=== PATIENT | female | born 1960 | race Caucasian/White ===

== ENCOUNTER 2024-10-29 18:28 | Inpatient (IN) ==
--- OUTSIDE RECORDS SUMMARY | 2024-10-29 18:31 | External Medical Summary | Continuity of Care Document ---
Author Name Unknown Organization [id number] Address [address] [place] [phone] Care Team Providers Care Buying Intern Name Role Phone Florecita Tucker Primary Care Physician [phone] [facility]counter [id number] Date(s): 10/03/24 - 10/03/24 [facility] [address] [place], [place] [id number] [facility] Medicine [address] [place] [id number] Encounter Diagnosis Lumbar spondylosis(Discharge Diagnosis) - 10/03/24 Discharge Disposition: Home or Self Care Attending Physician: DO Tang Jina Allergies, Adverse Reactions, Alerts No Known Allergies Immunizations Given and Recorded Vaccine Date Status Refusal Reason influenza virus vaccine, inactivated 09/01/22 Give n influenza virus vaccine, inactivated 10/01/21 Give n Medications amitriptyline 25 mg oral tablet Start: 05/24/24 12:00:00 PM EDT, 1 tab, PO, qhs, Disp# 30 tab, Refills: 2, Pharmacy: [facility] Start Date: 05/24/24 Status: Ordered azelastine 137 mcg/inh (0.1%) nasal spray Start: 01/31/24 1:13:00 PM EDT, 1 spray, intranasal, bid, Disp# 30 mL, Refills: 2, PRN: NEEDED FOR ALLERGIES, Pharmacy: [facility] Start Date: 01/31/24 Status: Ordered ferrous sulfate 325 mg (65 mg elemental iron) oral delayed release tablet Start: 05/24/24 9:51:00 AM EDT, 1 tab, PO, Daily, Disp# 30 tab, Refills: 11, Pharmacy: [facility] Start Date: 05/24/24 Stop Date: 05/19/25 Status: Ordered folic acid 1 mg oral tablet Start: 05/24/24 9:51:00 AM EDT, 1 tab, PO, Daily, Disp# 30 tab, Refills: 11, Pharmacy: [facility] Start Date: 05/24/24 Stop Date: 05/19/25 Status: Ordered gabapentin 400 mg oral capsule Start: 09/18/24 8:37:00 AM EST, 1 cap, PO, tid, Disp# 90 cap, Refills: 1, Pharmacy: [facility] Start Date: 09/18/24 Stop Date: 11/17/24 Status: Ordered lamoTRIgine 25 mg oral tablet Start: 09/08/24 12:52:00 PM EDT, 1 tab, PO, Daily Start Date: 09/08/24 Status: Ordered MAG OXIDE 400MG TAB Start: 09/18/24 7:22:00 AM EST, MAG OXIDE 400MG TAB, 1 tab, PO, Daily, Disp# 30 tab, Refills: 1, Pharmacy [facility] Start Date: 09/18/24 Status: Ordered magnesium oxide 400 mg (241.3 mg elemental magnesium) oral tablet Start: 08/27/23 9:48:00 AM EDT, 1 tab, PO, Daily, Disp# 30 tab, Refills: 11, Pharmacy: [facility] Start Date: 08/27/23 Stop Date: 08/21/24 Status: Ordered meloxicam 15 mg oral tablet Start: 09/15/24 1:34:00 PM EST, 1 tab, PO, Daily, Disp# 30 tab, Pharmacy: [facility] Start Date: 09/15/24 Stop Date: 10/15/24 Status: Ordered pantoprazole 40 mg oral delayed release tablet Start: 12/16/23 1:32:00 PM EST, 1 tab, PO, Daily, Disp# 30 tab, Refills: 5, Pharmacy: [facility] Start Date: 12/16/23 Status: Ordered PARoxetine 40 mg oral tablet Start: 12/15/23 7:21:00 PM EST, 1 tab, PO, Daily, Disp# 90 tab, Refills: 3, Pharmacy: [facility] Start Date: 12/15/23 Status: Ordered propranolol 10 mg oral tablet Start: 06/19/24 2:16:00 PM EDT, 1 tab, PO, bid, Disp# 60 tab, Refills: 5, Pharmacy: [id number] Start Date: 06/19/24 Status: Ordered QUEtiapine 50 mg oral tablet Start: 03/28/24 12:49:00 PM EDT, 2 tab, PO, Daily, Disp# 180 tab, Refills: 1, Pharmacy: [facility] Start Date: 03/28/24 Status: Ordered riboflavin 100 mg oral tablet Start: 05/25/23 1:49:00 PM EDT, 4 tab, PO, Daily, Disp# 120 tab, Pharmacy: [facility] Start Date: 05/25/23 Stop Date: 06/24/23 Status: Ordered SUMAtriptan 50 mg oral tablet Start: 08/10/24 4:33:00 PM EDT, See Instructions, Disp# 9 tab, Refills: 0, TAKE 1 TABLET BY MOUTH ONCE NEEDED FOR MIGRAINE HEADACHE, Pharmacy: [facility] Start Date: 08/10/24 Status: Ordered Mental Status 10/03/24 Barriers to Learning one year None evide nt Mandatory Health Literacy Documentation Yes Health Literacy Communication Barriers N ever Primary Language Portuguese Problem List Condition Confirmation Course Effective Dates Status Health St atus Informant Acute bronchitis Confirmed Active Anxiety Confirmed Active Benign essential HTN Confirmed Active Chronic cough Confirmed Active Chronic diarrhea Confirmed Active Chronic lower back pain Confirmed Active Dizziness Confirmed Active History of urinary incontinence Confirmed Active Benign headache Confirmed Active Bilateral hip pain Confirmed Active Insomnia Confirmed Active Lumbar spondylosis Confirmed Active Migraine Confirmed Active Anxious depression Confirmed Active Myalgia Confirmed Active Night sweats Confirmed Active Body mass index [BMI] 26.0-26.9, adult Confirmed Active Arm pain, left Confirmed Active Fibromatosis, plantar Confirmed Active Rib pain on left side Confirmed Active Daily urinary incontinence Confirmed Active Diagnosis Diagnosis Type Effective Dates Health Status Clinical Service Informant Lumbar spondylosis Discharge Diagnosis 10/03/24 Non-Specified Procedures Procedure Date Related Diagnosis Body Site Status Colonoscopy 1, 2, 3 06/15/24 Compl eted Foot X-ray 4 06/07/23 Completed Hip X-ray 5 02/03/23 Completed Hip arthroplasty Complete d Spine orthopedic surgery Completed 1Transverse colon polyp, polypectomy: Tubular adenoma 2- One 6 mm polyp in the transverse colon, removed with a cold snare. Resected and retrieved. - Redundant colon. - The examination was otherwise normal. 3Repeat colonoscopy in 5 years 4No acute osseous abnormality. 51. Osteopenia and mild degenerative change as above with no acute bony abnormality identified. 2. A left hip arthroplasty is in near anatomic alignment. Social History Social History Type Response Smoking Status Never smoked cigaret martha Sex Sex Representation Female (finding) Ortho Outpt Note * DO Tang Jina: PERFORM, MODIFY Event Display: Ortho Outpt Note Authored Date: Name:NILES IBARRA Patient Number:[id number] :1960 Date of Service:10/03/2024 Primary Care Provider: DO Carl Paige M Referred by: Initial Evaluation Chief Complaint:Kerri san4 yearoldGypsy presents with left low back pain that radiates to the posterior aspect of the left thigh. Symptom:Pain History of Present Illness: Onset:4 weeks_ago after falling off a bench landed on her back Prior trauma / injury/ surgeryof the affected area(s):yes, endorses multiple surgeries in the low back.( surgical records unavailable but CT shows: pete and screw fixation through theL4-5 levels, disc spacer device at L5-S1, L4 and L5 laminectomy.history ofAVNleft hip andleft DAVIDSON Duration / Timing of Symptoms:Intermittent oPain has beenstablesince onset Characteristic of Symptoms:sharp, stabbing, pins and needles/tingling, electrical/shooting oAssociated Neuropathic Symptoms:radiculopathy, no weakness oAssociated Mechanical Joint Symptoms:_no Alleviating Factors:nothing Aggravating Factors:prolonged sitting, prolonged standingand moving her hip Spine or Limb Pain Worse:Limb pain is greater than spine pain Treatments Tried: oMedications: Current:Gabapentin ( recently increased) 400 TID Previous:_Mobic, tylenol oTherapeutic Exercise:_3years ago oInjections:_4 years ago in [place] oOther:ice Functional Status: oWork Status:not working oADLs:difficultywith getting dressed and chores around the house 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 Red Flags:deniesred flag symptoms offever, bowel dysfunction, bladder dysfunction,saddle anesthesia, history of cancer [id number] pound weight loss in the last 4 weeks Problems: Lumbar spondylosis Anxious depression Acute bronchitis History of urinary incontinence Arm pain, left Benign essential HTN Dizziness Bilateral hip pain Chronic lower back pain Myalgia Daily urinary incontinence Chronic cough Fibromatosis, plantar Migraine Night sweats Body mass index [BMI] 26.0-26.9, adult Rib pain on left side Insomnia Benign headache Chronic diarrhea Anxiety Procedure History Procedure Procedure Date Comments Hip arthroplasty Spine orthopedic surgery Colonoscopy 06/15/2024 -Repeat colonoscopy in 5 years -Transverse colon polyp, polypectomy:Tubular adenoma -- One 6 mm polyp in the transverse colon, removed with a cold snare. Resected and retrieved.- Redundant colon. - The examination was otherwise normal. Foot X-ray 06/07/2023 -No acute osseous abnormality. Hip X-ray 02/03/2023 -1. Osteopenia and mild degenerative change as above with no acute bony abnormality identified.2. A left hip arthroplasty is in near anatomic alignment. Social History: Alcohol Details:Beer, Wine, 1-2 times per month Employment/School Details:Employed, Work/School description: [employer]. Exercise Comment(s):does 35,000 steps per day Tobacco Risk Assessment:Denies Tobacco Use Medication List Active Medications Ordered amitriptyline: 1 tab, PO, qhs, 30 tab, 2 Refill(s). azelastine nasal: 1 spray, intranasal, bid, PRN: NEEDED FOR ALLERGIES, 30 mL, 2 Refill(s). ferrous sulfate: 1 tab, PO, Daily, for 30 day, 30 tab, 11 Refill(s). folic acid: 1 tab, PO, Daily, for 30 day, 30 tab, 11 Refill(s). gabapentin: 1 cap, PO, tid, for 30 day, 90 cap, 1 Refill(s). lamoTRIgine: 1 tab, PO, Daily. magnesium oxide: 1 tab, PO, Daily, for 30 day, 30 tab, 11 Refill(s). meloxicam: 1 tab, PO, Daily, for 30 day, 30 tab. pantoprazole: 1 tab, PO, Daily, 30 tab, 5 Refill(s). PARoxetine: 1 tab, PO, Daily, 90 tab, 3 Refill(s). propranolol: 1 tab, PO, bid, 60 tab, 5 Refill(s). QUEtiapine: 2 tab, PO, Daily, 180 tab, 1 Refill(s). riboflavin: 4 tab, PO, Daily, for 30 day, 120 tab. SUMAtriptan: See Instructions, TAKE 1 TABLET BY MOUTH ONCE NEEDED FOR MIGRAINE HEADACHE, 9 tab, 0 Refill(s). unlisted medication: 1 tab, PO, Daily, 30 tab, 1 Refill(s). Medications Inactivated in the Last 72 Hours No medications found. Allergies (2) ActiveReaction NKANone Documented No Known Medication AllergiesNone Documented Family History: Mother: Glaucoma; Macular disease Father: Renal cell carcinoma MGF: Malignant tumor of lung MGM: Type II diabetes mellitus Review of Systems: A comprehensive review of systems was negative except for pertinent items noted in HPI. Physical Examination: Vital Signs: No Vitals Over the Past 24 Hours Found General: Alert and oriented.Patient in no apparent distress. Psych: Affect normal and appropriate. HEENT: Head normocephalic and atraumatic. Neck is supple. Chest: Breathing is non-labored. Skin: There are no gross skin lesions. Gait:Antalgic Lumbar Exam Lumbar Spine: Inspection: Skin intact.surgical site intact AROM:Pain-limited ROMPain, at end range of extension, with ipsilateral oblique extension (facetjoint loading)to the left Left side-bending produces, produces ipsilateral pain. Palpation:Tenderness over, Bilateral, paraspinal muscles/facet joints Tenderness over, Left:Sacroiliac/PSISand left greater trochanter FAIR Test (Piriformis):Negative SI Joint Multitest Regimen of Pain Provocation Tests:Thigh thrust test (Femoral Shear test), Bruno's sign (extreme DAYSI), Gaenslen test (pelvic torsion test)negativeDistraction test (gapping test), Compression test (approximation test)negative Isabel's Sign, Negative Neuro: Sensation:Intact Strength:5/5 throughout bilateral lower limbs, except for the following:pain induced weakness with hip flexion and knee extension DTRs:2+ throughout bilateral lower limbs except for the following:, 0, Achilles (S1)bilaterally Tests for lumbar radiculopathy: Slump (for radicular symptoms):, Negative Phalen's sign for radicular lumbar spinal stenosis (passive extension for up to 1 minute):negative Long tract signs (UMN signs):Ankle clonus, babinski sign, negative RECENT PERTINENT STUDIES: CT lumbar spine, pelvis without contrast 10/01 History: Back pain. Hip pain Comparison: CT abdomen/pelvis 07/02/2023 Findings: There are 5 lumbar type vertebrae. Regarding alignment, the lumbar spine alignment appears preserved. Bilateral transpedicular pete and screw fixation through the L4-5 levels. The level above fixation demonstrate severe discogenic degenerative change, L3-4. There is a disc spacer device at L5-S1. There are L4 and L5 laminectomy changes. There is moderate to severe bilateral neuroforaminal stenosis at L3-4. No substantial neuroforaminal stenosis of the remainder of the lumbar spine. The visualized adjacent paraspinous tissues are grossly within normal limits. A total left hip arthroplasty appears intact. No visualized right or left hip fracture. No perihardware fracture. Small area of avascular necrosis is seen about the subchondral right femoral head without evidence for collapse, measuring approximately 14 mm. Mild to moderate degenerative change of the pubic symphysis. Mild SI joint degenerative change. Impression: No acute bony abnormality of the lumbar spine or pelvis. 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 Fixation changes and laminectomy changes at L4-5. Severe L3-4 discogenic degenerative change. Electronically signed by Chucky Alexander 09-08-2024 5:57 PM EMG/NCS: none ASSESSMENT: 1.Bilateral( L> R) Low BackPainradiating intoposterior left thigh w/ hx of priorsurgeries in the low back.( surgical records unavailable but CT shows: pete and screw fixation through the L4-5 levels, disc spacer device at L5-S1, L4 and L5 laminectomy.history ofAVNleft hipandleft DAVIDSON. LikelyconcomitantL > R Lumbar Facet-mediated Pain givenpain with extension, pain with ipsilateral oblique extension, tenderness over facet joints, facet arthropathy seen on diagnostic imaging Likelyconcomitant Lumbar Radiculopathy given radicular complaints,positive dural tensions signs, sensory deficits, motor deficits PossiblySpinal Stenosis Possible Sacroiliac Joint Pain giventenderness over PSIS/SIJ(L) LikelyconcomitantMyofascial Pain givenpain reproduced with muscular stretch, tenderness to palpation Likely concomitant hypersensitization given hypersensitivety to touch 2.LeftHip Pain s/pleft DAVIDSON Likely Upper Lumbar Radiculopathy Likely Greater Trochanteric Pain Syndrome giventenderness over lateral hip, positive Lucrecia's test PLAN: Diagnostics: Lumbar MRI with and without contrastgiven acute pain, weakness, and concern for lumbar radiculopathy and hx of prior lumbar surgeries and recent trauma to the area Injections: None at this time Patient has had multiple back surgeries and may not be a good candidate for spine injections, pending MRI results, could consider caudal injection __ _ Medications: None at this time She is already taking gabapentin 400 mg TID _ Modalities: Prescription given for home TENS unit Orthotics:/DME None at this time Therapeutic exercise: Pending MRI results, would benefit from PT Consult: Low threshold to refer to ortho (patient requested ) to evaluate left DAVIDSON Education: A lengthy discussion was held with the patient regarding their diagnosis andprognosis. We discussed workup and treatment strategies including physical therapy, pharmacologic management, injections, and surgery The patients questions were sought and answered satisfactorily. Other: Reviewed prior notes fromthe ED and Matilde Brock DO Follow-up visit: Scheduled for:follow up to coincide with completion of, diagnostic testing. Will discuss MRI results and possible PT vs gabapentin increase vs possible caudal. Patient's symptomsare unstable and it is not safe for PT at this time. Advised patient to seek urgent medical attention if they develop new onset progressive weakness and/or bowel/bladder dysfunction Joy Tang DO Sports Medicine and Interventional Spine Physical Medicine & Rehabilitation Total time on the date of the encounter which includes both the lcyu-za-upwd and tjn-vapf-dc-face time personally spent by the physician and/or other qualified health resident caregiver(s) on the day of the encounter consisting of a total of60 minutes(consult level 4) including Medical Decision Making, preparing to see the patient (eg, review of tests), obtaining and/or reviewing separately obtained history, performing a medically appropriate examination and/or evaluation, counseling and educating the patient/family/caregiver,ordering medications, tests, or procedures,referring and communicating with other health workforce investment act career manager, documenting clinical information in the electronic or other health record, independently interpreting results (not separately reported) and communicating results to the patient/ family/caregiver, care Electronic Signature on File CC: Florecita Tucker [id number] [id number] Electronically Reviewed/Signed by: Joy Tang DO Author Signature Dt/Tm:10/03/2024 06:02 PM Division of Sports Medicine [facility] * DO Tang Jina: PERFORM Event Display: Ortho Outpt Note Authored Date: [id number] . Electronic Signature on File Electronically Reviewed/Signed by: Joy Tang DO Author Signature Dt/Tm:10/03/2024 06:36 PM Division of Sports Medicine [facility] Patient Care team information Care Team Personnel Name: MD Maximilian, Viktor Mason Position: Physician - Family Med Member Role: Lifetime Relationship Address: [address] [place] [address] [place] Name: DO Sen Amanda Position: Resident Member Role: Lifetime Relationship Address: [address] [place] [address] [place] Name: KACEY Delgado Katy Marie Position: Nurse Pract - Family Med Member Role: Lifetime Relationship Address: [address] [place] [address] [place] Name: DO Tucker Paige M Position: Resident Member Role: Primary Care Provider Address: [facility] [address]
[2024-10-29] MEDS: MIDAZOLAM HCL 5 MG/ML 2ML VIAL IV STA (18:35)
[2024-10-29] MEDS: SODIUM BICARB 8.4% INJ 50 MEQ/50 ML SYR IV STA ×2 (18:43→21:20)
[2024-10-29] MEDS: EPINEPHrine/NSS 4 MG/254 ML BAG IV SCH (18:49)
--- NOTE | 2024-10-29 18:56 | XRay Report ---
EXAM: Radiograph of the Chest 1 View INDICATION: Intubation. TECHNIQUE: Frontal view of the chest. Image obtained at 6:47 PM. COMPARISON: 08/27/2021 FINDINGS: Lungs and pleural spaces: Shallow inspiration. Patchy right perihilar airspace disease and central airway thickening noted. No pleural effusion or pneumothorax. Heart: Shape and configuration within normal limits allowing for technique. Mediastinum: Normal contour. Bones/joints: No fracture, erosion or dislocation. Soft tissues: No abnormality noted. No radiopaque foreign body noted. Tubes, lines and devices: The endotracheal tube terminates 1.8 cm above the tim. Upper abdomen: No abnormality noted. IMPRESSION: 1. Patchy right perihilar and basilar atelectasis or pneumonia and minimal underlying bronchitis probable. 2. Lines and tubes as above. ACT 112: Negative or not required by law. Electronically signed by Estella Braun 10-29-2024 6:56 PM
[2024-10-29 19:03] LABS: Base Excess VBG 1.6 mEq/L; HCO3 VBG 29 mmol/L; Oxygen Saturation VBG 79.3 %; PCO2 VBG 56 mmHg (38-50); PO2 VBG 50 mmHg; pH VBG 7.32 (7.36-7.41)
[2024-10-29] MEDS: SODIUM CHLORIDE 0.9% 1,000 ML IV ONE (19:03)
[2024-10-29] MEDS: STAT IV Infusion **Titration per Protocol STA (19:03)
[2024-10-29] MEDS: RAPID SEQUENCE INDUCTION BAG ONE (19:03)
[2024-10-29] MEDS: NA BICARBONATE 8.4% 150 MEQ in D5W 1,000 ML IV SCH (19:10)
[2024-10-29 19:12] LABS: Basophils # (auto) 0.05 K/uL (0.00-0.20); Basophils % (auto) 0.9 %; Eosinophils # (auto) 0.12 K/uL (0.00-0.50); Eosinophils % (auto) 2.2 %; Hematocrit (blood only) 32.4 % (37.0-47.0); Immature Granulocytes # (auto) 0.01 K/uL (0.01-0.20); Immature Granulocytes % (auto) 0.2 %; Lymphocytes # (auto) 2.35 K/uL (1.20-3.40); Lymphocytes % (auto) 43.4 %; Mean Corpuscular Hemoglobin 30.3 pg (25.0-34.0); Mean Corpuscular Volume 89.3 fL (80.0-100.0); Mean Platelet Volume 9.1 fL (9.4-12.4); Monocytes # (auto) 0.47 K/uL (0.11-0.59); Monocytes % (auto) 8.7 %; Neutrophils # (auto) 2.41 K/uL (1.40-6.50); Neutrophils % (auto) 44.6 %; Platelet Count 239 K/uL (130-400); RDW Coefficient of Variation 12.8 % (11.5-14.5); RDW Standard Deviation 41.8 fL (36.4-46.3); Red Blood Count 3.63 M/uL (4.20-5.40); White Blood Count 5.41 K/ul (4.8-10.8)
[2024-10-29 19:14] LABS: Appearance Urine Clear (Clear); Bacteria Urine Automated None Seen (None Seen); Bilirubin Urine Negative (Negative); Blood Urine Negative (Negative); Cast Urine Automated 0-2 /lpf (0-2); Color Urine Yellow; Epithelial Cell Urine Auto 0-2 /hpf (0-2); Glucose Urine UA Negative (Negative); Ketones Urine Negative (Negative); Leukocyte Esterase Urine Negative (Negative); Nitrite Urine Negative (Negative); Protein Urine Trace (Negative); RBC Urine Automated 0-2 /hpf (0-2); Specific Gravity Urine 1.004 (1.000-1.030); Urobilinogen Urine Negative (Negative); WBC Urine Automated 0-5 /hpf (0-5)
[2024-10-29 19:22] LABS: Acetaminophen < 3 ug/ml (10-30); Salicylate < 3.0 mg/dl (3.0-30)
[2024-10-29] MEDS ORDERED: MIDAZOLAM BOLUS FROM BAG IV PRN (19:22)
[2024-10-29 19:27] LABS: Alanine Aminotransferase 14 U/L (7-52); Albumin Globulin Ratio 1.5 (0.9-2); Albumin Level 3.5 gm/dl (3.4-5.0); Alkaline Phosphatase 71 U/L (34-104); Anion Gap 9 (3-11); Aspartate Aminotransferase 22 U/L (13-39); BUN Creatinine Ratio 13.6 (10-20); Bilirubin,Total 0.4 mg/dl (0.2-1.0); Blood Urea Nitrogen 15 mg/dl (6-23); Calcium 11.2 mg/dl (8.6-10.3); Carbon Dioxide 28 mmol/L (21-32); Chloride 104 mmol/L (98-107); Creatine Kinase 63 U/L (26-192); Creatinine Clr Calc Pharmacy 60.2 ml/min; Globulin 2.4 gm/dl (2.5-4.0); Glucose 120 mg/dl (70-99(Fasting)); Lipase 24 U/L (11-82); Magnesium 1.7 mg/dl (1.7-2.4); Potassium 3.8 mmol/L (3.5-5.1); Sodium 141 mmol/L (136-145); Total Protein 5.9 gm/dl (6.0-8.3)
[2024-10-29 19:32] LABS: Troponin I High Sensitivity < 2.3 pg/ml (0-14)
[2024-10-29 19:34] LABS: Amphetamines+Metham, Urine Neg (Neg); Barbiturates, Urine Neg (Neg); Benzodiazepine, Urine Neg (Neg); Cocaine, Urine Neg (Neg); Fentanyl, Urine Neg (Neg); MDMA (Ecstacy), Urine Neg (Neg); Marijuana, Urine Pos (Neg); Methadone, Urine Neg (Neg); Opiate, Urine Neg (Neg); Phencyclidine, Urine Neg (Neg)
[2024-10-29] MEDS: GLUCAGON 5 MG in SYRINGE 0 ML IV ONE (19:38)
[2024-10-29] MEDS: MIDAZOLAM HCL 125 MG/250 ML BAG IV PRN (20:04)
[2024-10-29 20:15] LABS: Prothrombin Time 10.7 Seconds (9.0-12.0)
--- NOTE | 2024-10-29 20:32 | Procedure Note ---
Procedure Note Date of Service October 29, 2024 INTERNAL JUGULAR CENTRAL LINE PROCEDURE NOTE: Procedure: Internal Jugular Central Line Placement Proceduralist: Anthony ERAZO ([facility] Attending: Dr. CHO Indication: Central Drug Administration, Poor Venous Access, Multiple Lab Draws Necessary, etc. Anesthesia: Versed Emergent Consent was implied as patient is full code, intubated and requiring rapidly escalating vasactive medicaitions and adequate central access is needed. There was no family immediately available. A time-out was completed verifying correct patient, procedure, site, positioning. Patients RIGHT Neck was scouted and appropriate vessel and target was identified. The site was then cleansed and draped in the typical sterile fashion using Chloraprep. The Internal Jugular Vein and Carotid Artery were identified using ultrasound, the Internal Jugular vein was cannulated under direct ultrasound guidance using an introducer needle on a syringe. Good venous blood return was maintained prior to removal of syringe from introducer needle. Using Seldinger Technique, a guide wire was advanced through the introducer needle without resistance. The introducer needle was removed and ultrasound images were obtained of the guide wire within the Internal Jugular Vein. A sma ll incision was made in penetrating fashion at the guide wire insertion site utilizing an 11 blade scalpel. The dilator was advanced to the vessel without resistance. The dilator was exchanged for the triple lumen catheter which was advanced into the vessel without resistance. The guide wire was removed intact from the catheter without issue. Claves were placed on each catheter tip with confirmation of good blood flow from each lumen. Each port was easily flushed with sterile saline. The catheter was placed at 17 cm and sutured in place. BioPatch was applied to the catheter and a sterile Tegaderm dressing was applied over the catheter with careful attention to sterility. Patient tolerated procedure well. No immediate complications were met. Post procedure x-ray was completed, placement was deep and will be withdrawn approx 2 cm. no pneumothorax was noted. Images obtained are not saved for permanent record as this was emergent/urgent Artery AND Vein visualized: YES Compressible Vein: YES Guidewire or Short Catheter seen in vein prior to dilation: YES [facility] [place] [place] Procedure Codes (Charges) Tubes, Drains, and Vasc Access Procedure 1: Tubes, Drains, and Vasc Access: [id number] Insertion Of Non-tunneled Catheter Age 7 Yrs> Coding CPT Codes Tubes, Drains, and Vasc Access - Tubes, Drains, and Vasc Access: [id number] Insertion Of Non-tunneled Catheter Age 7 Yrs> ([id number]) Additional Codes Date of Service (PG.SURGERY)
--- NOTE | 2024-10-29 20:32 | Procedure Note ---
Procedure Note Date of Service October 29, 2024 ARTERIAL LINE PROCEDURE NOTE: Procedure: Arterial Line Placement Proceduralist: Anthony ERAZO ([facility]) Attending: Dr. CHO Indication: Monitoring on Pressors Anesthesia: xLidocaine 1% Emergent Consent was implied as patient was full code, on escalating doses of vasoactive medications requiring accurate monitoring. A time-out was completed verifying correct patient, procedure, site, positioning, Allens test was performed to ensure adequate perfusion. Patients RIGHT wrist was scouted and appropriate target identified using ultrasound. The wrist prepped and draped in the usual sterile fashion. Ultrasound guidance was used to aid needle placement. A 20g Arrow arterial line was introduced into the RIGHT RADIAL artery, brisk return of blood and wire was advanced without resistence, the catheter was advanced and the needle was removed. There was lack of appropriate blood flow, the catheter was then backed out until spurting blood was noted, the wire was again advanced without resistence and catheter was again threaded, remained withoug appropriate blood flow or waveform. This was attempted x2 times without success, decision was made to do another stick. Again ultrasound was used to directly observe needle and placement, brisk flash of blood was noted and wire was threaded without difficulty, th Catheter was threaded, and the needle was removed again without blood flow, the catheter was then backed out until good spurting blood was noted, the wire was advanced without resistance and the catheter was then advanced over the wire. This resulted in adequate waveform as well as blood return. The line was then sutured in place, however quicly became positional and dampened. Will likely need to re-wire or do another stick. Blood Loss: Minimal Complications: None immediate noted Artery Identified: YES Complications: NONE immediate however very positional and dampened Patient tolerated procedure: WELL 10/30/24- 2299 Re- do arterial line procedure on LEFT Procedure: Arterial Line Placement Proceduralist: Anthony ERAZO ([facility]) Attending: Dr. CHO Indication: Monitoring on Pressors Anesthesia: [x]None Emergent Consent was implied as patient is full code and requiring frequent blood draws and vasoactive support. A time-out was completed verifying correct patient, procedure, site, positioning. Allens test was performed to ensure adequate perfusion. Patients LEFT wrist was prepped and draped in the usual sterile fashion. Ultrasound guidance was used to aid needle placement. A 20g Arrow arterial line was introduced into the LEFT RADIAL artery x1 attempt. Brisk blood flow was noted, wire was advanced without resistance and the catheter was threaded without resistance. The needle was removed with appropriate blood return, it was attached to pressure tubing noting a good arterial waveform. The line was secured with suture. The patient tolerated the procedure well. Blood Loss: Minimal Complications: None immediate Artery Identified: YES Complications: NONE immediate Patient tolerated procedure: [place] [facility] [place] Codes (Charges) Tubes, Drains, and Vasc Access Procedure 1: Tubes, Drains, and Vasc Access: [id number] Arterial Cath/Cannulation Sampling/Monitoring/Transfusion Coding CPT Codes Tubes, Drains, and Vasc Access - Tubes, Drains, and Vasc Access: [id number] Arterial Cath/Cannulation Sampling/Monitoring/Transfusion ([id number]) Additional Codes Date of Service ([email or web address])
--- NOTE | 2024-10-29 20:32 | Critical Care Consultation ---
Date of Consultation October 29, 2024 Assessment & Plan (1) Suicide attempt by beta chavez overdose: (2) Seizure: (3) Respiratory failure: (4) Required emergency intubation: (5) Shock: (6) Intentional overdose: Plan Reason Critically Ill: 64 YOF presented unresponsive requiring intubation in the field, seizure x2, bradycardic and hypotensive. Found with suicide note and multiple empty bottles around the patient, most concerning at this time would be the empty bottle of propranolol found in conjunction with her bradycardia and hypotension. Neuro - Intubated and sedated, encephalopathy, Seizure, concern for anoxic brain injury CAM ICU: JOANNE - Found unresponsive at home requiring intubation in setting of suicide attempt with multiple agents- unknown down time at home - I am concerned for anoxic injury as patient remains with GCS 3T- without gag, without response to painful stimuli, overbreathing vent by 1bpm - too early at this time to prognosticate- she has multiple sedating/altering medications likely on board - Seroquel and lamotrigine as well as seizure x2 earlier - CT head with NO acute intracranial process reported- consider advanced imaging with MRI within 24-48 hours pending neurological exams and EEG - At this time 72 hours would be omar to provide a better prognostication- supportive care at this time with maintaining- normothermia, normoxia, normoglucose, normocarbia - Patient seized x2 - self terminated- versed infusion at this time- EEG in morning- if seizure re-occurs contact tertiary center- likely related to ingestion and/or anoxia - follow neurological exams and pupillometer assessments- currently with NPI > 3.0 bilaterally - Tox screen + marijuana negative- Tylenol and asa level negative - ETOH level 78 - without AGAP Cardiac - shock in setting of likely bb overdose, - Currently responding favorable to - glucagon administration, epinephrine infusion, and BiCARB infusion - appreciate poison control assistance- if worsening of shock - initiate high dose insulin infusion and discuss for possible ECMO - shoot for PH ~7.5 continue BI-carb infusion provide another 100meq bolus now - Qtc monitoring with ECG and telemetry Respiratory - emergent intubation in the field secondary to overdose attempt - ETT placement verified with CXR appropriate - oxygenating well on minimal vent settings - trend EtCO2 GI - NO acute needs - OGT LIWS - NPO RENAL/LYTES - alkalinize as above - goal PH - 7.5-7.55 continue isotonic HCO3 - VBG q4h - replete electrolytes - Parra catheter to gravity ENDO - ICU hyperglycemic protocol HEME - NO acute needs ID - No concern at this time for infective process LINES/IV ACCESS - CVL, Holden, Parra, OGT, ETT Continue use of these lines DVT PROPHYLAXIS - SCDS, DISPO - ICU while intubated and sedated and requiring vasopressor agents Family: Son did call in around 2300 and will be unable to make it in tonight. He was updated on current status to include hemodynamics and concern for neurological injury as well as supportive care and time frame to be able to prognosticate a recovery status. Did ask appropriate questions regarding her current state. He will be in to see her likely in the morning. Did discuss code status and continues with FULL CODE at this time. I have personally spent 63 minutes of critical care time in the direct management of this patient. This is a life/limb threatening event. This includes time spent evaluating patient, direct bedside care, chart review, placing orders, interpretation of diagnostic studies, discussion with consultants, patient, and family members, as well as other required patient management activities. This time is exclusive of all separately billable procedures, and separate from and in addition to any other critical care service time. Thank you for allowing us to participate in the care of this patient. Please refer to my attending physician's documentation for any further recommendations. History of Present Illness Reason for Consultation: Shock secondary to BB overdose as well as other multiple agents- requiring rapidly escalating doses of epinepherine Requesting Physician: Domingo Street MD Attending Physician: Dale Wall MD History of Present Illness 64 YOF presented to the ER via EMS following activation requiring intubation in the field. She was bradycardic, hypotensive as well as seizure x2 that reportedly self terminated but did receive 2mg Ativan enroute. Reportedly patient was found at home unresponsive with suicide note, stating that she has been hoarding her medications with a plan to overdose. She was found with empty bottles of Seroquel, Propranolol, Lamotrigine and these are suspected as her ingestion. In the ER she was given Narcan, 100meq Bicarb, and started on Epinephrine infusion. Due to her poor access in hands and thumb ICU was emergently consulted to assist with obtaining access and monitoring while patient was continued to be resuscitated and case discussion with experts by the ER physician. Access was obtained and patient was favorably responding currently to glucagon administration, Epinephrine infusion, and Bicarbonate infusion. Appreciate recommendations from poison control as well. Will continue with versed infusion for seizure prophylaxis, continue to alkalinize the patient, and continue epinephrine infusion. If further decompensation occurs will initiate high dose insulin infusion and consider possibility for ECMO support. ER physician was able to get in touch with son and he is en route to the hospital if he can obtain a ride, and is currently ~1 hour away. It was passed to me that he said do everything possible at this time. CODE: FULL Allergies Allergy/AdvReac Type Severity Reaction Status Date / Time oxycodone [From OxyContin] Allergy Hives Verified 09/27/24 10:44 Home Medications Medication Instructions Recorded Confirmed Type folic acid 1 mg tablet 1 mg PO DAILY 09/27/24 09/27/24 History gabapentin 400 mg capsule 400 mg PO TID 09/27/24 09/27/24 History lamotrigine 25 mg tablet 25 mg PO DAILY 09/27/24 09/27/24 History magnesium oxide 400 mg (241.3 mg 400 mg PO DAILY 09/27/24 09/27/24 History magnesium) tablet meloxicam 15 mg tablet 15 mg PO DAILY 09/27/24 09/27/24 History pantoprazole 40 mg tablet,delayed 40 mg PO DAILY 09/27/24 09/27/24 History release paroxetine HCl 40 mg tablet 40 mg PO DAILY 09/27/24 09/27/24 History riboflavin (vitamin B2) 100 mg 100 mg PO DAILY 09/27/24 09/27/24 History tablet sumatriptan succinate 25 mg tablet See Rx Instructions PO .COMPLEX 09/27/24 09/27/24 History Patient History Medical History No significant past medical history Surgical History H/O breast augmentation History of hip replacement History of tubal ligation S/P spinal surgery Social History (System 11/05/23 @ 11:29 by Katherin Stover) Smoking Status: Never smoker Preferred Language: 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 Feels Safe at Home: Yes Review of Systems Review of Systems: unable to obtain secondary to intubation and sedation Physical Exam Physical Exam: PHYSICAL EXAM: General: sedated, no spontaneous movements noted Head: Normocephalic, atraumatic Neuro: intubated and sedated, Pupils sluggish bilaterally, overbreathing vent by 1 bpm, unable to illicit gag with suctioning, no response to deep pain at this time- GCS 3T Chest: equal rise and fall of the chest, no accessory muscle use, or thrills, Clear to auscultation, minimal vent settings Cardiac: Regular rate and rhythm, telemetry reviewed- sinus bradycardia, skin cool and dry, central access obtained- on epinephrine infusion. GI: NABS x 4 quadrants, soft, nontender to palpation, OGT placed with good positioning : Parra in place draining dilute yellow urine Skin: no rash or erythema Results & Data Results & Data Vital Signs (Past 12 Hours) Vital Signs Pulse Pulse Resp BP BP Pulse Ox O2 Del Method 10/29/24 20:06 63 18 133/96 100 10/29/24 19:45 59 L 18 144/96 H 100 10/29/24 19:35 53 L 18 125/86 100 10/29/24 19:35 125/86 10/29/24 19:35 125/86 10/29/24 19:30 119/85 10/29/24 19:15 52 L 18 120/69 98 10/29/24 19:00 52 L 18 116/81 96 10/29/24 19:00 52 L 18 96 10/29/24 19:00 116/81 10/29/24 18:57 52 L 18 95 10/29/24 18:55 81/51 L 10/29/24 18:55 81/51 L 10/29/24 18:55 56 L 18 96 10/29/24 18:54 53 L 41/25 L 85 L Mechanical Vent 10/29/24 18:50 119/71 10/29/24 18:50 119/71 10/29/24 18:48 53 L 18 98 10/29/24 18:48 134/88 10/29/24 18:45 53 L 18 99 10/29/24 18:45 95/69 L 10/29/24 18:45 95/69 L 10/29/24 18:40 80/40 L 80 L Mechanical Vent 10/29/24 18:36 52 L 18 10/29/24 18:33 58 L 10/29/24 18:30 53 L 41/25 L Mechanical Vent FiO2 10/29/24 20:06 10/29/24 19:45 10/29/24 19:35 10/29/24 19:35 10/29/24 19:35 10/29/24 19:30 10/29/24 19:15 10/29/24 19:00 10/29/24 19:00 10/29/24 19:00 10/29/24 18:57 10/29/24 18:55 10/29/24 18:55 10/29/24 18:55 60 10/29/24 18:54 60 10/29/24 18:50 10/29/24 18:50 10/29/24 18:48 10/29/24 18:48 10/29/24 18:45 10/29/24 18:45 10/29/24 18:45 10/29/24 18:40 10/29/24 18:36 10/29/24 18:33 10/29/24 18:30 Laboratory Results Abnormal lab results 10/29/24 10/29/24 10/29/24 Range/Units 18:49 18:50 18:54 RBC 3.63 L (4.20-5.40) M/uL Hgb 11.0 L (12.0-16.0) g/dl Hct 32.4 L (37.0-47.0) % MPV 9.1 L (9.4-12.4) fL VBG pH 7.32 L (7.36-7.41) VBG pCO2 56 H (38-50) mmHg Glucose 120 H (70-99(Fasting)) mg/dl Lactate 3.1 H* (0.4-2.0) mmol/L Calcium 11.2 H (8.6-10.3) mg/dl Total Protein 5.9 L (6.0-8.3) gm/dl Globulin 2.4 L (2.5-4.0) gm/dl Urine Protein Trace H (Negative) Salicylates < 3.0 L (3.0-30) mg/dl Acetaminophen < 3 L (10-30) ug/ml U Marijuana (THC) Screen Pos H (Neg) Ethyl Alcohol mg/dL 74.8 H (<10.0) mg/dl 10/29/24 Range/Units 20:20 RBC (4.20-5.40) M/uL Hgb (12.0-16.0) g/dl Hct (37.0-47.0) % MPV (9.4-12.4) fL VBG pH (7.36-7.41) VBG pCO2 (38-50) mmHg Glucose (70-99(Fasting)) mg/dl Lactate 2.7 H* (0.4-2.0) mmol/L Calcium (8.6-10.3) mg/dl Total Protein (6.0-8.3) gm/dl Globulin (2.5-4.0) gm/dl Urine Protein (Negative) Salicylates (3.0-30) mg/dl Acetaminophen (10-30) ug/ml U Marijuana (THC) Screen (Neg) Ethyl Alcohol mg/dL (<10.0) mg/dl Diagnostic Findings Chest X-Ray 10/29/24 18:21 EXAM: Radiograph of the Chest 1 View INDICATION: Intubation. TECHNIQUE: Frontal view of the chest. Image obtained at 6:47 PM. COMPARISON: 08/27/2021 FINDINGS: Lungs and pleural spaces: Shallow inspiration. Patchy right perihilar airspace disease and central airway thickening noted. No pleural effusion or pneumothorax. Heart: Shape and configuration within normal limits allowing for technique. Mediastinum: Normal contour. Bones/joints: No fracture, erosion or dislocation. Soft tissues: No abnormality noted. No radiopaque foreign body noted. Tubes, lines and devices: The endotracheal tube terminates 1.8 cm above the tim. Upper abdomen: No abnormality noted. IMPRESSION: 1. Patchy right perihilar and basilar atelectasis or pneumonia and minimal underlying bronchitis probable. 2. Lines and tubes as above. ACT 112: Negative or not required by law. Electronically signed by Estella Braun 10-29-2024 6:[address] 10/29/24 18:21 Exam(s): CT HEAD Without Contrast EXAM: CT Head Without Intravenous Contrast CLINICAL HISTORY: Altered mental status. TECHNIQUE: Axial computed tomography images of the head/brain without intravenous contrast. CTDI is 56.32 mGy and DLP is 950.49 mGy-cm. Automated exposure control was utilized for the study. A dose lowering technique was utilized adhering to the principles of ALARA. COMPARISON: No relevant prior studies available. FINDINGS: Brain: Unremarkable. No significant white matter disease. No intracranial hemorrhage, mass-effect or midline shift. No abnormal extra axial fluid. No evidence of acute infarct. Ventricles: Unremarkable. No ventriculomegaly. Bones/joints: Unremarkable. No acute fracture. Soft tissues: Unremarkable. Sinuses: Mild mucosal thickening of the ethmoid sinuses and sphenoid sinuses. There is a small amount of fluid in the sphenoid sinuses which likely relate to patient. Mastoid air cells: Unremarkable as visualized. No mastoid effusion. IMPRESSION: No acute intracranial finding. Electronically signed by: Ellen Li MD 10/29/24 22:41 PM Chest X-Ray 10/29/24 19:20 Exam(s): XR CXR 1 VIEW EXAM: XR Chest, 1 View CLINICAL HISTORY: Central line. TECHNIQUE: Frontal view of the chest. COMPARISON: Chest radiograph 10/29/2024 FINDINGS: Lungs: Stable bilateral airspace opacities. Pleural space: Stable bilateral pleural effusions. No pneumothorax. Heart: The cardiac silhouette is stable. Mediastinum: Unremarkable. Normal mediastinal contour. Bones/joints: There are degenerative changes of the spine. No acute fracture. Tubes, lines and devices: NG tube is present with the tip overlying the stomach and the side-port overlying the distal esophagus. The remaining lines and tubes are stable. IMPRESSION: 1. An NG tube is present with the tip overlying the stomach and the side- port overlying the distal esophagus. Advancement is recommended. 2. The remaining findings are stable. Electronically signed by: Ellen Li MD 10/29/24 21:06 PM Medications Administered Home Medications folic acid 1 mg tablet 1 mg PO DAILY 09/27/24 [History Confirmed 09/27/24] gabapentin 400 mg capsule 400 mg PO TID 09/27/24 [History Confirmed 09/27/24] lamotrigine 25 mg tablet 25 mg PO DAILY 09/27/24 [History Confirmed 09/27/24] magnesium oxide 400 mg (241.3 mg magnesium) tablet 400 mg PO DAILY 09/27/24 [History Confirmed 09/27/24] meloxicam 15 mg tablet 15 mg PO DAILY 09/27/24 [History Confirmed 09/27/24] pantoprazole 40 mg tablet,delayed release 40 mg PO DAILY 09/27/24 [History Confirmed 09/27/24] paroxetine HCl 40 mg tablet 40 mg PO DAILY 09/27/24 [History Confirmed 09/27/24] riboflavin (vitamin B2) 100 mg tablet 100 mg PO DAILY 09/27/24 [History Confirmed 09/27/24] sumatriptan succinate 25 mg tablet See Rx Instructions PO .COMPLEX 09/27/24 [History Confirmed 09/27/24] Active Medications Acetaminophen (Acetaminophen 1000 Mg/100 Ml Iv) 1,000 mg IV Q8H PRN PRN Reason: Pain or Fever Stop: 11/01/24 23:16 Albuterol (Albut/Ipratrop 3mg/0.5mg Neb 3 Ml Vial) 3 ml NEB Q2H PRN; Protocol PRN Reason: dyspnea Stop: 11/28/24 23:16 Enoxaparin Sodium (Enoxaparin Inj 40 Mg/0.4 Ml Syr) 40 mg SQ Q24H LALO Stop: 11/28/24 23:16 Epinephrine HCl () 4 mg in 254 mls @ 7.186 mls/hr IV .Q24H LALO; Protocol Stop: 11/28/24 18:44 Last Titration: 10/29/24 21:00 Dose: 0.25 mcg/kg/min, 89.8 mls/hr Sodium Bicarbonate 150 meq/ (Dextrose) 1,150 mls @ 175 mls/hr IV .Q6H35M LALO Stop: 11/28/24 18:59 Last Infusion: 10/29/24 21:15 Dose: 250 mls/hr Midazolam HCl (Versed) 125 mg in 250 mls @ 2 mls/hr IV .Q96H PRN; Protocol PRN Reason: Sedation Stop: 11/28/24 19:21 Last Admin: 10/29/24 20:04 Dose: 2 mg/hr, 4 mls/hr Pantoprazole Sodium (Protonix) 40 mg in 10 mls @ 5 mls/min IV BID LALO Stop: 11/28/24 23:16 Midazolam HCl (Midazolam Bolus From Bag) 2 mg IV Q60M PRN PRN Reason: Sedation Stop: 11/28/24 19:21 Miscellaneous (Icu Protocol For Hyperglycemia) 1 each N/A Q6 LALO Stop: 11/01/24 00:00 Ondansetron HCl (Ondansetron Inj 2 Mg/Ml 2 Ml Vial) 4 mg IV Q6H PRN PRN Reason: NAUSEA/VOMITING Stop: 11/28/24 23:16 Coding Level of Care Code 51917 CRITICAL CARE 1ST 30-74M Diagnoses Suicide attempt by beta chavez overdose T44.7X2A Encounter type: initial encounter Seizure R56.9 Respiratory failure J96.01; J96.02 Chronicity: acute Respiratory failure complication: hypoxia and hypercapnia Required emergency intubation Z98.890 Shock R57.9 Intentional overdose T50.902A (1) Suicide attempt by beta chavez overdose Encounter type: initial encounter Qualified Code(s): T44.7X2A - Poisoning by beta-adrenoreceptor antagonists, intentional self-harm, initial encounter (3) Respiratory failure Chronicity: acute Respiratory failure complication: hypoxia and hypercapnia Qualified Code(s): J96.01 - Acute respiratory failure with hypoxia; J96.02 - Acute respiratory failure with hypercapnia
[2024-10-29 20:34] LABS: Base Excess VBG 0.1 mEq/L; HCO3 VBG 26 mmol/L; Oxygen Saturation VBG 72.8 %; PCO2 VBG 46 mmHg (38-50); PO2 VBG 41 mmHg; pH VBG 7.36 (7.36-7.41)
--- NOTE | 2024-10-29 20:49 | Emergency Department Note ---
Impression & Plan Suicide attempt by multiple drug overdose, Respiratory failure, Seizure, Suicide attempt by beta chavez overdose ED Provider Note Provider: Domingo Street MD CHIEF COMPLAINT: Overdose, unresponsive HISTORY OF PRESENT ILLNESS: Patient is a 64-year-old female presenting here via ambulance unresponsive and intubated. Contacted by EMS prior to arrival that they were on the scene of a patient who apparently had overdosed and was found unresponsive. Patient was not breathing well and they were bagging the patient. I discussed the case with the EMS providers and they plan to secure her airway prior to arrival with intubation. Upon arrival the patient was intubated by EMS reportedly without incident. Patient was reported to have a brief seizure and generalized shaking episode lasting less than a minute. She received 2 mg of IV Ativan prior to arrival. Patient received 100 meq equivalents by report of bicarbonate IV prior to arrival. Blood sugar reportedly in the 160s. Given Narcan prior to arrival without improvement according to EMS. Upon arrival the patient is unresponsive and intubated. No response to painful stimuli. She is unable to provide meaningful history. EMS to bring multiple pill bottles that they said they found with the patient. Also with the patient was a note written on it the patient appeared to express hopeless thoughts and indicating that she was going to attempt to take her own life and had been hoarding her medications. PAST MEDICAL HISTORY: As noted above MEDICATIONS: Reviewed medication bottles presenting here and prior fill history in the computer. SOCIAL HISTORY: Unavailable due to the patient's intubated and critical status PHYSICAL EXAM: GENERAL: Intubated and unresponsive Head: normocephalic and atraumatic EYES: No injection, discharge or icterus. Pupils 4 mm bilaterally and pinpoint. NECK: Trachea midline. Supple. ENT: Mucous membranes pink and moist. LUNGS: Airway patent. No retractions. Breath sounds coarse throughout but bilateral HEART: Regular bradycardic rate and rhythm. No chest wall tenderness ABDOMEN: Soft and non-tender, without guarding or rebound. SKIN: Acyanotic, but pale. Dry extremities. EXTREMITIES: Without swelling, tenderness or deformity NEUROLOGICAL: No response to painful stimuli. No clonus. No cough or gag. EK bpm sinus bradycardia with PAC. No clear acute ST segment elevation with a bit of baseline artifact. QTc 474. QRS duration 112. CONTINUOUS CARDIAC MONITORING: was ordered and showed a heart rate of 50s to 60s bpm in sinus bradycardia to normal sinus rhythm Patient's laboratory studies and imaging reviewed. Differential includes Overdose, toxicologic, infection, hypoglycemia, electrolyte abnormalities, cardiac sources, intracerebral event, neurologic, trauma, as well as other pathologies. IMPRESSION/MEDICAL DECISION MAKING: Patient again intubated unresponsive upon arrival. Patient transition to our monitoring and vent. Patient within a minute or so arrival had another generalized seizure tonic-clonic in nature lasting less than 30 seconds. Self terminated. Order for 5 mg IV dose of Versed. First blood pressure low systolic in the 40s. Patient bradycardic. Given another amp of IV bicarb as well as a gram of calcium chloride. Patient received multiple boluses of IV epinephrine for hypotension and bradycardia total of approximately 500 mcg. Started on epinephrine drip this was titrated for MAP greater than 65. Did reach out quickly via telephone to poison control and discussed the case with them several times. EKG obtained borderline QRS duration. QTc not severely lengthened. Will start on a bicarb drip. Discussed with the Poison Control Center was given 5 mg of IV glucagon. In discussion with them they recommended aggressive use of vasopressor support. They reported that she could be on higher than normal levels of vasopressors with the beta-chavez overdose. Recommended if refractory hypotension/bradycardia to first and even a second line vasopressors considering glucagon drip versus high dose insulin therapy. If worsened hemodynamic status after this ECMO would be possible. No role for HD/CRRT. Patient will be started in discussion with them on a Versed drip to help try to prevent any further seizure-like events. ICU DRILL PRESS OPERATOR HELPER overnight here was contacted and graciously assisted with central line and arterial line placement. Discussed with patient's son via phone and updated and he is and route to the hospital now and wishes for everything to be done. At this time in discussion with the hospitalist, ICU DRILL PRESS OPERATOR HELPER, and after discussion with the toxicology center we will plan at this point to keep the patient here. If she requires escalating supportive measures may necessitate transfer at that time. Additional pressors, insulin therapy, and glucagon therapy can be considered. Tylenol and aspirin levels not elevated. Will follow VBG's and lactates as well as EKG. Will attempt alkalinization with the bicarb and discussed with toxicology. Alcohol level minimally elevated but I do not believe significantly contributing to the toxidrome at this time. Quick bedside echo does show decreased gross cardiac contractility in my estimation. Will obtain a head CT but lower suspicion for intracranial bleed. There is no trauma history. Repeat lactate slightly improved. Repeat VBG does show pH of 7.36. Will increase bicarb drip. X-ray obtained does show appropriate ET tube and may be a slightly deep central line placement. No pneumothorax visualized. Patient's son was updated via phone. Patient's son would like any updates with decline and update in the morning at minimum. DIAGNOSIS: Intentional polysubstance overdose including beta-chavez overdose, respiratory failure, shock, seizures DISPOSITION: Hospitalist will evaluate as well as the ICU Critical Care I have personally spent 125 minutes of critical care time in the direct management of this patient. This includes bedside care, interpretation of diagnostic studies, and testing, discussion with consultants, patient, and family members, and other required patient management activities. These 125 minutes is in excess of all separately billable procedures. Past Med/Surg History Problem List (Updated 10/29/24 @ 21:04 by KACEY Garza) Intentional overdose Shock Required emergency intubation Suicide attempt by beta chavez overdose (Acute) Seizure (Acute) Respiratory failure (Acute) Suicide attempt by multiple drug overdose (Acute) Mixed incontinence Urinary symptom or sign Medical History No significant past medical history Surgical History H/O breast augmentation History of hip replacement History of tubal ligation S/P spinal surgery Social History (System 11/05/23 @ 11:29 by Katherin Stover) Smoking Status: Never smoker Preferred Language: Vietnamese Feels Safe at Home: Yes Allergies Allergies Allergy/AdvReac Type Severity Reaction Status Date / Time oxycodone [From OxyContin] Allergy Hives Verified 09/27/24 10:44 Home Meds Home Medications Medication Instructions Recorded Confirmed folic acid 1 mg tablet 1 mg PO DAILY 09/27/24 09/27/24 gabapentin 400 mg capsule 400 mg PO TID 09/27/24 09/27/24 lamotrigine 25 mg tablet 25 mg PO DAILY 09/27/24 09/27/24 magnesium oxide 400 mg (241.3 mg 400 mg PO DAILY 09/27/24 09/27/24 magnesium) tablet meloxicam 15 mg tablet 15 mg PO DAILY 09/27/24 09/27/24 pantoprazole 40 mg tablet,delayed 40 mg PO DAILY 09/27/24 09/27/24 release paroxetine HCl 40 mg tablet 40 mg PO DAILY 09/27/24 09/27/24 riboflavin (vitamin B2) 100 mg 100 mg PO DAILY 09/27/24 09/27/24 tablet sumatriptan succinate 25 mg tablet See Rx Instructions PO .COMPLEX 09/27/24 09/27/24 Results & Data (ED) Vital Signs Vital Signs - 24 hr 10/29/24 18:30 10/29/24 18:33 10/29/24 18:36 Temperature Temperature Source Pulse Rate 58 L 52 L Pulse Rate [Apical] 53 L Pulse Rate from SpO2 Sensor Respiratory Rate 18 Blood Pressure Blood Pressure [Left Arm] 41/25 L Blood Pressure Mean Blood Pressure Mean [Left Arm] 30 Blood Pressure Position Blood Pressure Position [Left Arm] Lying Pulse Oximetry Oxygen Delivery Method Mechanical Vent Fraction of Inspired Oxygen SaO2/FiO2 Ratio Sepsis New/Unexplained Change in Mental Status Sepsis Action Taken by Nursing End-Tidal CO2 44 10/29/24 18:40 10/29/24 18:45 10/29/24 18:45 Temperature Temperature Source Pulse Rate Pulse Rate [Apical] Pulse Rate from SpO2 Sensor Respiratory Rate Blood Pressure 95/69 L 95/69 L Blood Pressure [Left Arm] 80/40 L Blood Pressure Mean 75 75 Blood Pressure Mean [Left Arm] 53 Blood Pressure Position Blood Pressure Position [Left Arm] Lying Pulse Oximetry 80 L Oxygen Delivery Method Mechanical Vent Fraction of Inspired Oxygen SaO2/FiO2 Ratio Sepsis New/Unexplained Change in Mental Status Sepsis Action Taken by Nursing End-Tidal CO2 10/29/24 18:45 10/29/24 18:48 10/29/24 18:48 Temperature Temperature Source Pulse Rate 53 L 53 L Pulse Rate [Apical] Pulse Rate from SpO2 Sensor 53 L 53 L Respiratory Rate 18 18 Blood Pressure 134/88 Blood Pressure [Left Arm] Blood Pressure Mean 106 Blood Pressure Mean [Left Arm] Blood Pressure Position Blood Pressure Position [Left Arm] Pulse Oximetry 99 98 Oxygen Delivery Method Fraction of Inspired Oxygen SaO2/FiO2 Ratio Sepsis New/Unexplained Change in Mental Status Sepsis Action Taken by Nursing End-Tidal CO2 38 37 10/29/24 18:50 10/29/24 18:50 10/29/24 18:54 Temperature Temperature Source Pulse Rate 53 L Pulse Rate [Apical] Pulse Rate from SpO2 Sensor Respiratory Rate Blood Pressure 119/71 119/71 41/25 L Blood Pressure [Left Arm] Blood Pressure Mean 96 96 30 Blood Pressure Mean [Left Arm] Blood Pressure Position Lying Blood Pressure Position [Left Arm] Pulse Oximetry 85 L Oxygen Delivery Method Mechanical Vent Fraction of Inspired Oxygen 60 SaO2/FiO2 Ratio 141 Sepsis New/Unexplained Change in Mental Status N/A Sepsis Action Taken by Nursing No Action Required End-Tidal CO2 10/29/24 18:55 10/29/24 18:55 10/29/24 18:55 Temperature Temperature Source Pulse Rate 56 L Pulse Rate [Apical] Pulse Rate from SpO2 Sensor Respiratory Rate 18 Blood Pressure 81/51 L 81/51 L Blood Pressure [Left Arm] Blood Pressure Mean 59 59 Blood Pressure Mean [Left Arm] Blood Pressure Position Blood Pressure Position [Left Arm] Pulse Oximetry 96 Oxygen Delivery Method Fraction of Inspired Oxygen 60 SaO2/FiO2 Ratio Sepsis New/Unexplained Change in Mental Status Sepsis Action Taken by Nursing End-Tidal CO2 43 10/29/24 18:57 10/29/24 19:00 10/29/24 19:00 Temperature Temperature Source Pulse Rate 52 L 52 L Pulse Rate [Apical] Pulse Rate from SpO2 Sensor 52 L 52 L Respiratory Rate 18 18 Blood Pressure 116/81 Blood Pressure [Left Arm] Blood Pressure Mean 89 Blood Pressure Mean [Left Arm] Blood Pressure Position Blood Pressure Position [Left Arm] Pulse Oximetry 95 96 Oxygen Delivery Method Fraction of Inspired Oxygen SaO2/FiO2 Ratio Sepsis New/Unexplained Change in Mental Status Sepsis Action Taken by Nursing End-Tidal CO2 33 36 10/29/24 19:00 10/29/24 19:15 10/29/24 19:30 Temperature Temperature Source Pulse Rate 52 L 52 L Pulse Rate [Apical] Pulse Rate from SpO2 Sensor 52 L 52 L Respiratory Rate 18 18 Blood Pressure 116/81 120/69 119/85 Blood Pressure [Left Arm] Blood Pressure Mean 89 97 94 Blood Pressure Mean [Left Arm] Blood Pressure Position Blood Pressure Position [Left Arm] Pulse Oximetry 96 98 Oxygen Delivery Method Fraction of Inspired Oxygen SaO2/FiO2 Ratio Sepsis New/Unexplained Change in Mental Status Sepsis Action Taken by Nursing End-Tidal CO2 36 36 10/29/24 19:35 10/29/24 19:35 10/29/24 19:35 Temperature Temperature Source Pulse Rate 53 L Pulse Rate [Apical] Pulse Rate from SpO2 Sensor 53 L Respiratory Rate 18 Blood Pressure 125/86 125/86 125/86 Blood Pressure [Left Arm] Blood Pressure Mean 97 97 97 Blood Pressure Mean [Left Arm] Blood Pressure Position Blood Pressure Position [Left Arm] Pulse Oximetry 100 Oxygen Delivery Method Fraction of Inspired Oxygen SaO2/FiO2 Ratio Sepsis New/Unexplained Change in Mental Status Sepsis Action Taken by Nursing End-Tidal CO2 34 10/29/24 19:45 10/29/24 20:06 10/29/24 20:33 Temperature Temperature Source Pulse Rate 59 L 63 59 L Pulse Rate [Apical] Pulse Rate from SpO2 Sensor 59 L 63 60 Respiratory Rate 18 18 18 Blood Pressure 144/96 H 133/96 109/72 Blood Pressure [Left Arm] Blood Pressure Mean 112 108 84 Blood Pressure Mean [Left Arm] Blood Pressure Position Blood Pressure Position [Left Arm] Pulse Oximetry 100 100 100 Oxygen Delivery Method Fraction of Inspired Oxygen SaO2/FiO2 Ratio Sepsis New/Unexplained Change in Mental Status Sepsis Action Taken by Nursing End-Tidal CO2 35 34 34 10/29/24 20:37 10/29/24 20:39 10/29/24 20:45 Temperature Temperature Source Pulse Rate 62 58 L Pulse Rate [Apical] Pulse Rate from SpO2 Sensor 59 L Respiratory Rate 18 18 Blood Pressure 104/72 95/71 L Blood Pressure [Left Arm] Blood Pressure Mean 82 77 Blood Pressure Mean [Left Arm] Blood Pressure Position Blood Pressure Position [Left Arm] Pulse Oximetry 99 100 Oxygen Delivery Method Fraction of Inspired Oxygen 40 SaO2/FiO2 Ratio Sepsis New/Unexplained Change in Mental Status Sepsis Action Taken by Nursing End-Tidal CO2 34 34 10/29/24 20:51 10/29/24 20:55 10/29/24 21:00 Temperature Temperature Source Pulse Rate 56 L Pulse Rate [Apical] Pulse Rate from SpO2 Sensor 56 L Respiratory Rate 18 Blood Pressure 111/75 108/78 111/78 Blood Pressure [Left Arm] Blood Pressure Mean 87 87 85 Blood Pressure Mean [Left Arm] Blood Pressure Position Blood Pressure Position [Left Arm] Pulse Oximetry 100 Oxygen Delivery Method Fraction of Inspired Oxygen SaO2/FiO2 Ratio Sepsis New/Unexplained Change in Mental Status Sepsis Action Taken by Nursing End-Tidal CO2 34 10/29/24 21:10 10/29/24 21:10 10/29/24 21:15 Temperature Temperature Source Pulse Rate Pulse Rate [Apical] Pulse Rate from SpO2 Sensor Respiratory Rate Blood Pressure 107/75 107/75 116/79 Blood Pressure [Left Arm] Blood Pressure Mean 83 83 95 Blood Pressure Mean [Left Arm] Blood Pressure Position Blood Pressure Position [Left Arm] Pulse Oximetry Oxygen Delivery Method Fraction of Inspired Oxygen SaO2/FiO2 Ratio Sepsis New/Unexplained Change in Mental Status Sepsis Action Taken by Nursing End-Tidal CO2 10/29/24 21:20 10/29/24 21:21 10/29/24 21:24 Temperature Temperature Source Pulse Rate 56 L 57 L Pulse Rate [Apical] Pulse Rate from SpO2 Sensor 56 L 57 L Respiratory Rate 18 18 Blood Pressure 108/78 147/97 H Blood Pressure [Left Arm] Blood Pressure Mean 86 113 Blood Pressure Mean [Left Arm] Blood Pressure Position Blood Pressure Position [Left Arm] Pulse Oximetry 100 100 Oxygen Delivery Method Fraction of Inspired Oxygen SaO2/FiO2 Ratio Sepsis New/Unexplained Change in Mental Status Sepsis Action Taken by Nursing End-Tidal CO2 37 36 10/29/24 21:30 10/29/24 21:48 Temperature 36.1 C L Temperature Source Parra Cath ( Temp Sensing) Pulse Rate 57 L Pulse Rate [Apical] 56 L Pulse Rate from SpO2 Sensor Respiratory Rate 18 18 Blood Pressure 137/90 Blood Pressure [Left Arm] 126/78 Blood Pressure Mean 108 Blood Pressure Mean [Left Arm] 94 Blood Pressure Position Blood Pressure Position [Left Arm] Pulse Oximetry 100 Oxygen Delivery Method Mechanical Vent Fraction of Inspired Oxygen SaO2/FiO2 Ratio Sepsis New/Unexplained Change in Mental Status Sepsis Action Taken by Nursing End-Tidal CO2 Laboratory Data 10/29/24 18:49 10/29/24 18:49 Lab Results 10/29/24 10/29/24 10/29/24 Range/Units 18:49 18:50 18:54 WBC 5.41 (4.8-10.8) K/ul RBC 3.63 L (4.20-5.40) M/uL Hgb 11.0 L (12.0-16.0) g/dl Hct 32.4 L (37.0-47.0) % MCV 89.3 (80.0-100.0) fL MCH 30.3 (25.0-34.0) pg MCHC 34.0 (32.0-36.0) g/dL RDW Std Deviation 41.8 (36.4-46.3) fL RDW Coeff of Paulino 12.8 (11.5-14.5) % Plt Count 239 (130-400) K/uL MPV 9.1 L (9.4-12.4) fL Immature Gran % (Auto) 0.2 % Neut % (Auto) 44.6 % Lymph % (Auto) 43.4 % Perkins % (Auto) 8.7 % Eos % (Auto) 2.2 % Baso % (Auto) 0.9 % Neut # (Auto) 2.41 (1.40-6.50) K/uL Lymph # (Auto) 2.35 (1.20-3.40) K/uL Perkins # (Auto) 0.47 (0.11-0.59) K/uL Eos # (Auto) 0.12 (0.00-0.50) K/uL Baso # (Auto) 0.05 (0.00-0.20) K/uL Immature Gran # (Auto) 0.01 (0.01-0.20) K/uL PT 10.7 (9.0-12.0) Seconds INR 1.0 (0.9-1.1) VBG pH 7.32 L (7.36-7.41) VBG pCO2 56 H (38-50) mmHg VBG pO2 50 mmHg VBG HCO3 29 mmol/L VBG O2 Saturation 79.3 % VBG Base Excess 1.6 mEq/L Carboxyhemoglobin 1.4 % THgb Sodium 141 (136-145) mmol/L Potassium 3.8 (3.5-5.1) mmol/L Chloride 104 (98-107) mmol/L Carbon Dioxide 28 (21-32) mmol/L Anion Gap 9 (3-11) BUN 15 (6-23) mg/dl Creatinine 1.10 (0.6-1.2) mg/dl Est Cr Clr Drug Dosing 60.2 ml/min eGFR 56.81 BUN/Creatinine Ratio 13.6 (10-20) Glucose 120 H (70-99(Fasting)) mg/dl Lactate 3.1 H* (0.4-2.0) mmol/L Calcium 11.2 H (8.6-10.3) mg/dl Phosphorus 4.1 (2.5-4.9) mg/dl Magnesium 1.7 (1.7-2.4) mg/dl Total Bilirubin 0.4 (0.2-1.0) mg/dl AST 22 (13-39) U/L ALT 14 (7-52) U/L Alkaline Phosphatase 71 (34-104) U/L Total Creatine Kinase 63 (26-192) U/L Troponin I High Sens < 2.3 (0-14) pg/ml Total Protein 5.9 L (6.0-8.3) gm/dl Albumin 3.5 (3.4-5.0) gm/dl Globulin 2.4 L (2.5-4.0) gm/dl Albumin/Globulin Ratio 1.5 (0.9-2) Lipase 24 (11-82) U/L Urine Color Yellow Urine Appearance Clear (Clear) Urine pH 7.0 (4.5-7.5) Ur Specific [place] 1.004 (1.000-1.030) Urine Protein Trace H (Negative) Urine Glucose (UA) Negative (Negative) Urine Ketones Negative (Negative) Urine Blood Negative (Negative) Urine Nitrite Negative (Negative) Urine Bilirubin Negative (Negative) Urine Urobilinogen Negative (Negative) Ur Leukocyte Esterase Negative (Negative) Urine WBC (Auto) 0-5 (0-5) /hpf Urine RBC (Auto) 0-2 (0-2) /hpf U Hyaline Cast (Auto) 0-2 (0-2) /lpf U Epithel Cells (Auto) 0-2 (0-2) /hpf Urine Bacteria (Auto) None Seen (None Seen) Salicylates < 3.0 L (3.0-30) mg/dl Urine Opiates Screen Neg (Neg) Ur Methadone, Qual Neg (Neg) Urine Fentanyl Screen Neg (Neg) Acetaminophen < 3 L (10-30) ug/ml Urine Barbiturates Neg (Neg) Ur Phencyclidine (PCP) Neg (Neg) U Amphetamin/Meth Scrn Neg (Neg) MDMA (Ecstasy) Screen Neg (Neg) U Benzodiazepines Scrn Neg (Neg) Ur Cocaine Metabolite Neg (Neg) U Marijuana (THC) Screen Pos H (Neg) Ethyl Alcohol mg/dL 74.8 H (<10.0) mg/dl SARS-CoV-2, RNA, NAAT (NEGATIVE) 10/29/24 10/29/24 Range/Units 19:05 20:20 WBC (4.8-10.8) K/ul RBC (4.20-5.40) M/uL Hgb (12.0-16.0) g/dl Hct (37.0-47.0) % MCV (80.0-100.0) fL MCH (25.0-34.0) pg MCHC (32.0-36.0) g/dL RDW Std Deviation (36.4-46.3) fL RDW Coeff of Paulino (11.5-14.5) % Plt Count (130-400) K/uL MPV (9.4-12.4) fL Immature Gran % (Auto) % Neut % (Auto) % Lymph % (Auto) % Perkins % (Auto) % Eos % (Auto) % Baso % (Auto) % Neut # (Auto) (1.40-6.50) K/uL Lymph # (Auto) (1.20-3.40) K/uL [place] # (Auto) (0.11-0.59) K/uL Eos # (Auto) (0.00-0.50) K/uL Baso # (Auto) (0.00-0.20) K/uL Immature Gran # (Auto) (0.01-0.20) K/uL PT (9.0-12.0) Seconds INR (0.9-1.1) VBG pH 7.36 (7.36-7.41) VBG pCO2 46 (38-50) mmHg VBG pO2 41 mmHg VBG HCO3 26 mmol/L VBG O2 Saturation 72.8 % VBG Base Excess 0.1 mEq/L Carboxyhemoglobin % THgb Sodium (136-145) mmol/L Potassium (3.5-5.1) mmol/L Chloride (98-107) mmol/L Carbon Dioxide (21-32) mmol/L Anion Gap (3-11) BUN (6-23) mg/dl Creatinine (0.6-1.2) mg/dl Est Cr Clr Drug Dosing ml/min eGFR BUN/Creatinine Ratio (10-20) Glucose (70-99(Fasting)) mg/dl Lactate 2.7 H* (0.4-2.0) mmol/L Calcium (8.6-10.3) mg/dl Phosphorus (2.5-4.9) mg/dl Magnesium (1.7-2.4) mg/dl Total Bilirubin (0.2-1.0) mg/dl AST (13-39) U/L ALT (7-52) U/L Alkaline Phosphatase (34-104) U/L Total Creatine Kinase (26-192) U/L Troponin I High Sens (0-14) pg/ml Total Protein (6.0-8.3) gm/dl Albumin (3.4-5.0) gm/dl Globulin (2.5-4.0) gm/dl Albumin/Globulin Ratio (0.9-2) Lipase (11-82) U/L Urine Color Urine Appearance (Clear) Urine pH (4.5-7.5) Ur Specific [place] (1.000-1.030) Urine Protein (Negative) Urine Glucose (UA) (Negative) Urine Ketones (Negative) Urine Blood (Negative) Urine Nitrite (Negative) Urine Bilirubin (Negative) Urine Urobilinogen (Negative) Ur Leukocyte Esterase (Negative) Urine WBC (Auto) (0-5) /hpf Urine RBC (Auto) (0-2) /hpf U Hyaline Cast (Auto) (0-2) /lpf U Epithel Cells (Auto) (0-2) /hpf Urine Bacteria (Auto) (None Seen) Salicylates (3.0-30) mg/dl Urine Opiates Screen (Neg) Ur Methadone, Qual (Neg) Urine Fentanyl Screen (Neg) Acetaminophen (10-30) ug/ml Urine Barbiturates (Neg) Ur Phencyclidine (PCP) (Neg) U Amphetamin/Meth Scrn (Neg) MDMA (Ecstasy) Screen (Neg) U Benzodiazepines Scrn (Neg) Ur Cocaine Metabolite (Neg) U Marijuana (THC) Screen (Neg) Ethyl Alcohol mg/dL (<10.0) mg/dl SARS-CoV-2, RNA, NAAT NEGATIVE (NEGATIVE) Administered Medications Epinephrine HCl () 4 mg in 254 mls @ 7.186 mls/hr IV .Q24H [facility]; Protocol Stop: 11/28/24 18:44 Last Titration: 10/29/24 21:00 Dose: 0.25 mcg/kg/min, 89.8 mls/hr Documented By: PAOLA Co-signed By: ANIKA Titration: 10/29/24 20:20 Dose: 0.2 mcg/kg/min, 71.9 mls/hr Documented By: PAOLA Co-signed By: LLUVIA Titration: 10/29/24 19:10 Dose: 0.3 mcg/kg/min, 107.8 mls/hr Documented By: PAOLA Co-signed By: LLUVIA Titration: 10/29/24 18:56 Dose: 0.03 mcg/kg/min, 10.8 mls/hr Documented By: PAOLA Co-signed By: CHIQUIS Admin: 10/29/24 18:49 Dose: 0.02 mcg/kg/min, 7.2 mls/hr Documented By: PAOLA Co-signed By: CHIQUIS Sodium Bicarbonate 150 meq/ (Dextrose) 1,150 mls @ 0 mls/hr IV .Q0M LALO Stop: 11/28/24 18:59 Last Infusion: 10/29/24 21:15 Dose: 250 mls/hr Documented By: Admin: 10/29/24 19:10 Dose: 150 mls/hr Documented By: ANDREW Midazolam HCl (Versed) 125 mg in 250 mls @ 2 mls/hr IV .Q96H PRN; Protocol PRN Reason: Sedation Stop: 11/28/24 19:21 Last Admin: 10/29/24 20:04 Dose: 2 mg/hr, 4 mls/hr Documented By: PAOLA Co-signed By: CHIQUIS Discontinued Medications Sodium Chloride (Nss) 1,000 mls @ 999 mls/hr IV .Q1H1M ONE Stop: 10/29/24 19:37 Last Infusion: 10/29/24 20:30 Dose: Infused Documented By: Admin: 10/29/24 19:03 Dose: 999 mls/hr Documented By: ANDREW Glucagon 5 mg/ Syringe 5 mls @ 1 mls/min IV NOW ONE Stop: 10/29/24 18:55 Last Admin: 10/29/24 19:38 Dose: 1 mls/min Documented By: PAOLA Midazolam HCl (Midazolam Hcl 5 Mg/Ml 2ml Vial) 5 mg IV NOW STA Stop: 10/29/24 18:33 Last Admin: 10/29/24 18:35 Dose: 5 mg Documented By: ANDREW Miscellaneous (Rapid Sequence Induction Bag) Confirm Administered Dose 1 each N/A .STK-MED ONE Stop: 10/29/24 18:33 Last Admin: 10/29/24 19:03 Dose: 1 each Documented By: ANDREW Miscellaneous (Stat Iv Infusion Titration Per Protocol) 1 each N/A NOW STA Stop: 10/29/24 18:38 Last Admin: 10/29/24 19:03 Dose: 1 each Documented By: ANDREW Sodium Bicarbonate (Sodium Bicarb 8.4% Inj 50 Meq/50 Ml Syr) 50 meq IV NOW STA Stop: 10/29/24 18:38 Last Admin: 10/29/24 18:43 Dose: 50 meq Documented By: ASHLEYK Sodium Bicarbonate (Sodium Bicarb 8.4% Inj 50 Meq/50 Ml Syr) 100 meq IV NOW STA Stop: 10/29/24 21:17 Last Admin: 10/29/24 21:20 Dose: 100 meq Documented By: CARLTONK Imaging Data Radiologist's Impression: Chest X-Ray 10/29/24 18:21 EXAM: Radiograph of the Chest 1 View INDICATION: Intubation. TECHNIQUE: Frontal view of the chest. Image obtained at 6:47 PM. COMPARISON: 08/27/2021 FINDINGS: Lungs and pleural spaces: Shallow inspiration. Patchy right perihilar airspace disease and central airway thickening noted. No pleural effusion or pneumothorax. Heart: Shape and configuration within normal limits allowing for technique. Mediastinum: Normal contour. Bones/joints: No fracture, erosion or dislocation. Soft tissues: No abnormality noted. No radiopaque foreign body noted. Tubes, lines and devices: The endotracheal tube terminates 1.8 cm above the tim. Upper abdomen: No abnormality noted. IMPRESSION: 1. Patchy right perihilar and basilar atelectasis or pneumonia and minimal underlying bronchitis probable. 2. Lines and tubes as above. ACT 112: Negative or not required by law. Electronically signed by Estella Braun 10-29-2024 6:56 PM Chest X-Ray 10/29/24 19:20 Exam(s): XR CXR 1 VIEW EXAM: XR Chest, 1 View CLINICAL HISTORY: Central line. TECHNIQUE: Frontal view of the chest. COMPARISON: Chest radiograph 10/29/2024 FINDINGS: Lungs: Stable bilateral airspace opacities. Pleural space: Stable bilateral pleural effusions. No pneumothorax. Heart: The cardiac silhouette is stable. Mediastinum: Unremarkable. Normal mediastinal contour. Bones/joints: There are degenerative changes of the spine. No acute fracture. Tubes, lines and devices: NG tube is present with the tip overlying the stomach and the side-port overlying the distal esophagus. The remaining lines and tubes are stable. IMPRESSION: 1. An NG tube is present with the tip overlying the stomach and the side- port overlying the distal esophagus. Advancement is recommended. 2. The remaining findings are stable. Electronically signed by: Ellen Li MD 10/29/24 21:06 PM Discharge Plan Visit Data Chief Complaint: Overdose (Intentional) Stated Complaint: OVERDOSE ED Provider: [address] Discharge Problem: Suicide attempt by multiple drug overdose, Respiratory failure, Seizure, Suicide attempt by beta chavez overdose Patient Disposition: Being Evaluated by Hospitalist Forms Stand Alone Forms: My [facility], Suicide Prevention Resources Prescriptions Prescriptions: No Action gabapentin 400 mg capsule 400 mg PO TID magnesium oxide 400 mg (241.3 mg magnesium) tablet 400 mg PO DAILY meloxicam 15 mg tablet 15 mg PO DAILY riboflavin (vitamin B2) 100 mg tablet 100 mg PO DAILY paroxetine HCl 40 mg tablet 40 mg PO DAILY folic acid 1 mg tablet 1 mg PO DAILY lamotrigine 25 mg tablet 25 mg PO DAILY pantoprazole 40 mg tablet,delayed release (DR/EC) 40 mg PO DAILY sumatriptan succinate 25 mg tablet See Rx Instructions PO .COMPLEX Rx Instructions: take 1 tab at onset of headache; if no relief may repeat 1 tab after at least 2 hrs; max = 4 tabs/24 hr PO Referrals Referrals: Florecita Tucker DO [Primary Care Provider] - Discharge Problem: Suicide attempt by multiple drug overdose Qualifiers: Encounter type: initial encounter Qualified Code(s): T50.912A - Poisoning by multiple unspecified drugs, medicaments and biological substances, intentional self-harm, initial encounter Respiratory failure Qualifiers: Chronicity: acute Respiratory failure complication: hypoxia and hypercapnia Q ualified Code(s): J96.01 - Acute respiratory failure with hypoxia Suicide attempt by beta chavez overdose Qualifiers: Encounter type: initial encounter Qualified Code(s): T44.7X2A - Poisoning by beta-adrenoreceptor antagonists, intentional self-harm, initial encounter
--- NOTE | 2024-10-29 21:07 | XRay Report ---
Exam(s): XR CXR 1 VIEW EXAM: XR Chest, 1 View CLINICAL HISTORY: Central line. TECHNIQUE: Frontal view of the chest. COMPARISON: Chest radiograph 10/29/2024 FINDINGS: Lungs: Stable bilateral airspace opacities. Pleural space: Stable bilateral pleural effusions. No pneumothorax. Heart: The cardiac silhouette is stable. Mediastinum: Unremarkable. Normal mediastinal contour. Bones/joints: There are degenerative changes of the spine. No acute fracture. Tubes, lines and devices: NG tube is present with the tip overlying the stomach and the side-port overlying the distal esophagus. The remaining lines and tubes are stable. IMPRESSION: 1. An NG tube is present with the tip overlying the stomach and the side- port overlying the distal esophagus. Advancement is recommended. 2. The remaining findings are stable. Electronically signed by: Ellen Li MD 10/29/24 21:06 PM
--- NOTE | 2024-10-29 21:21 | History & Physical Report ---
Date of Service October 29, 2024 Assessment & Plan (1) Admitted to intensive care unit: (2) Intentional overdose: (3) Shock: (4) Required emergency intubation: (5) Suicide attempt by beta chavez overdose: (6) Seizure: (7) Respiratory failure: (8) Suicide attempt by multiple drug overdose: Plan Admitted to intensive care unit/emergency intubation in the field, intentional Rx multidrug drug overdose/shock with hypotension- NPO The patient will be admitted to the ICU for serial cardiac enzymes, serial EKG's, cardiac rhythm monitoring and a 2-D echocardiogram with Dopplers. CT scan of head is negative Chest x-ray with NG tube present needing advanced Continue Versed drip, bicarbonate drip, and epinephrine drip Consult service specialist team for further management Serial CBC with differential, chemistry profile, magnesium, phosphorus PT INR/PTT and troponin No signs of aspiration requiring antibiotics Urine drug screen positive for marijuana, with other testing negative Alcohol level 74.8 Salicylates negative and acetaminophen negative Initial lactate 3.1, with follow-up 2.7, and will follow serially COVID testing negative Pantoprazole 40 mg IV twice daily Zofran 4 mg IV every 6 hours as needed Order MRI brain without contrast, and EEG History of Present Illness Chief Complaint: The patient presented to the emergency department via ambulance, after being found unresponsive, intubated in the field, with a presumed intentional drug overdose with intention to commit suicide with propranolol, and Seroquel, and possibly other drugs. The patient did reportedly have 2 seizure episodes, the first in the field was treated with IV Ativan, and second in the ED was treated with IV Versed Primary Care Provider: Florecita Tucker DO The patient is a 64-year-old female with past medical history including seizure seizure disorder, GERD, anxiety/depression, mixed urinary incontinence, headache, and hypertension. She reportedly had a argument with family, went home, left a suicide note, and took excessive unknown doses of medications propranolol and Seroquel. She was intubated in the field, brought to the e mergency department for assessment. Emergency department in contact with toxicology department in [place], began emergency treatment. In the emergency department patient was placed on bicarbonate drip, epinephrine drip, ventilator management, and laboratories for CBC with differential, chemistry, urine drug screen and urinalysis. Patient remained unresponsive while in emergency department, was referred to [place] hospitalist service for admission to the ICU for ongoing care Allergies Allergy/AdvReac Type Severity Reaction Status Date / Time oxycodone [From OxyContin] Allergy Hives Verified 09/27/24 10:44 Home Medications Medication Instructions Recorded Confirmed Type folic acid 1 mg tablet 1 mg PO DAILY 09/27/24 09/27/24 History gabapentin 400 mg capsule 400 mg PO TID 09/27/24 09/27/24 History lamotrigine 25 mg tablet 25 mg PO DAILY 09/27/24 09/27/24 History magnesium oxide 400 mg (241.3 mg 400 mg PO DAILY 09/27/24 09/27/24 History magnesium) tablet meloxicam 15 mg tablet 15 mg PO DAILY 09/27/24 09/27/24 History pantoprazole 40 mg tablet,delayed 40 mg PO DAILY 09/27/24 09/27/24 History release paroxetine HCl 40 mg tablet 40 mg PO DAILY 09/27/24 09/27/24 History riboflavin (vitamin B2) 100 mg 100 mg PO DAILY 09/27/24 09/27/24 History tablet sumatriptan succinate 25 mg tablet See Rx Instructions PO .COMPLEX 09/27/24 09/27/24 History Past Med/Surg History Problem List (Updated 10/30/24 @ 03:56 by Dale Wall MD) Admitted to intensive care unit Intentional overdose Shock Required emergency intubation Suicide attempt by beta chavez overdose (Acute) Seizure (Acute) Respiratory failure (Acute) Suicide attempt by multiple drug overdose (Acute) Mixed incontinence Urinary symptom or sign Medical History No significant past medical history Surgical History H/O breast augmentation History of hip replacement History of tubal ligation S/P spinal surgery Social History (System 11/05/23 @ 11:29 by Katherin Stover) Smoking Status: Never smoker Preferred Language: Japanese Digital Content Manager Required: No Feels Safe at Home: Yes Review of Systems Review of Systems: Review of systems and HPI were obtained from EMS, as patient was unresponsive and unable to contribute to either Physical Exam Physical Exam: The patient is intubated, sedated on the ventilator, HEENT--PERRL, EOMI, mucous membranes and oropharynx dry. Neck--supple. No JVD. No bruits. Thyroid normal, trachea midline, no adenopathy. Heart--normal S1 and S2. No murmurs, rubs or gallops. Lungs--clear bilaterally, no respiratory distress, no accessory muscle use. Abdomen--normal bowel sounds and soft. Mildly tympanitic and distended Extremities--no cyanosis or clubbing. No edema. Dermatologic--normal skin turgor, normal color, no abnormal lymph nodes, no rash. Neurologic--cranial nerves II through XII grossly intact. Rheumatologic--normal range of motion. Psychiatric--sedated and intubated unresponsive Results & Data Results & Data Vital Signs (Past 12 Hours) Vital Signs Pulse Pulse Resp BP BP Pulse Ox O2 Del Method 10/29/24 20:37 62 18 99 10/29/24 20:06 63 18 133/96 100 10/29/24 19:45 59 L 18 144/96 H 100 10/29/24 19:35 53 L 18 125/86 100 10/29/24 19:35 125/86 10/29/24 19:35 125/86 10/29/24 19:30 119/85 10/29/24 19:15 52 L 18 120/69 98 10/29/24 19:00 52 L 18 116/81 96 10/29/24 19:00 52 L 18 96 10/29/24 19:00 116/81 10/29/24 18:57 52 L 18 95 10/29/24 18:55 81/51 L 10/29/24 18:55 81/51 L 10/29/24 18:55 56 L 18 96 10/29/24 18:54 53 L 41/25 L 85 L Mechanical Vent 10/29/24 18:50 119/71 10/29/24 18:50 119/71 10/29/24 18:48 53 L 18 98 10/29/24 18:48 134/88 10/29/24 18:45 53 L 18 99 10/29/24 18:45 95/69 L 10/29/24 18:45 95/69 L 10/29/24 18:40 80/40 L 80 L Mechanical Vent 10/29/24 18:36 52 L 18 10/29/24 18:33 58 L 10/29/24 18:30 53 L 41/25 L Mechanical Vent FiO2 10/29/24 20:37 40 10/29/24 20:06 10/29/24 19:45 10/29/24 19:35 10/29/24 19:35 10/29/24 19:35 10/29/24 19:30 10/29/24 19:15 10/29/24 19:00 10/29/24 19:00 10/29/24 19:00 10/29/24 18:57 10/29/24 18:55 10/29/24 18:55 10/29/24 18:55 60 10/29/24 18:54 60 10/29/24 18:50 10/29/24 18:50 10/29/24 18:48 10/29/24 18:48 10/29/24 18:45 10/29/24 18:45 10/29/24 18:45 10/29/24 18:40 10/29/24 18:36 10/29/24 18:33 10/29/24 18:30 Laboratory Results Laboratory Results WBC 5.41 K/ul (4.8-10.8) 10/29/24 18:49 RBC 3.63 M/uL (4.20-5.40) L 10/29/24 18:49 Hgb 11.0 g/dl (12.0-16.0) L 10/29/24 18:49 POC Hgb 11.2 g/dl (12.0-16.0) L 10/29/24 23:12 Hct 32.4 % (37.0-47.0) L 10/29/24 18:49 POC Hct 33 % (37-47) L 10/29/24 23:12 MCV 89.3 fL (80.0-100.0) 10/29/24 18:49 MCH 30.3 pg (25.0-34.0) 10/29/24 18:49 MCHC 34.0 g/dL (32.0-36.0) 10/29/24 18:49 RDW Std Deviation 41.8 fL (36.4-46.3) 10/29/24 18:49 RDW Coeff of Paulino 12.8 % (11.5-14.5) 10/29/24 18:49 Plt Count 239 K/uL (130-400) 10/29/24 18:49 MPV 9.1 fL (9.4-12.4) L 10/29/24 18:49 Immature Gran % (Auto) 0.2 % 10/29/24 18:49 Neut % (Auto) 44.6 % 10/29/24 18:49 Lymph % (Auto) 43.4 % 10/29/24 18:49 [place] % (Auto) 8.7 % 10/29/24 18:49 Eos % (Auto) 2.2 % 10/29/24 18:49 Baso % (Auto) 0.9 % 10/29/24 18:49 Neut # (Auto) 2.41 K/uL (1.40-6.50) 10/29/24 18:49 Lymph # (Auto) 2.35 K/uL (1.20-3.40) 10/29/24 18:49 [place] # (Auto) 0.47 K/uL (0.11-0.59) 10/29/24 18:49 Eos # (Auto) 0.12 K/uL (0.00-0.50) 10/29/24 18:49 Baso # (Auto) 0.05 K/uL (0.00-0.20) 10/29/24 18:49 Immature Gran # (Auto) 0.01 K/uL (0.01-0.20) 10/29/24 18:49 PT 10.7 Seconds (9.0-12.0) 10/29/24 18:49 INR 1.0 (0.9-1.1) 10/29/24 18:49 Specimen Type Arterial 10/29/24 23:12 Sample Site Art Line 10/29/24 23:12 POC pH 7.60 (7.35-7.45) H* 10/29/24 23:12 POC pCO2 33 mmHg (35-46) L 10/29/24 23:12 POC pO2 55 mmHg (80-95) L 10/29/24 23:12 POC HCO3 33 umer/L (19-24) H 10/29/24 23:12 POC Total CO2 33 mmol/L (24-31) H 10/29/24 23:12 POC Base Excess 11.0 umer/L (-9-1.8) H 10/29/24 23:12 O2 Sat Pulse Oximetry 95 10/29/24 23:12 ABG pH (Temp Correct) 7.614 (7.35-7.45) H* 10/29/24 23:12 ABG pCO2 (Temp Corrct 32 mmHg (35-46) L 10/29/24 23:12 POC ABG pO2 at Pt Temp 51 10/29/24 23:12 POC ABG O2 Sat 93.0 % (90-95) 10/29/24 23:12 [place]very Test NA 10/29/24 23:12 VBG pH 7.50 (7.36-7.41) H 10/30/24 00:33 VBG pCO2 46 mmHg (38-50) 10/29/24 20:20 VBG pO2 41 mmHg 10/29/24 20:20 VBG HCO3 26 mmol/L 10/29/24 20:20 VBG O2 Saturation 72.8 % 10/29/24 20:20 VBG Base Excess 0.1 mEq/L 10/29/24 20:20 Carboxyhemoglobin 1.4 % THgb 10/29/24 18:49 O2 Delivery Device Ventilator 10/29/24 23:12 Vent Mode AC 10/29/24 23:12 POC FiO2 30 % 10/29/24 23:12 POC Sodium 139 mmol/L (135-144) 10/29/24 23:12 Sodium 141 mmol/L (136-145) 10/29/24 18:49 POC Potassium 3.4 mmol/L (3.3-5.0) 10/29/24 23:12 Potassium 3.8 mmol/L (3.5-5.1) 10/29/24 18:49 Chloride 104 mmol/L (98-107) 10/29/24 18:49 Carbon Dioxide 28 mmol/L (21-32) 10/29/24 18:49 Anion Gap 9 (3-11) 10/29/24 18:49 BUN 15 mg/dl (6-23) 10/29/24 18:49 Creatinine 1.10 mg/dl (0.6-1.2) 10/29/24 18:49 Est Cr Clr Drug Dosing 60.2 ml/min 10/29/24 18:49 eGFR 56.81 10/29/24 18:49 BUN/Creatinine Ratio 13.6 (10-20) 10/29/24 18:49 Glucose 120 mg/dl (70-99(Fasting)) H 10/29/24 18:49 POC Glucose (other) 285 mg/dl (70-99) H 10/30/24 00:44 Lactate 2.7 mmol/L (0.4-2.0) H* 10/29/24 20:20 Calcium 11.2 mg/dl (8.6-10.3) H 10/29/24 18:49 Phosphorus 4.1 mg/dl (2.5-4.9) 10/29/24 18:49 Magnesium 1.7 mg/dl (1.7-2.4) 10/29/24 18:49 Total Bilirubin 0.4 mg/dl (0.2-1.0) 10/29/24 18:49 AST 22 U/L (13-39) 10/29/24 18:49 ALT 14 U/L (7-52) 10/29/24 18:49 Alkaline Phosphatase 71 U/L (34-104) 10/29/24 18:49 Total Creatine Kinase 63 U/L (26-192) 10/29/24 18:49 Troponin I High Sens < 2.3 pg/ml (0-14) 10/29/24 18:49 Total Protein 5.9 gm/dl (6.0-8.3) L 10/29/24 18:49 Albumin 3.5 gm/dl (3.4-5.0) 10/29/24 18:49 Globulin 2.4 gm/dl (2.5-4.0) L 10/29/24 18:49 Albumin/Globulin Ratio 1.5 (0.9-2) 10/29/24 18:49 Lipase 24 U/L (11-82) 10/29/24 18:49 Urine Color Yellow 10/29/24 18:50 Urine Appearance Clear (Clear) 10/29/24 18:50 Urine pH 7.0 (4.5-7.5) 10/29/24 18:50 Ur Specific [place] 1.004 (1.000-1.030) 10/29/24 18:50 Urine Protein Trace (Negative) H 10/29/24 18:50 Urine Glucose (UA) Negative (Negative) 10/29/24 18:50 Urine Ketones Negative (Negative) 10/29/24 18:50 Urine Blood Negative (Negative) 10/29/24 18:50 Urine Nitrite Negative (Negative) 10/29/24 18:50 Urine Bilirubin Negative (Negative) 10/29/24 18:50 Urine Urobilinogen Negative (Negative) 10/29/24 18:50 Ur Leukocyte Esterase Negative (Negative) 10/29/24 18:50 Urine WBC (Auto) 0-5 /hpf (0-5) 10/29/24 18:50 Urine RBC (Auto) 0-2 /hpf (0-2) 10/29/24 18:50 U Hyaline Cast (Auto) 0-2 /lpf (0-2) 10/29/24 18:50 U Epithel Cells (Auto) 0-2 /hpf (0-2) 10/29/24 18:50 Urine Bacteria (Auto) None Seen (None Seen) 10/29/24 18:50 Nasal Screen MRSA (PCR) Negative (Negative) 10/29/24 23:37 Salicylates < 3.0 mg/dl (3.0-30) L 10/29/24 18:49 Urine Opiates Screen Neg (Neg) 10/29/24 18:50 Ur Methadone, Qual Neg (Neg) 10/29/24 18:50 Urine Fentanyl Screen Neg (Neg) 10/29/24 18:50 Acetaminophen < 3 ug/ml (10-30) L 10/29/24 18:49 Urine Barbiturates Neg (Neg) 10/29/24 18:50 Ur Phencyclidine (PCP) Neg (Neg) 10/29/24 18:50 U Amphetamin/Meth Scrn Neg (Neg) 10/29/24 18:50 MDMA (Ecstasy) Screen Neg (Neg) 10/29/24 18:50 U Benzodiazepines Scrn Neg (Neg) 10/29/24 18:50 Ur Cocaine Metabolite Neg (Neg) 10/29/24 18:50 U Marijuana (THC) Screen Pos (Neg) H 10/29/24 18:50 Ethyl Alcohol mg/dL 74.8 mg/dl (<10.0) H 10/29/24 18:49 SARS-CoV-2, RNA, NAAT NEGATIVE (NEGATIVE) 10/29/24 19:[address] 10/29/24 18:21 Exam(s): CT HEAD Without Contrast EXAM: CT Head Without Intravenous Contrast CLINICAL HISTORY: Altered mental status. TECHNIQUE: Axial computed tomography images of the head/brain without intravenous contrast. CTDI is 56.32 mGy and DLP is 950.49 mGy-cm. Automated exposure control was utilized for the study. A dose lowering technique was utilized adhering to the principles of ALARA. COMPARISON: No relevant prior studies available. FINDINGS: Brain: Unremarkable. No significant white matter disease. No intracranial hemorrhage, mass-effect or midline shift. No abnormal extra axial fluid. No evidence of acute infarct. Ventricles: Unremarkable. No ventriculomegaly. Bones/joints: Unremarkable. No acute fracture. Soft tissues: Unremarkable. Sinuses: Mild mucosal thickening of the ethmoid sinuses and sphenoid sinuses. There is a small amount of fluid in the sphenoid sinuses which likely relate to patient. Mastoid air cells: Unremarkable as visualized. No mastoid effusion. IMPRESSION: No acute intracranial finding. Electronically signed by: Ellen Li MD 10/29/24 22:41 PM Chest X-Ray 10/29/24 19:20 Exam(s): XR CXR 1 VIEW EXAM: XR Chest, 1 View CLINICAL HISTORY: Central line. TECHNIQUE: Frontal view of the chest. COMPARISON: Chest radiograph 10/29/2024 FINDINGS: Lungs: Stable bilateral airspace opacities. Pleural space: Stable bilateral pleural effusions. No pneumothorax. Heart: The cardiac silhouette is stable. Mediastinum: Unremarkable. Normal mediastinal contour. Bones/joints: There are degenerative changes of the spine. No acute fracture. Tubes, lines and devices: NG tube is present with the tip overlying the stomach and the side-port overlying the distal esophagus. The remaining lines and tubes are stable. IMPRESSION: 1. An NG tube is present with the tip overlying the stomach and the side- port overlying the distal esophagus. Advancement is recommended. 2. The remaining findings are stable. Electronically signed by: Ellen Li MD 10/29/24 21:06 PM Code Status & VTE Plan Code Status Full code VTE Prophylaxis Plan VTE Prophylaxis will be ordered: Yes Critical Care Time 50 minutes PG Care Time/CCT Total # of Minutes Spent Total Time Spent with Patient: Total time spent is greater than 50% in coordination of care (as documented) at patient's floor/unit and/or counseling patient: Coding Level of Care Code 20045 INT INP/OBS CARE MIN Diagnoses Admitted to intensive care unit Z78.9 Intentional overdose T50.902A Shock R57.9 Required emergency intubation Z98.890 Suicide attempt by beta chavez overdose T44.7X2A Encounter type: initial encounter Seizure R56.9 Respiratory failure J96.01; J96.02 Chronicity: acute Respiratory failure complication: hypoxia and hypercapnia Suicide attempt by multiple drug overdose T50.2A Encounter type: initial encounter (5) Suicide attempt by beta chavez overdose Encounter type: initial encounter Qualified Code(s): T44.7X2A - Poisoning by beta-adrenoreceptor antagonists, intentional self-harm, initial encounter (7) Respiratory failure Chronicity: acute Respiratory failure complication: hypoxia and hypercapnia Qualified Code(s): J96.01 - Acute respiratory failure with hypoxia; J96.02 - Acute respiratory failure with hypercapnia (8) Suicide attempt by multiple drug overdose Encounter type: initial encounter Qualified Code(s): T50.912A - Poisoning by multiple unspecified drugs, medicaments and biological substances, intentional self-harm, initial encounter
[2024-10-29 21:27] LABS: Phosphorus 4.1 mg/dl (2.5-4.9)
--- NOTE | 2024-10-29 22:42 | CT Scan Report ---
Exam(s): CT HEAD Without Contrast EXAM: CT Head Without Intravenous Contrast CLINICAL HISTORY: Altered mental status. TECHNIQUE: Axial computed tomography images of the head/brain without intravenous contrast. CTDI is 56.32 mGy and DLP is 950.49 mGy-cm. Automated exposure control was utilized for the study. A dose lowering technique was utilized adhering to the principles of ALARA. COMPARISON: No relevant prior studies available. FINDINGS: Brain: Unremarkable. No significant white matter disease. No intracranial hemorrhage, mass-effect or midline shift. No abnormal extra axial fluid. No evidence of acute infarct. Ventricles: Unremarkable. No ventriculomegaly. Bones/joints: Unremarkable. No acute fracture. Soft tissues: Unremarkable. Sinuses: Mild mucosal thickening of the ethmoid sinuses and sphenoid sinuses. There is a small amount of fluid in the sphenoid sinuses which likely relate to patient. Mastoid air cells: Unremarkable as visualized. No mastoid effusion. IMPRESSION: No acute intracranial finding. Electronically signed by: Ellen Li MD 10/29/24 22:41 PM
[2024-10-29] MEDS ORDERED: ALBUT/IPRATROP 3MG/0.5MG NEB 3 ML VIAL NEB PRN (23:17)
[2024-10-29] MEDS ORDERED: ONDANSETRON INJ 2 MG/ML 2 ML VIAL IV PRN (23:17)
[2024-10-29 23:54] LABS: iSTAT Art Bld Gas pCO2 Correct 32 mmHg (35-46); iSTAT Art Bld Gas pH Corrected 7.614 (7.35-7.45); iSTAT Arterial Blood Gas HCO3 33 meg/L (19-24); iSTAT Arterial Blood Gas pCO2 33 mmHg (35-46); iSTAT Arterial Blood Gas pO2 55 mmHg (80-95); iSTAT Arterial Blood Gas pO2 C 51; iSTAT Carbon Dioxide 33 mmol/L (24-31); iSTAT FiO2 30 %; iSTAT Hematocrit 33 % (37-47); iSTAT Hemoglobin 11.2 g/dl (12.0-16.0); iSTAT Potassium 3.4 mmol/L (3.3-5.0); iSTAT Sample Type Arterial; iSTAT Site Art Line; iSTAT Sodium 139 mmol/L (135-144); iSTAT SpO2 95
[2024-10-30] MEDS ORDERED: ICU Protocol for HYPERglycemia SCH
[2024-10-30] MEDS: MAGNESIUM SULFATE / D5W 1 GM/100 ML BAG IV SCH (01:12)
[2024-10-30] MEDS: ENOXAPARIN INJ 40 MG/0.4 ML SYR SQ SCH (01:16)
[2024-10-30] MEDS: PANTOprazole 40 MG/10 ML SYR IV SCH (01:17)
[2024-10-30] MEDS ORDERED: CARBOHYDRATES FOR HYPOGLYCEMIA PO PRN (01:27)
[2024-10-30] MEDS ORDERED: GLUCOSE 40% GEL 15 GM TUBE PO PRN (01:27)
[2024-10-30] MEDS ORDERED: GLUCAGON FOR INJ 1 MG VIAL SQ PRN (01:27)
[2024-10-30] MEDS ORDERED: GLUCOSE 10 TAB/TUBE PO PRN (01:27)
[2024-10-30] MEDS ORDERED: DEXTROSE 50% 50 ML SYRINGE IV PRN (01:27)
[2024-10-30] MEDS: STAT IV Infusion **Titration per Protocol STA (01:28)
--- NOTE | 2024-10-30 04:02 | Billing Data ---
Date of Service October 30, 2024 Coding Level of Care Code 33125 CRITICAL CARE
[2024-10-30 04:49] LABS: Basophils # (auto) 0.04 K/uL (0.00-0.20); Basophils % (auto) 0.4 %; Hematocrit (blood only) 33.7 % (37.0-47.0); Hemoglobin 11.6 g/dl (12.0-16.0); Immature Granulocytes # (auto) 0.04 K/uL (0.01-0.20); Immature Granulocytes % (auto) 0.4 %; Lymphocytes # (auto) 1.38 K/uL (1.20-3.40); Lymphocytes % (auto) 12.2 %; Mean Corpuscular Hemoglobin 29.9 pg (25.0-34.0); Mean Corpuscular Hgb Conc 34.4 g/dL (32.0-36.0); Mean Corpuscular Volume 86.9 fL (80.0-100.0); Mean Platelet Volume 8.9 fL (9.4-12.4); Monocytes # (auto) 1.11 K/uL (0.11-0.59); Monocytes % (auto) 9.8 %; Neutrophils # (auto) 8.75 K/uL (1.40-6.50); Neutrophils % (auto) 77.2 %; Platelet Count 259 K/uL (130-400); RDW Standard Deviation 40.8 fL (36.4-46.3); Red Blood Count 3.88 M/uL (4.20-5.40); White Blood Count 11.32 K/ul (4.8-10.8)
[2024-10-30 05:04] LABS: Albumin Globulin Ratio 1.4 (0.9-2); Albumin Level 3.6 gm/dl (3.4-5.0); BUN Creatinine Ratio 19.7 (10-20); Creatinine Clr Calc Pharmacy 86.6 ml/min; Globulin 2.6 gm/dl (2.5-4.0); Magnesium 2.2 mg/dl (1.7-2.4); Potassium 3.1 mmol/L (3.5-5.1); Total Protein 6.2 gm/dl (6.0-8.3)
[2024-10-30 05:10] LABS: Troponin I High Sensitivity 2.7 pg/ml (0-14)
[2024-10-30 05:42] LABS: Partial Thromboplastin Ratio 1.1; Partial Thromboplastin Time 29 Seconds (21-31); Prothrombin Time 10.9 Seconds (9.0-12.0)
[2024-10-30] MEDS: INSULIN ASPART PER UNIT CHARGE SC SCH (06:00)
[2024-10-30] MEDS: POTASSIUM CHLORIDE / WTR 20 MEQ/100 ML PLCT IV SCH (06:01)
--- NOTE | 2024-10-30 07:30 | Hospitalist Progress Note ---
Date of Service October 30, 2024 Assessment & Plan (1) Intentional overdose: Plan: suiscide by Beta Joleen overdose (2) Shock: (3) Seizure: (4) Respiratory failure: Plan Admitted to intensive care unit/emergency intubation in the field, intentional Rx multidrug drug overdose/shock secondary to medicine with hypotension Echo, normal LV function, CT scan of head is negative continue pressor support as per icu team Urine drug screen positive for marijuana, with other testing negative Alcohol level 74.8 Salicylates negative and acetaminophen negative Initial lactate 3.1, with follow-up 2.7, and will follow serially COVID testing negative Pantoprazole 40 mg IV twice daily Zofran 4 mg IV every 6 hours as needed multiple out pt providers have ordered similar meds, med recc at [facility] will be vital Admission and Anticipated Discharge Date Admission Date: October 29, 2024 Subjective Patient arouses with loud verbal stimulation. agitated, does not follow commands Physical Exam Physical Exam: pt is ventilated has coarse breath sounds bilaterally cardiac is regular Results & Data Results & Data Vital Signs (Past 12 Hours) Vital Signs Temp Pulse Pulse Resp BP BP BP 10/30/24 06:53 59 L 16 10/30/24 06:15 99.5 F 58 L 16 10/30/24 06:00 111/76 10/30/24 05:54 99.3 F 58 L 16 10/30/24 05:06 99.3 F 57 L 16 10/30/24 04:15 99.1 F 57 L 16 10/30/24 04:00 99.1 F 57 L 16 10/30/24 04:00 10/30/24 03:39 57 L 16 10/30/24 03:18 98.6 F 57 L 16 10/30/24 03:15 150/89 H 10/30/24 03:12 98.4 F 57 L 16 10/30/24 03:00 98.4 F 57 L 16 160/94 H 10/30/24 02:45 155/92 H 10/30/24 02:45 98.2 F 56 L 16 10/30/24 02:30 98.2 F 56 L 16 10/30/24 02:18 98.1 F 56 L 16 10/30/24 02:15 147/89 H 10/30/24 02:12 98.1 F 56 L 16 10/30/24 02:00 98.1 F 56 L 16 155/91 H 10/30/24 01:57 98.1 F 56 L 16 10/30/24 01:45 147/89 H 10/30/24 01:33 10/30/24 01:30 150/93 H 10/30/24 01:30 150/93 H 10/30/24 01:27 97.7 F 56 L 16 10/30/24 01:24 97.7 F 56 L 16 10/30/24 01:15 147/89 H 10/30/24 01:09 97.5 F L 55 L 16 10/30/24 01:00 97.5 F L 55 L 16 10/30/24 00:45 97.3 F L 55 L 16 162/98 H 10/30/24 00:42 97.3 F L 55 L 16 10/30/24 00:30 164/98 H 10/30/24 00:27 97.2 F L 55 L 16 10/30/24 00:24 97.2 F L 55 L 16 10/30/24 00:17 54 L 10/30/24 00:15 168/100 H 10/30/24 00:06 97.0 F L 54 L 16 10/30/24 00:00 168/100 H 10/30/24 00:00 10/29/24 23:57 97.0 F L 54 L 16 10/29/24 23:51 96.8 F L 54 L 16 10/29/24 23:45 168/99 H 10/29/24 23:39 96.8 F L 54 L 16 10/29/24 23:32 54 L 16 10/29/24 23:30 157/100 H 10/29/24 23:27 96.8 F L 54 L 16 154/96 H 10/29/24 23:23 10/29/24 23:19 10/29/24 23:12 96.6 F L 55 L 18 10/29/24 23:00 162/97 H 10/29/24 22:56 55 L 19 10/29/24 22:50 162/98 H 10/29/24 22:50 162/98 H 10/29/24 22:46 162/104 H 10/29/24 22:33 56 L 18 10/29/24 21:48 97.0 F L 56 L 18 126/78 10/29/24 21:30 57 L 18 137/90 10/29/24 21:24 57 L 18 147/97 H 10/29/24 21:21 56 L 18 10/29/24 21:20 108/78 10/29/24 21:15 116/79 10/29/24 21:10 107/75 10/29/24 21:10 107/75 10/29/24 21:00 111/78 10/29/24 20:55 108/78 10/29/24 20:51 56 L 18 111/75 10/29/24 20:45 95/71 L 10/29/24 20:39 58 L 18 104/72 10/29/24 20:37 62 18 10/29/24 20:33 59 L 18 109/72 10/29/24 20:06 63 18 133/96 10/29/24 19:45 59 L 18 144/96 H 10/29/24 19:35 53 L 18 125/86 10/29/24 19:35 125/86 10/29/24 19:35 125/86 10/29/24 19:30 119/85 Pulse Ox O2 Del Method O2 Del Method FiO2 10/30/24 06:53 100 40 10/30/24 06:15 99 10/30/24 06:00 10/30/24 05:54 100 10/30/24 05:06 100 10/30/24 04:15 100 10/30/24 04:00 100 10/30/24 04:00 40 10/30/24 03:39 100 40 10/30/24 03:18 100 10/30/24 03:15 10/30/24 03:12 100 10/30/24 03:00 100 10/30/24 02:45 10/30/24 02:45 100 10/30/24 02:30 100 10/30/24 02:18 100 10/30/24 02:15 10/30/24 02:12 100 10/30/24 02:00 100 10/30/24 01:57 100 10/30/24 01:45 10/30/24 01:33 Mechanical Vent 10/30/24 01:30 10/30/24 01:30 10/30/24 01:27 100 10/30/24 01:24 100 10/30/24 01:15 10/30/24 01:09 100 10/30/24 01:00 100 10/30/24 00:45 100 10/30/24 00:42 100 10/30/24 00:30 10/30/24 00:27 100 10/30/24 00:24 100 10/30/24 00:17 10/30/24 00:15 10/30/24 00:06 100 10/30/24 00:00 10/30/24 00:00 50 10/29/24 23:57 100 10/29/24 23:51 100 10/29/24 23:45 10/29/24 23:39 100 10/29/24 23:32 100 50 10/29/24 23:30 10/29/24 23:27 100 Mechanical Vent 10/29/24 23:23 50 10/29/24 23:19 50 10/29/24 23:12 95 10/29/24 23:00 10/29/24 22:56 99 30 10/29/24 22:50 10/29/24 22:50 10/29/24 22:46 10/29/24 22:33 10/29/24 21:48 100 Mechanical Vent 10/29/24 21:30 10/29/24 21:24 100 10/29/24 21:21 100 10/29/24 21:20 10/29/24 21:15 10/29/24 21:10 10/29/24 21:10 10/29/24 21:00 10/29/24 20:55 10/29/24 20:51 100 10/29/24 20:45 10/29/24 20:39 100 10/29/24 20:37 99 40 10/29/24 20:33 100 10/29/24 20:06 100 10/29/24 19:45 100 10/29/24 19:35 100 10/29/24 19:35 10/29/24 19:35 10/29/24 19:30 Laboratory Results review cbc review chemistry PG Care Time/CCT Total # of Minutes Spent Total Time Spent with Patient: Total time spent is greater than 50% in coordination of care (as documented) at patient's floor/unit and/or counseling patient: Coding Level of Care Code 86337 SUB INP/OBS CARE 3/50MIN Diagnoses Intentional overdose T50.902A Shock R57.9 Seizure R56.9 Respiratory failure J96.01; J96.02 Chronicity: acute Respiratory failure complication: hypoxia and hypercapnia (4) Respiratory failure Chronicity: acute Respiratory failure complication: hypoxia and hypercapnia Qualified Code(s): J96.01 - Acute respiratory failure with hypoxia; J96.02 - Acute respiratory failure with hypercapnia
--- NOTE | 2024-10-30 07:50 | XRay Report ---
EXAM: XR chest 1V portable CLINICAL HISTORY: EVAL LINES/TUBES/LUNG HAM JTF/KAB TECHNIQUE: An X-ray image of the chest is obtained in AP projection. COMPARISON: 10/29/2024. FINDINGS: Tubes and lines: Endotracheal tube is approximately 1.3 cm above tim that needs to be repositioned at approximately 4 cm from tim. NG tube passing through the diaphragm and in situ. Pulmonary Parenchyma: Small pleural reaction in the left costophrenic recess possibility of small effusion with a small atelectatic band. Small atelectatic bands seen in the right lower zone as well. Prominent bronchovascular markings are seen with illl defined air space shadowing in right parahilar region Heart and Mediastinum: Cardiac silhouette is minimally enlarged. No mediastinal widening seen. No hilar or mediastinal lymphadenopathy seen. Bony Thorax: Bony thorax appears intact without fractures or deformities. Soft Tissues: Soft tissues overlying the chest wall are unremarkable. IMPRESSION: 1. Low-lying endotracheal tube which needs to be repositioned. 2. Small pleural reaction/small left pleural effusion with bilateral atelectatic bands. 3. Prominent bronchovascular markings are seen with illl defined air space shadowing in right parahilar region. 4. Comparing the previous x-ray dated 10/29/20 24 endotracheal tube was low-lying in the previous x-ray and and still low-lying which needs to be repositioned. Rest of findings are unchanged. Electronically signed by Stacy Tian 10-30-2024 07:50 AM
[2024-10-30] MEDS: POTASSIUM CHLORIDE 20 MEQ/15 ML UDC PO STA (07:58)
[2024-10-30] MEDS ORDERED: SODIUM BICARB 8.4% INJ 50 MEQ/50 ML SYR IV ONE (08:10)
[2024-10-30] MEDS ORDERED: EPINEPHrine HCL INJ 10 MG/10 ML VIAL IV ONE (08:10)
[2024-10-30] MEDS ORDERED: SODIUM CHLORIDE 0.9% 10ML FLUSH IV ONE (08:10)
[2024-10-30] MEDS ORDERED: CALCIUM CHLORIDE 10% 10 ML SYR IV ONE (08:10)
[2024-10-30] MEDS: fentaNYL citrate PF 100 MCG/2 ML VIAL IV STA (09:05)
--- NOTE | 2024-10-30 09:27 | Critical Care Progress Note ---
Date of Service October 30, 2024 Assessment & Plan (1) Suicide attempt by beta chavez overdose: (2) Seizure: (3) Respiratory failure: (4) Required emergency intubation: (5) Shock: (6) Intentional overdose: Plan Reason Critically Ill: 64 YOF presented unresponsive requiring intubation in the field, seizure x2, bradycardic and hypotensive. Found with suicide note and multiple empty bottles around the patient, most concerning at this time would be the empty bottle of propranolol found in conjunction with her bradycardia and hypotension. Neuro - Intubated and sedated, encephalopathy, Seizure, concern for anoxic brain injury [facility] ICU: JOANNE - Found unresponsive at home requiring intubation in setting of suicide attempt with multiple agents- unknown down time at home -Patient's neuroexam has been improving Possible seizure-like activity -EEG pending however I suspect this is likely a toxic/metabolic encephalopathy Acute alcohol intoxication Polysubstance abuse: Marijuana positive Intentional drug overdose: Lamotrigine level pending -Poison control recommendations included alkalinization -Being 12 hours without clinical effect and no QT prolongation will allow patient to normalize pH - Will require mental health evaluation. Cardiac - shock in setting of likely bb overdose, -Decreasing vasoactive requirements Respiratory - emergent intubation in the field secondary to overdose attempt - ETT placement verified with CXR appropriate - oxygenating well on minimal vent settings -Not spontaneously breathing however patient is alkalinized will allow patient to normalize GI - NO acute needs - OGT LIWS - NPO RENAL/LYTES - - replete electrolytes - Parra catheter to gravity ENDO - ICU hyperglycemic protocol HEME - NO acute needs ID - No concern at this time for infective process LINES/IV ACCESS - CVL, [place], Parra, OGT, ETT Continue use of these lines DVT PROPHYLAXIS - SCDS, Lovenox DISPO - ICU while intubated and sedated and requiring vasopressor agents Family: Son did call in around 2300 and was updated Admission and Anticipated Discharge Date Admission Date: October 29, 2024 Supervising Physician Co-Signing Physician Notes I have personally spent 60 minutes of critical care time in the direct management of this patient. This is a life/limb threatening event. This includes time spent evaluating patient, direct bedside care, chart review, placing orders, interpretation of diagnostic studies, discussion with consultants, patient, and/or family members regarding treatment decisions, as well as other required patient management activities. This time is exclusive of all separately billable procedures, and teaching time and separate from and in addition to any other critical care service time. Subjective Patient arouses with loud verbal stimulation however not following basic com mands Physical Exam Physical Exam: General: Sedated. nontoxic. Arouses with loud auditory stimulation Skin: Warm, dry, Head: Atraumatic Ears, nose, mouth and throat: airway obscured by endotracheal tube Cardiovascular: Normal peripheral perfusion Respiratory: Ventilator settings reviewed Gastrointestinal: Non distended Musculoskeletal: No deformity Results & Data Results & Data Vital Signs (Past 12 Hours) Vital Signs Temp Pulse Pulse Resp BP BP BP 10/30/24 06:53 59 L 16 10/30/24 06:15 37.5 C 58 L 16 10/30/24 06:00 111/76 10/30/24 05:54 37.4 C 58 L 16 10/30/24 05:06 37.4 C 57 L 16 10/30/24 04:15 37.3 C 57 L 16 10/30/24 04:00 37.3 C 57 L 16 10/30/24 04:00 10/30/24 03:39 57 L 16 10/30/24 03:18 37.0 C 57 L 16 10/30/24 03:15 150/89 H 10/30/24 03:12 36.9 C 57 L 16 10/30/24 03:00 36.9 C 57 L 16 160/94 H 10/30/24 02:45 155/92 H 10/30/24 02:45 36.8 C 56 L 16 10/30/24 02:30 36.8 C 56 L 16 10/30/24 02:18 36.7 C 56 L 16 10/30/24 02:15 147/89 H 10/30/24 02:12 36.7 C 56 L 16 10/30/24 02:00 36.7 C 56 L 16 155/91 H 10/30/24 01:57 36.7 C 56 L 16 10/30/24 01:45 147/89 H 10/30/24 01:33 10/30/24 01:30 150/93 H 10/30/24 01:30 150/93 H 10/30/24 01:27 36.5 C 56 L 16 10/30/24 01:24 36.5 C 56 L 16 10/30/24 01:15 147/89 H 10/30/24 01:09 36.4 C L 55 L 16 10/30/24 01:00 36.4 C L 55 L 16 10/30/24 00:45 36.3 C L 55 L 16 162/98 H 10/30/24 00:42 36.3 C L 55 L 16 10/30/24 00:30 164/98 H 10/30/24 00:27 36.2 C L 55 L 16 10/30/24 00:24 36.2 C L 55 L 16 10/30/24 00:17 54 L 10/30/24 00:15 168/100 H 10/30/24 00:06 36.1 C L 54 L 16 10/30/24 00:00 168/100 H 10/30/24 00:00 10/29/24 23:57 36.1 C L 54 L 16 10/29/24 23:51 36.0 C L 54 L 16 10/29/24 23:45 168/99 H 10/29/24 23:39 36.0 C L 54 L 16 10/29/24 23:32 54 L 16 10/29/24 23:30 157/100 H 10/29/24 23:27 36.0 C L 54 L 16 154/96 H 10/29/24 23:23 10/29/24 23:19 10/29/24 23:12 35.9 C L 55 L 18 10/29/24 23:00 162/97 H 10/29/24 22:56 55 L 19 10/29/24 22:50 162/98 H 10/29/24 22:50 162/98 H 10/29/24 22:46 162/104 H 10/29/24 22:33 56 L 18 10/29/24 21:48 36.1 C L 56 L 18 126/78 10/29/24 21:30 57 L 18 137/90 10/29/24 21:24 57 L 18 147/97 H Pulse Ox O2 Del Method O2 Del Method FiO2 10/30/24 06:53 100 40 10/30/24 06:15 99 10/30/24 06:00 10/30/24 05:54 100 10/30/24 05:06 100 10/30/24 04:15 100 10/30/24 04:00 100 10/30/24 04:00 40 10/30/24 03:39 100 40 10/30/24 03:18 100 10/30/24 03:15 10/30/24 03:12 100 10/30/24 03:00 100 10/30/24 02:45 10/30/24 02:45 100 10/30/24 02:30 100 10/30/24 02:18 100 10/30/24 02:15 10/30/24 02:12 100 10/30/24 02:00 100 10/30/24 01:57 100 10/30/24 01:45 10/30/24 01:33 Mechanical Vent 10/30/24 01:30 10/30/24 01:30 10/30/24 01:27 100 10/30/24 01:24 100 10/30/24 01:15 10/30/24 01:09 100 10/30/24 01:00 100 10/30/24 00:45 100 10/30/24 00:42 100 10/30/24 00:30 10/30/24 00:27 100 10/30/24 00:24 100 10/30/24 00:17 10/30/24 00:15 10/30/24 00:06 100 10/30/24 00:00 10/30/24 00:00 50 10/29/24 23:57 100 10/29/24 23:51 100 10/29/24 23:45 10/29/24 23:39 100 10/29/24 23:32 100 50 10/29/24 23:30 10/29/24 23:27 100 Mechanical Vent 10/29/24 23:23 50 10/29/24 23:19 50 10/29/24 23:12 95 10/29/24 23:00 10/29/24 22:56 99 30 10/29/24 22:50 10/29/24 22:50 10/29/24 22:46 10/29/24 22:33 10/29/24 21:48 100 Mechanical Vent 10/29/24 21:30 10/29/24 21:24 100 Critical Care Results & Data Vital Signs (Past 12 Hours) Vital Signs Temp Pulse Pulse Resp BP BP BP 10/30/24 06:53 59 L 16 10/30/24 06:15 37.5 C 58 L 16 10/30/24 06:00 111/76 10/30/24 05:54 37.4 C 58 L 16 10/30/24 05:06 37.4 C 57 L 16 10/30/24 04:15 37.3 C 57 L 16 10/30/24 04:00 37.3 C 57 L 16 10/30/24 04:00 10/30/24 03:39 57 L 16 10/30/24 03:18 37.0 C 57 L 16 10/30/24 03:15 150/89 H 10/30/24 03:12 36.9 C 57 L 16 10/30/24 03:00 36.9 C 57 L 16 160/94 H 10/30/24 02:45 155/92 H 10/30/24 02:45 36.8 C 56 L 16 10/30/24 02:30 36.8 C 56 L 16 10/30/24 02:18 36.7 C 56 L 16 10/30/24 02:15 147/89 H 10/30/24 02:12 36.7 C 56 L 16 10/30/24 02:00 36.7 C 56 L 16 155/91 H 10/30/24 01:57 36.7 C 56 L 16 10/30/24 01:45 147/89 H 10/30/24 01:33 10/30/24 01:30 150/93 H 10/30/24 01:30 150/93 H 10/30/24 01:27 36.5 C 56 L 16 10/30/24 01:24 36.5 C 56 L 16 10/30/24 01:15 147/89 H 10/30/24 01:09 36.4 C L 55 L 16 10/30/24 01:00 36.4 C L 55 L 16 10/30/24 00:45 36.3 C L 55 L 16 162/98 H 10/30/24 00:42 36.3 C L 55 L 16 10/30/24 00:30 164/98 H 10/30/24 00:27 36.2 C L 55 L 16 10/30/24 00:24 36.2 C L 55 L 16 10/30/24 00:17 54 L 10/30/24 00:15 168/100 H 10/30/24 00:06 36.1 C L 54 L 16 10/30/24 00:00 168/100 H 10/30/24 00:00 10/29/24 23:57 36.1 C L 54 L 16 10/29/24 23:51 36.0 C L 54 L 16 10/29/24 23:45 168/99 H 10/29/24 23:39 36.0 C L 54 L 16 10/29/24 23:32 54 L 16 10/29/24 23:30 157/100 H 10/29/24 23:27 36.0 C L 54 L 16 154/96 H 10/29/24 23:23 10/29/24 23:19 10/29/24 23:12 35.9 C L 55 L 18 10/29/24 23:00 162/97 H 10/29/24 22:56 55 L 19 10/29/24 22:50 162/98 H 10/29/24 22:50 162/98 H 10/29/24 22:46 162/104 H 10/29/24 22:33 56 L 18 10/29/24 21:48 36.1 C L 56 L 18 126/78 10/29/24 21:30 57 L 18 137/90 10/29/24 21:24 57 L 18 147/97 H Pulse Ox O2 Del Method O2 Del Method FiO2 10/30/24 06:53 100 40 10/30/24 06:15 99 10/30/24 06:00 10/30/24 05:54 100 10/30/24 05:06 100 10/30/24 04:15 100 10/30/24 04:00 100 10/30/24 04:00 40 10/30/24 03:39 100 40 10/30/24 03:18 100 10/30/24 03:15 10/30/24 03:12 100 10/30/24 03:00 100 10/30/24 02:45 10/30/24 02:45 100 10/30/24 02:30 100 10/30/24 02:18 100 10/30/24 02:15 10/30/24 02:12 100 10/30/24 02:00 100 10/30/24 01:57 100 10/30/24 01:45 10/30/24 01:33 Mechanical Vent 10/30/24 01:30 10/30/24 01:30 10/30/24 01:27 100 10/30/24 01:24 100 10/30/24 01:15 10/30/24 01:09 100 10/30/24 01:00 100 10/30/24 00:45 100 10/30/24 00:42 100 10/30/24 00:30 10/30/24 00:27 100 10/30/24 00:24 100 10/30/24 00:17 10/30/24 00:15 10/30/24 00:06 100 10/30/24 00:00 10/30/24 00:00 50 10/29/24 23:57 100 10/29/24 23:51 100 10/29/24 23:45 10/29/24 23:39 100 10/29/24 23:32 100 50 10/29/24 23:30 10/29/24 23:27 100 Mechanical Vent 10/29/24 23:23 50 10/29/24 23:19 50 10/29/24 23:12 95 10/29/24 23:00 10/29/24 22:56 99 30 10/29/24 22:50 10/29/24 22:50 10/29/24 22:46 10/29/24 22:33 10/29/24 21:48 100 Mechanical Vent 10/29/24 21:30 10/29/24 21:24 100 Lab & Micro Results (Past 24 Hours) RBC 3.88 M/uL (4.20-5.40) L 10/30/24 WBC 11.32 K/ul (4.8-10.8) H 10/30/24 Hgb 11.6 g/dl (12.0-16.0) L 10/30/24 Hct 33.7 % (37.0-47.0) L 10/30/24 MCV 86.9 fL (80.0-100.0) 10/30/24 MCH 29.9 pg (25.0-34.0) 10/30/24 MCHC 34.4 g/dL (32.0-36.0) 10/30/24 RDW Standard Deviation 40.8 fL (36.4-46.3) 10/30/24 RDW Coefficient of Variation 13.0 % (11.5-14.5) 10/30/24 Plt Count 259 K/uL (130-400) 10/30/24 MPV 8.9 fL (9.4-12.4) L 10/30/24 Neutrophils (%) (Auto) 77.2 % 10/30/24 Lymphocytes (%) (Auto) 12.2 % 10/30/24 Monocytes # (Auto) 1.11 K/uL (0.11-0.59) H 10/30/24 Eosinophils # (Auto) 0.00 K/uL (0.00-0.50) 10/30/24 Immature Granulocyte % (Auto) 0.4 % 10/30/24 Neutrophils # (Auto) 8.75 K/uL (1.40-6.50) H 10/30/24 Lymphocytes # (Auto) 1.38 K/uL (1.20-3.40) 10/30/24 Monocytes # (Auto) 1.11 K/uL (0.11-0.59) H 10/30/24 Eosinophils # (Auto) 0.00 K/uL (0.00-0.50) 10/30/24 Basophils # (Auto) 0.04 K/uL (0.00-0.20) 10/30/24 Immature Granulocyte # (Auto) 0.04 K/uL (0.01-0.20) 4 Na 139 mmol/L (136-145) 10/30/24 K 3.1 mmol/L (3.5-5.1) L 10/30/24 Cl 97 mmol/L (98-107) L 10/30/24 CO2 33 mmol/L (21-32) H 10/30/24 Anion Gap 9 (3-11) 10/30/24 BUN 15 mg/dl (6-23) 10/30/24 Creatinine 0.76 mg/dl (0.6-1.2) 10/30/24 BUN/Creatinine Ratio 19.7 (10-20) 10/30/24 Glu 194 mg/dl (70-99(Fasting)) H 10/30/24 Ca 9.0 mg/dl (8.6-10.3) 10/30/24 Phosphorus Level 4.1 mg/dl (2.5-4.9) 10/29/24 Total Bilirubin 1.0 mg/dl (0.2-1.0) 10/30/24 AST 27 U/L (13-39) 10/30/24 ALT 20 U/L (7-52) 10/30/24 Alkaline Phosphatase 74 U/L (34-104) 10/30/24 TP 6.2 gm/dl (6.0-8.3) 10/30/24 Albumin 3.6 gm/dl (3.4-5.0) 10/30/24 Globulin 2.6 gm/dl (2.5-4.0) 10/30/24 Albumin/Globulin Ratio 1.4 (0.9-2) 10/30/24 Mg 2.2 mg/dl (1.7-2.4) 10/30/24 04:17 Calcium Level 9.0 mg/dl (8.6-10.3) 10/30/24 04:17 Prothromb Time International Ratio 1.0 (0.9-1.1) 10/30/24 04:1 7 Venous Blood pH 7.46 (7.36-7.41) H 10/30/24 08:51 Venous Blood Partial Pressure CO2 46 mmHg (38-50) 10/29/24 20:2 0 Venous Blood Partial Pressure O2 41 mmHg 10/29/24 20:20 Venous Blood HCO3 26 mmol/L 10/29/24 20:20 Venous Blood Base Excess 0.1 mEq/L 10/29/24 20:20 Venous Blood Oxygen Saturation 72.8 % 10/29/24 20:20 Avery Test NA 10/29/24 23:12 Diagnostic Findings (Past 24 Hours) Chest X-Ray 10/29/24 18:21 EXAM: Radiograph of the Chest 1 View INDICATION: Intubation. TECHNIQUE: Frontal view of the chest. Image obtained at 6:47 PM. COMPARISON: 08/27/2021 FINDINGS: Lungs and pleural spaces: Shallow inspiration. Patchy right perihilar airspace disease and central airway thickening noted. No pleural effusion or pneumothorax. Heart: Shape and configuration within normal limits allowing for technique. Mediastinum: Normal contour. Bones/joints: No fracture, erosion or dislocation. Soft tissues: No abnormality noted. No radiopaque foreign body noted. Tubes, lines and devices: The endotracheal tube terminates 1.8 cm above the tim. Upper abdomen: No abnormality noted. IMPRESSION: 1. Patchy right perihilar and basilar atelectasis or pneumonia and minimal underlying bronchitis probable. 2. Lines and tubes as above. ACT 112: Negative or not required by law. Electronically signed by Estella Braun 10-29-2024 6:[address] 10/29/24 18:21 Exam(s): CT HEAD Without Contrast EXAM: CT Head Without Intravenous Contrast CLINICAL HISTORY: Altered mental status. TECHNIQUE: Axial computed tomography images of the head/brain without intravenous contrast. CTDI is 56.32 mGy and DLP is 950.49 mGy-cm. Automated exposure control was utilized for the study. A dose lowering technique was utilized adhering to the principles of ALARA. COMPARISON: No relevant prior studies available. FINDINGS: Brain: Unremarkable. No significant white matter disease. No intracranial hemorrhage, mass-effect or midline shift. No abnormal extra axial fluid. No evidence of acute infarct. Ventricles: Unremarkable. No ventriculomegaly. Bones/joints: Unremarkable. No acute fracture. Soft tissues: Unremarkable. Sinuses: Mild mucosal thickening of the ethmoid sinuses and sphenoid sinuses. There is a small amount of fluid in the sphenoid sinuses which likely relate to patient. Mastoid air cells: Unremarkable as visualized. No mastoid effusion. IMPRESSION: No acute intracranial finding. Electronically signed by: Ellen Li MD 10/29/24 22:41 PM Chest X-Ray 10/29/24 19:20 Exam(s): XR CXR 1 VIEW EXAM: XR Chest, 1 View CLINICAL HISTORY: Central line. TECHNIQUE: Frontal view of the chest. COMPARISON: Chest radiograph 10/29/2024 FINDINGS: Lungs: Stable bilateral airspace opacities. Pleural space: Stable bilateral pleural effusions. No pneumothorax. Heart: The cardiac silhouette is stable. Mediastinum: Unremarkable. Normal mediastinal contour. Bones/joints: There are degenerative changes of the spine. No acute fracture. Tubes, lines and devices: NG tube is present with the tip overlying the stomach and the side-port overlying the distal esophagus. The remaining lines and tubes are stable. IMPRESSION: 1. An NG tube is present with the tip overlying the stomach and the side- port overlying the distal esophagus. Advancement is recommended. 2. The remaining findings are stable. Electronically signed by: Ellen Li MD 10/29/24 21:06 PM Chest X-Ray 10/30/24 06:00 EXAM: XR chest 1V portable CLINICAL HISTORY: EVAL LINES/TUBES/LUNG HAM JTF/KAB TECHNIQUE: An X-ray image of the chest is obtained in AP projection. COMPARISON: 10/29/2024. FINDINGS: Tubes and lines: Endotracheal tube is approximately 1.3 cm above tim that needs to be repositioned at approximately 4 cm from tim. NG tube passing through the diaphragm and in situ. Pulmonary Parenchyma: Small pleural reaction in the left costophrenic recess possibility of small effusion with a small atelectatic band. Small atelectatic bands seen in the right lower zone as well. Prominent bronchovascular markings are seen with illl defined air space shadowing in right parahilar region Heart and Mediastinum: Cardiac silhouette is minimally enlarged. No mediastinal widening seen. No hilar or mediastinal lymphadenopathy seen. Bony Thorax: Bony thorax appears intact without fractures or deformities. Soft Tissues: Soft tissues overlying the chest wall are unremarkable. IMPRESSION: 1. Low-lying endotracheal tube which needs to be repositioned. 2. Small pleural reaction/small left pleural effusion with bilateral atelectatic bands. 3. Prominent bronchovascular markings are seen with illl defined air space shadowing in right parahilar region. 4. Comparing the previous x-ray dated 10/29/20 endotracheal tube was low-lying in the previous x-ray and and still low-lying which needs to be repositioned. Rest of findings are unchanged. Electronically signed by Stacy Tian 10-30-2024 07:50 AM I & O Totals 24 Hours 10/29/24 10/30/24 10/31/24 06:59 06:59 06:59 Intake Total 2739.211 / 2739.211 1342.334 / 1342.334 Output Total 750 / 750 Balance 1989.211 / 5335.890 3199.334 / 1342.334 Cumulative 10/29/24 18:05 thru 10/30/24 07:58 Intake Total 4081.545 Output Total 750 Balance 3331.545 RT Ventilator Mngmt (Last Documented) Ventilator Ordered Settings Ventilator Support Mode Assist Control 10/30/24 06:53 Respiratory Rate 16 10/30/24 06:53 Ventilator Tidal Volume 420 10/30/24 06:53 Setting Minute Ventilation 6.7 10/30/24 06:53 Positive End Expiratory 5 10/30/24 06:53 Pressure Fraction of Inspired Oxygen 40 10/30/24 06:53 Machine Comment titrated to 40% 10/30/24 03:39 Ventilator - PT Measurements Respiratory Rate 16 Exhaled Tidal Volume 420 Minute Ventilation 6.7 Peak Inspiratory Airway 20 Pressure Plateau Pressure 16 Respiratory Cycle Inspiratory: 1:3.7 Expiratory Ratio Inspiratory Phase Time 0.8 End-Tidal CO2 33 Static Lung Compliance 38.18 Dynamic Lung Compliance 28.00 Normal Static Lung Compliance 47.00 Patient Measurements Comment vent changes per abg Coding Level of Care Code 78604 CRITICAL CARE 1ST 30-74M Diagnoses Suicide attempt by beta chavez overdose T44.7X2A Encounter type: initial encounter Seizure R56.9 Respiratory failure J96.01; J96.02 Chronicity: acute Respiratory failure complication: hypoxia and hypercapnia Required emergency intubation Z98.890 Shock R57.9 Intentional overdose T50.902A (1) Suicide attempt by beta chavez overdose Encounter type: initial encounter Qualified Code(s): T44.7X2A - Poisoning by beta-adrenoreceptor antagonists, intentional self-harm, initial encounter (3) Respiratory failure Chronicity: acute Respiratory failure complication: hypoxia and hypercapnia Qualified Code(s): J96.01 - Acute respiratory failure with hypoxia; J96.02 - Acute respiratory failure with hypercapnia
[2024-10-30] MEDS: fentaNYL citrate PF 100 MCG/2 ML VIAL ONE (10:26)
--- NOTE | 2024-10-30 11:02 | XCELERA ---
[id number] \\[id number]
--- NOTE | 2024-10-30 11:30 | Electrocardiogram Report ---
Test Reason : Blood Pressure : */* mmHG Vent. Rate : 55 BPM Atrial Rate : 55 BPM P-R Int : 166 ms QRS Dur : 112 ms QT Int : 496 ms P-R-T Axes : 50 80 67 degrees QTcB Int : 474 ms Sinus bradycardia with Premature atrial complexes Otherwise normal ECG When compared with ECG of 02-Jul-2023 19:04, Premature atrial complexes are now Present Confirmed by Chucky Oro ([id number]) on 10/30/2024 11:29:59 AM Referred By: REFERRED SELF Confirmed By: Chucky Oro
--- NOTE | 2024-10-30 11:32 | Electrocardiogram Report ---
Test Reason : Blood Pressure : */* mmHG Vent. Rate : 57 BPM Atrial Rate : 57 BPM P-R Int : 156 ms QRS Dur : 104 ms QT Int : 444 ms P-R-T Axes : 48 62 64 degrees QTcB Int : 432 ms Sinus bradycardia Otherwise normal ECG When compared with ECG of 30-Oct-2024 00:35, (unconfirmed) No significant change was found Confirmed by Chucky Oro ([id number]) on 10/30/2024 11:32:31 AM Referred By: REFERRED SELF Confirmed By: Chucky Oro
--- NOTE | 2024-10-30 11:36 | Electrocardiogram Report ---
Test Reason : Blood Pressure : */* mmHG Vent. Rate : 55 BPM Atrial Rate : 55 BPM P-R Int : 160 ms QRS Dur : 108 ms QT Int : 480 ms P-R-T Axes : 47 64 59 degrees QTcB Int : 459 ms Sinus bradycardia Otherwise normal ECG When compared with ECG of 29-Oct-2024 18:32, (unconfirmed) Premature atrial complexes are no longer Present Confirmed by Chucky Oro ([id number]) on 10/30/2024 11:36:17 AM Referred By: REFERRED SELF Confirmed By: Chucky Oro
--- NOTE | 2024-10-30 12:34 | Electroencephalogram ---
EEG Procedure Note Date of Service October 30, 2024 Start / End Times Start Time: 1150 End Time: 1210 Referring Physician KACEY Ballard History 64 year old with intentional overdose (propranolol, lamotrigine and Seroquel) Home Medication List Medication Instructions Recorded Confirmed Type folic acid 1 mg tablet 1 mg PO DAILY 09/27/24 09/27/24 History gabapentin 400 mg capsule 400 mg PO TID 09/27/24 09/27/24 History lamotrigine 25 mg tablet 25 mg PO DAILY 09/27/24 09/27/24 History magnesium oxide 400 mg (241.3 mg 400 mg PO DAILY 09/27/24 09/27/24 History magnesium) tablet meloxicam 15 mg tablet 15 mg PO DAILY 09/27/24 09/27/24 History pantoprazole 40 mg tablet,delayed 40 mg PO DAILY 09/27/24 09/27/24 History release paroxetine HCl 40 mg tablet 40 mg PO DAILY 09/27/24 09/27/24 History riboflavin (vitamin B2) 100 mg 100 mg PO DAILY 09/27/24 09/27/24 History tablet sumatriptan succinate 25 mg tablet See Rx Instructions PO .COMPLEX 09/27/24 09/27/24 History Inpatient Medication List Enoxaparin Sodium (Enoxaparin Inj 40 Mg/0.4 Ml Syr) 40 mg SQ PM LALO Stop: 11/28/24 23:16 Last Admin: 10/30/24 01:16 Dose: 40 mg Documented By: TMG Epinephrine HCl () 4 mg in 254 mls @ 7.186 mls/hr IV .Q24H LALO; Protocol Stop: 11/28/24 18:44 Last Titration: 10/30/24 10:29 Dose: 0.06 mcg/kg/min, 21.6 mls/hr Documented By: AMB Co-signed By: REYES Titration: 10/30/24 06:54 Dose: 0.04 mcg/kg/min, 14.4 mls/hr Documented By: TMG Co-signed By: AMB Titration: 10/30/24 06:01 Dose: 0.06 mcg/kg/min, 21.6 mls/hr Documented By: TMG Co-signed By: ESG Titration: 10/30/24 04:00 Dose: 0.08 mcg/kg/min, 28.7 mls/hr Documented By: TMG Co-signed By: ESG Titration: 10/30/24 03:12 Dose: 0.1 mcg/kg/min, 35.9 mls/hr Documented By: TMG Co-signed By: ESG Admin: 10/30/24 01:12 Dose: 0.12 mcg/kg/min, 43.1 mls/hr Documented By: TMG Co-signed By: CHIQUIS Titration: 10/29/24 23:56 Dose: Infused Documented By: TMG Co-signed By: ESG Titration: 10/29/24 22:30 Dose: Infused Documented By: TMG Co-signed By: ESG Titration: 10/29/24 21:00 Dose: 0.25 mcg/kg/min, 89.8 mls/hr Documented By: CARLTONK Co-signed By: JW Titration: 10/29/24 20:20 Dose: 0.2 mcg/kg/min, 71.9 mls/hr Documented By: PAOLA Co-signed By: LLUVIA Titration: 10/29/24 19:10 Dose: 0.3 mcg/kg/min, 107.8 mls/hr Documented By: BMK Co-signed By: PEYTONW Titration: 10/29/24 18:56 Dose: 0.03 mcg/kg/min, 10.8 mls/hr Documented By: PAOLA Co-signed By: CHIQUIS Admin: 10/29/24 18:49 Dose: 0.02 mcg/kg/min, 7.2 mls/hr Documented By: PAOLA Co-signed By: CHIQUIS Midazolam HCl (Versed) 125 mg in 250 mls @ 0 mls/hr IV .Q0M PRN; Protocol PRN Reason: Sedation Stop: 11/28/24 19:21 Last Titration: 10/30/24 10:29 Dose: 2 mg/hr, 4 mls/hr Documented By: AMB Co-signed By: AJB Titration: 10/30/24 07:04 Dose: 0 mg/hr, 0 mls/hr Documented By: TMG Co-signed By: AMB Titration: 10/30/24 06:54 Dose: 2 mg/hr, 4 mls/hr Documented By: TMG Co-signed By: AMB Admin: 10/29/24 20:04 Dose: 2 mg/hr, 4 mls/hr Documented By: PAOLA Co-signed By: CHIQUIS Pantoprazole Sodium (Protonix) 40 mg in 10 mls @ 5 mls/min IV BID LALO Stop: 11/28/24 23:16 Last Admin: 10/30/24 10:27 Dose: 5 mls/min Documented By: Admin: 10/30/24 01:17 Dose: 5 mls/min Documented By: TMG Insulin Aspart (Insulin Aspart Per Unit Charge) 0 units SC Q6 LALO Stop: 11/29/24 05:59 Last Admin: 10/30/24 12:24 Dose: Not Given Documented By: Admin: 10/30/24 06:00 Dose: 2 units Documented By: ALBERTOG Co-signed By: SB Discontinued Medications Fentanyl Citrate (Fentanyl Citrate Pf 100 Mcg/2 Ml Vial) Confirm Administered Dose 100 mcg .ROUTE .STK-MED ONE Stop: 10/30/24 09:06 Last Admin: 10/30/24 10:26 Dose: Not Given Documented By: NICK Fentanyl Citrate (Fentanyl Citrate Pf 100 Mcg/2 Ml Vial) 100 mcg IV NOW STA Stop: 10/30/24 09:30 Last Admin: 10/30/24 09:05 Dose: 100 mcg Documented By: NICK Sodium Chloride (Nss) 1,000 mls @ 999 mls/hr IV .Q1H1M ONE Stop: 10/29/24 19:37 Last Infusion: 10/29/24 20:30 Dose: Infused Documented By: Admin: 10/29/24 19:03 Dose: 999 mls/hr Documented By: ASHLEYK Glucagon 5 mg/ Syringe 5 mls @ 1 mls/min IV NOW ONE Stop: 10/29/24 18:55 Last Admin: 10/29/24 19:38 Dose: 1 mls/min Documented By: PAOLA Sodium Bicarbonate 150 meq/ (Dextrose) 1,150 mls @ 175 mls/hr IV .Q6H35M LALO Stop: 10/30/24 18:59 Last Infusion: 10/30/24 10:29 Dose: Infused Documented By: Admin: 10/30/24 08:12 Dose: 175 mls/hr Documented By: Infusion: 10/30/24 07:46 Dose: Infused Documented By: Admin: 10/30/24 01:11 Dose: 175 mls/hr Documented By: Infusion: 10/30/24 00:54 Dose: Infused Documented By: Infusion: 10/29/24 23:55 Dose: 175 mls/hr Documented By: Infusion: 10/29/24 21:15 Dose: 250 mls/hr Documented By: Admin: 10/29/24 19:10 Dose: 150 mls/hr Documented By: TNK Magnesium Sulfate/Dextrose (Magnesium Sulfate / D5w) 1 gm in 100 mls @ 50 mls/hr IV Q2H LALO Stop: 10/30/24 04:59 Last Infusion: 10/30/24 07:58 Dose: Infused Documented By: Admin: 10/30/24 03:12 Dose: 50 mls/hr Documented By: Infusion: 10/30/24 03:12 Dose: Infused Documented By: Admin: 10/30/24 01:12 Dose: 50 mls/hr Documented By: TMG Potassium Chloride (K Raymon / Wtr) 20 meq in 100 mls @ 50 mls/hr IV Q2H LALO Stop: 10/30/24 11:59 Last Infusion: 10/30/24 11:44 Dose: Infused Documented By: AMB Co-signed By: REYES Admin: 10/30/24 09:26 Dose: 50 mls/hr Documented By: AMB Co-signed By: ROLANDA Infusion: 10/30/24 09:26 Dose: Infused Documented By: AMB Co-signed By: ROLANDA Admin: 10/30/24 07:51 Dose: 50 mls/hr Documented By: AMB Co-signed By: OZIEL Infusion: 10/30/24 07:51 Dose: Infused Documented By: AMB Co-signed By: OZIEL Admin: 10/30/24 06:01 Dose: 50 mls/hr Documented By: TMG Co-signed By: FELICIA Midazolam HCl (Midazolam Hcl 5 Mg/Ml 2ml Vial) 5 mg IV NOW STA Stop: 10/29/24 18:33 Last Admin: 10/29/24 18:35 Dose: 5 mg Documented By: ANDREW Dowlinganeous (Rapid Sequence Induction Bag) Confirm Administered Dose 1 each N/A .STK-MED ONE Stop: 10/29/24 18:33 Last Admin: 10/29/24 19:03 Dose: 1 each Documented By: TNK Miscellaneous (Stat Iv Infusion Titration Per Protocol) 1 each N/A NOW STA Stop: 10/29/24 18:38 Last Admin: 10/29/24 19:03 Dose: 1 each Documented By: ANDREW Miscellaneous (Stat Iv Infusion Titration Per Protocol) 1 each N/A NOW STA Stop: 10/29/24 19:23 Last Admin: 10/30/24 01:28 Dose: Not Given Documented By: TMG Potassium Chloride (Potassium Chloride 20 Meq/15 Ml Udc) 60 meq PO NOW STA Stop: 10/30/24 05:14 Last Admin: 10/30/24 07:58 Dose: Not Given Documented By: AMB Sodium Bicarbonate (Sodium Bicarb 8.4% Inj 50 Meq/50 Ml Syr) 50 meq IV NOW STA Stop: 10/29/24 18:38 Last Admin: 10/29/24 18:43 Dose: 50 meq Documented By: TNK Sodium Bicarbonate (Sodium Bicarb 8.4% Inj 50 Meq/50 Ml Syr) 100 meq IV NOW STA Stop: 10/29/24 21:17 Last Admin: 10/29/24 21:20 Dose: 100 meq Documented By: BMK Description This is a 21 electrode EEG with a single channel dedicated to limited EKG. The electrodes were placed in accordance with the International 10-20 system. Interpretation The predominant background activity consists of very irregular 4-5 Hz activity, of up to 40 mV in amplitude,seen symmetrically distributed throughout the head regions bilaterally. This activity has little attenuation with eye-opening and other alerting procedures. Superimposed over the background activity was very low amplitude fast activity seen in all leads, waxing and waning throughout the entire recording. Photic stimulation was performed and elicited no change in the background activity and no abnormal responses were seen. Hyperventilation was not performed. A mild to moderate amount of muscle and movement artifact activity contaminated the recording and did not hinder interpretation to any significant degree.There was evidence for muscle artifact and the patient had sontaneous eye opening and limb movement , all without changes in the background. Throughout the recording, no focal abnormalities or potentially epileptogenic discharges were seen. In summary, this EEG was abnormal, showing moderate general slowing of rhythms in general No focal abnormalities or potentially epileptogenic discharges were seen. Clinical Correlation The abscence of potentially epileptogenic activity does not exclude a seizure disorder, since interictally, EEGs can be normal. The moderate general slowing is consistent with a moderate encephalopathy, which could be due to a variety of causes. Clinical correlation is required. [facility] EEG Procedure Codes Indication for Procedure (1) Acute encephalopathy: (2) Intentional overdose: Neurology Neurology: 71110 EEG include record awake & drowsy
[2024-10-30 15:31] LABS: Base Excess VBG 12.3 mEq/L; HCO3 VBG 37 mmol/L; Oxygen Saturation VBG 70.4 %; PCO2 VBG 45 mmHg (38-50); PO2 VBG 39 mmHg; pH VBG 7.52 (7.36-7.41)
[2024-10-30] MEDS: cefTRIAXone SODIUM 2,000 MG/50 ML BAG IV STA (19:24)
[2024-10-30] MEDS: ACETAMINOPHEN 1000 MG/100 ML IV IV PRN (20:21)
[2024-10-31] MEDS ORDERED: STAT IV Infusion **Titration per Protocol STA (00:43)
[2024-10-31] MEDS ORDERED: PROPOFOL BOLUS FROM BAG IV PRN (00:43)
[2024-10-31] MEDS: PROPOFOL IV EMULSION 10 MG/ML 100 ML VIAL IV ONE (01:18)
[2024-10-31] MEDS: propofoL 1,000 MG/100 ML VIAL IV SCH (01:18)
[2024-10-31 05:06] LABS: Basophils # (auto) 0.05 K/uL (0.00-0.20); Basophils % (auto) 0.5 %; Eosinophils # (auto) 0.08 K/uL (0.00-0.50); Eosinophils % (auto) 0.8 %; Hemoglobin 10.7 g/dl (12.0-16.0); Immature Granulocytes # (auto) 0.04 K/uL (0.01-0.20); Immature Granulocytes % (auto) 0.4 %; Lymphocytes # (auto) 3.09 K/uL (1.20-3.40); Lymphocytes % (auto) 30.3 %; Mean Corpuscular Hemoglobin 30.6 pg (25.0-34.0); Mean Corpuscular Hgb Conc 34.5 g/dL (32.0-36.0); Mean Corpuscular Volume 88.6 fL (80.0-100.0); Mean Platelet Volume 9.2 fL (9.4-12.4); Monocytes # (auto) 0.83 K/uL (0.11-0.59); Monocytes % (auto) 8.1 %; Neutrophils # (auto) 6.11 K/uL (1.40-6.50); Neutrophils % (auto) 59.9 %; Platelet Count 250 K/uL (130-400); RDW Coefficient of Variation 13.3 % (11.5-14.5); RDW Standard Deviation 43.4 fL (36.4-46.3)
[2024-10-31 05:15] LABS: Albumin Globulin Ratio 1.1 (0.9-2); Albumin Level 3.3 gm/dl (3.4-5.0); BUN Creatinine Ratio 14.3 (10-20); Bilirubin,Total 0.8 mg/dl (0.2-1.0); Calcium 9.2 mg/dl (8.6-10.3); Creatinine Clr Calc Pharmacy 78.3 ml/min; Magnesium 1.9 mg/dl (1.7-2.4); Potassium 3.5 mmol/L (3.5-5.1); Total Protein 6.3 gm/dl (6.0-8.3)
[2024-10-31 05:33] LABS: Partial Thromboplastin Ratio 1.2; Partial Thromboplastin Time 33 Seconds (21-31); Prothrombin Time 10.9 Seconds (9.0-12.0)
[2024-10-31] MEDS: POTASSIUM CHLORIDE / WTR 20 MEQ/100 ML PLCT IV SCH (06:23)
--- NOTE | 2024-10-31 09:12 | Critical Care Progress Note ---
Date of Service October 31, 2024 Assessment & Plan (1) Suicide attempt by beta chavez overdose: (2) Seizure: (3) Respiratory failure: (4) Required emergency intubation: (5) Shock: (6) Intentional overdose: Plan Reason Critically Ill: 64 YOF presented unresponsive requiring intubation in the field, seizure x2, bradycardic and hypotensive. Found with suicide note and multiple empty bottles around the patient, most concerning at this time would be the empty bottle of propranolol found in conjunction with her bradycardia and hypotension. Neuro - Intubated and sedated, encephalopathy, -Patient's neuroexam has been improving Possible seizure-like activity -EEG reviewed Acute alcohol intoxication: Resolved Polysubstance abuse: Marijuana positive Intentional drug overdose: Lamotrigine level pending - Will require mental health evaluation. Cardiac - shock in setting of likely bb overdose: Improving -Decreasing vasoactive requirements Respiratory -extubation this morning GI - - NPO RENAL/LYTES - - replete electrolytes - Parra catheter to gravity ENDO - ICU hyperglycemic protocol HEME - NO acute needs ID - No concern at this time for infective process LINES/IV ACCESS - CVL, [place], -Hopeful to discontinue invasive lines today DVT PROPHYLAXIS - SCDS, Lovenox DISPO - ICU while requiring vasopressor agents Family: Updated son yesterday. Clinical update 1400: Patient decreasing vasoactive requirements, will check ra ndom cortisol and administer 200 mg of hydrocortisone x 1. Still showing signs of delirium. EKG reassuring no QRS prolongation and normal QTc. Admission and Anticipated Discharge Date Admission Date: October 29, 2024 Supervising Physician Co-Signing Physician Notes I have personally spent 50 minutes of critical care time in the direct management of this patient. This is a life/limb threatening event. This includes time spent evaluating patient, direct bedside care, chart review, placing orders, interpretation of diagnostic studies, discussion with consultants, patient, and/or family members regarding treatment decisions, as well as other required patient management activities. This time is exclusive of all separately billable procedures, and teaching time and separate from and in addition to any other critical care service time. Subjective No overnight events, patient arouses with verbal stimuli able to follow simple commands. Physical Exam Physical Exam: General: Sedated. nontoxic. Arouses with simple auditory stimuli Skin: Warm, dry, Head: Atraumatic Ears, nose, mouth and throat: airway obscured by endotracheal tube Cardiovascular: Normal peripheral perfusion Respiratory: Ventilator settings reviewed Gastrointestinal: Non distended Musculoskeletal: No deformity Results & Data Results & Data Vital Signs (Past 12 Hours) Vital Signs Temp Pulse Resp BP Pulse Ox Pulse Ox O2 Del Method 10/31/24 08:01 117/68 10/31/24 08:01 117/68 10/31/24 08:00 37.2 C 62 23 94 10/31/24 08:00 94 Mechanical Vent 10/31/24 08:00 62 10/31/24 08:00 10/31/24 08:00 117/68 10/31/24 07:52 110/64 10/31/24 07:48 37.0 C 59 L 18 93 10/31/24 07:48 58 L 18 97 10/31/24 07:30 36.7 C 57 L 10 L 96 10/31/24 07:15 36.9 C 59 L 18 97 10/31/24 07:09 36.8 C 57 L 16 98 10/31/24 07:00 10/31/24 06:51 36.9 C 57 L 19 98 10/31/24 06:15 36.8 C 54 L 12 98 10/31/24 05:45 36.9 C 51 L 12 98 10/31/24 05:21 36.9 C 51 L 12 98 10/31/24 04:03 37.0 C 55 L 12 97 10/31/24 04:00 10/31/24 03:35 54 L 14 97 10/31/24 03:00 37.0 C 53 L 12 99 10/31/24 02:06 37.2 C 53 L 12 112/72 98 10/31/24 01:57 37.2 C 53 L 12 98 10/31/24 01:09 37.3 C 55 L 12 98 10/31/24 01:00 Mechanical Vent 10/31/24 00:06 37.3 C 58 L 12 127/79 98 10/31/24 00:00 10/31/24 00:00 57 L 10/30/24 23:39 37.5 C 56 L 12 99 10/30/24 23:32 62 14 96 10/30/24 23:15 37.5 C 56 L 12 99 10/30/24 22:06 37.8 C H 57 L 12 99 10/30/24 21:30 116/75 10/30/24 21:30 37.9 C H 56 L 15 116/75 99 10/30/24 21:09 38.0 C H 56 L 14 99 FiO2 10/31/24 08:01 10/31/24 08:01 10/31/24 08:00 10/31/24 08:00 10/31/24 08:00 10/31/24 08:00 30 10/31/24 08:00 10/31/24 07:52 10/31/24 07:48 10/31/24 07:48 30 10/31/24 07:30 10/31/24 07:15 10/31/24 07:09 10/31/24 07:00 30 10/31/24 06:51 10/31/24 06:15 10/31/24 05:45 10/31/24 05:21 10/31/24 04:03 10/31/24 04:00 40 10/31/24 03:35 40 10/31/24 03:00 10/31/24 02:06 10/31/24 01:57 10/31/24 01:09 10/31/24 01:00 10/31/24 00:06 10/31/24 00:00 40 10/31/24 00:00 10/30/24 23:39 10/30/24 23:32 40 10/30/24 23:15 10/30/24 22:06 10/30/24 21:30 10/30/24 21:30 10/30/24 21:09 Critical Care Results & Data Vital Signs (Past 12 Hours) Vital Signs Temp Pulse Resp BP Pulse Ox Pulse Ox O2 Del Method 10/31/24 08:01 117/68 10/31/24 08:01 117/68 10/31/24 08:00 37.2 C 62 23 94 10/31/24 08:00 94 Mechanical Vent 10/31/24 08:00 62 10/31/24 08:00 10/31/24 08:00 117/68 10/31/24 07:52 110/64 10/31/24 07:48 37.0 C 59 L 18 93 10/31/24 07:48 58 L 18 97 10/31/24 07:30 36.7 C 57 L 10 L 96 10/31/24 07:15 36.9 C 59 L 18 97 10/31/24 07:09 36.8 C 57 L 16 98 10/31/24 07:00 10/31/24 06:51 36.9 C 57 L 19 98 10/31/24 06:15 36.8 C 54 L 12 98 10/31/24 05:45 36.9 C 51 L 12 98 10/31/24 05:21 36.9 C 51 L 12 98 10/31/24 04:03 37.0 C 55 L 12 97 10/31/24 04:00 10/31/24 03:35 54 L 14 97 10/31/24 03:00 37.0 C 53 L 12 99 10/31/24 02:06 37.2 C 53 L 12 112/72 98 10/31/24 01:57 37.2 C 53 L 12 98 10/31/24 01:09 37.3 C 55 L 12 98 10/31/24 01:00 Mechanical Vent 10/31/24 00:06 37.3 C 58 L 12 127/79 98 10/31/24 00:00 10/31/24 00:00 57 L 10/30/24 23:39 37.5 C 56 L 12 99 10/30/24 23:32 62 14 96 10/30/24 23:15 37.5 C 56 L 12 99 10/30/24 22:06 37.8 C H 57 L 12 99 10/30/24 21:30 116/75 10/30/24 21:30 37.9 C H 56 L 15 116/75 99 10/30/24 21:09 38.0 C H 56 L 14 99 FiO2 10/31/24 08:01 10/31/24 08:01 10/31/24 08:00 10/31/24 08:00 10/31/24 08:00 10/31/24 08:00 30 10/31/24 08:00 10/31/24 07:52 10/31/24 07:48 10/31/24 07:48 30 10/31/24 07:30 10/31/24 07:15 10/31/24 07:09 10/31/24 07:00 30 10/31/24 06:51 10/31/24 06:15 10/31/24 05:45 10/31/24 05:21 10/31/24 04:03 10/31/24 04:00 40 10/31/24 03:35 40 10/31/24 03:00 10/31/24 02:06 10/31/24 01:57 10/31/24 01:09 10/31/24 01:00 10/31/24 00:06 10/31/24 00:00 40 10/31/24 00:00 10/30/24 23:39 10/30/24 23:32 40 10/30/24 23:15 10/30/24 22:06 10/30/24 21:30 10/30/24 21:30 10/30/24 21:09 Lab & Micro Results (Past 24 Hours) RBC 3.50 M/uL (4.20-5.40) L 10/31/24 WBC 10.20 K/ul (4.8-10.8) 10/31/24 Hgb 10.7 g/dl (12.0-16.0) L 10/31/24 Hct 31.0 % (37.0-47.0) L 10/31/24 MCV 88.6 fL (80.0-100.0) 10/31/24 MCH 30.6 pg (25.0-34.0) 10/31/24 MCHC 34.5 g/dL (32.0-36.0) 10/31/24 RDW Standard Deviation 43.4 fL (36.4-46.3) 10/31/24 RDW Coefficient of Variation 13.3 % (11.5-14.5) 10/31/24 Plt Count 250 K/uL (130-400) 10/31/24 MPV 9.2 fL (9.4-12.4) L 10/31/24 Neutrophils (%) (Auto) 59.9 % 10/31/24 Lymphocytes (%) (Auto) 30.3 % 10/31/24 Monocytes # (Auto) 0.83 K/uL (0.11-0.59) H 10/31/24 Eosinophils # (Auto) 0.08 K/uL (0.00-0.50) 10/31/24 Immature Granulocyte % (Auto) 0.4 % 10/31/24 Neutrophils # (Auto) 6.11 K/uL (1.40-6.50) 10/31/24 Lymphocytes # (Auto) 3.09 K/uL (1.20-3.40) 10/31/24 Monocytes # (Auto) 0.83 K/uL (0.11-0.59) H 10/31/24 Eosinophils # (Auto) 0.08 K/uL (0.00-0.50) 10/31/24 Basophils # (Auto) 0.05 K/uL (0.00-0.20) 10/31/24 Immature Granulocyte # (Auto) 0.04 K/uL (0.01-0.20) 4 Na 140 mmol/L (136-145) 10/31/24 K 3.5 mmol/L (3.5-5.1) 10/31/24 Cl 104 mmol/L (98-107) 10/31/24 CO2 31 mmol/L (21-32) 10/31/24 Anion Gap 5 (3-11) 10/31/24 BUN 12 mg/dl (6-23) 10/31/24 Creatinine 0.84 mg/dl (0.6-1.2) 10/31/24 BUN/Creatinine Ratio 14.3 (10-20) 10/31/24 Glu 125 mg/dl (70-99(Fasting)) H 10/31/24 Ca 9.2 mg/dl (8.6-10.3) 10/31/24 Total Bilirubin 0.8 mg/dl (0.2-1.0) 10/31/24 AST 22 U/L (13-39) 10/31/24 ALT 16 U/L (7-52) 10/31/24 Alkaline Phosphatase 70 U/L (34-104) 10/31/24 TP 6.3 gm/dl (6.0-8.3) 10/31/24 Albumin 3.3 gm/dl (3.4-5.0) L 10/31/24 Globulin 3.0 gm/dl (2.5-4.0) 10/31/24 Albumin/Globulin Ratio 1.1 (0.9-2) 10/31/24 Mg 1.9 mg/dl (1.7-2.4) 10/31/24 04:30 Calcium Level 9.2 mg/dl (8.6-10.3) 10/31/24 04:30 Prothromb Time International Ratio 1.0 (0.9-1.1) 10/31/24 04:3 0 Venous Blood pH 7.44 (7.36-7.41) H 10/30/24 20:35 Venous Blood Partial Pressure CO2 45 mmHg (38-50) 10/30/24 15:2 3 Venous Blood Partial Pressure O2 39 mmHg 10/30/24 15:23 Venous Blood HCO3 37 mmol/L 10/30/24 15:23 Venous Blood Base Excess 12.3 mEq/L 10/30/24 15:23 Venous Blood Oxygen Saturation 70.4 % 10/30/24 15:23 Microbiology 10/30/24 18:34 Gram Stain - Final Sputum,Vent Suction Sputum Culture - Preliminary Staphylococcus aureus I & O Totals 24 Hours 10/30/24 10/31/24 11/01/24 06:59 06:59 06:59 Intake Total 2739.211 / 2739.211 2437.730 / 2437.730 196.674 / 196.674 Output Total 750 / 750 2480 / 2605 125 / 125 Balance 1989.211 / 1989.211 -42.270 / -167.270 71.674 / 71.674 Cumulative 10/29/24 18:05 thru 10/31/24 09:02 Intake Total 5373.615 Output Total 3355 Balance 2018.615 RT Ventilator Mngmt (Last Documented) Ventilator Ordered Settings Ventilator Support Mode CPAP 10/31/24 08:00 Respiratory Rate 23 10/31/24 08:00 Ventilator Tidal Volume 420 10/31/24 04:00 Setting Minute Ventilation 5.5 10/31/24 07:48 Ventilator Positive Pressure 7 10/31/24 08:00 Support Setting Positive End Expiratory 5 10/31/24 08:00 Pressure Fraction of Inspired Oxygen 30 10/31/24 08:00 Machine Comment titrated to 40% 10/30/24 03:39 Ventilator - PT Measurements Respiratory Rate 23 Exhaled Tidal Volume 324 Minute Ventilation 5.5 Peak Inspiratory Airway 10 Pressure Plateau Pressure 16.1 Respiratory Cycle Inspiratory: 1:4.4 Expiratory Ratio Inspiratory Phase Time 0.8 End-Tidal CO2 58 Static Lung Compliance 37.84 Dynamic Lung Compliance 64.80 Normal Static Lung Compliance 49.00 Patient Measurements Comment Pt placed on PS by Dr. Soto Coding Level of Care Code 79694 CRITICAL CARE 1ST 30-74M Diagnoses Suicide attempt by beta chavez overdose T44.7X2A Encounter type: initial encounter Seizure R56.9 Respiratory failure J96.01; J96.02 Chronicity: acute Respiratory failure complication: hypoxia and hypercapnia Required emergency intubation Z98.890 Shock R57.9 Intentional overdose T50.902A (1) Suicide attempt by beta chavez overdose Encounter type: initial encounter Qualified Code(s): T44.7X2A - Poisoning by beta-adrenoreceptor antagonists, intentional self-harm, initial encounter (3) Respiratory failure Chronicity: acute Respiratory failure complication: hypoxia and hypercapnia Qualified Code(s): J96.01 - Acute respiratory failure with hypoxia; J96.02 - Acute respiratory failure with hypercapnia
--- NOTE | 2024-10-31 09:31 | XRay Report ---
EXAM: XR chest 1V portable CLINICAL HISTORY: EVAL LINES/TUBES/LUNG HAM JTF/BRM TECHNIQUE: An X-ray image of the chest is obtained in AP projection. COMPARISON: Prior 10/30/2024 FINDINGS: Endotracheal tube in situ, 31 mm proximal to the tim after repositioning, previously was only 13 mm above the tim Central venous line seen through the right jugular vein, with its tip slightly distal to the cavoatrial junction, in the right atrium, stable since prior Earlier seen nasogastric tube not appreciated on current radiograph Pulmonary Parenchyma: Prominent bronchovascular markings seen in the lung ahm with persistent ill-defined airspace shadowing in the right perihilar region, stable Opacity seen blunting the left costophrenic angle, silhouetting the left hemidiaphragm and extending along the left lateral chest wall suggests pleural effusion, this shows progression since previous Heart and Mediastinum: Heart size and shape are normal. No mediastinal widening or masses. No hilar or mediastinal lymphadenopathy. Bony Thorax: Bony thorax appears intact without fractures or deformities. Soft Tissues: Soft tissues overlying the chest wall are unremarkable. IMPRESSION: 1. In-situ Endotracheal tube seen 31 mm above the tim now after repositioning, previously was 13 mm above tim. 2. In-situ Central venous line through the right jugular vein with its tip slightly distal to the cavoatrial junction, in the right atrium, stable since prior. 3. Earlier seen nasogastric tube not appreciated on current radiograph. 4. Interval worsening of the left sided pleural effusion. 5. Interval stable pulmonary changes as were seen earlier. 6. Clinical correlation advised. Electronically signed by Stacy Tian 10-31-2024 09:31 AM
[2024-10-31] MEDS: HYDROCORTISONE SOD 200 MG in SYRINGE 0 ML IV STA (15:51)
--- NOTE | 2024-10-31 16:24 | Electrocardiogram Report ---
Test Reason : Blood Pressure : */* mmHG Vent. Rate : 65 BPM Atrial Rate : 65 BPM P-R Int : 162 ms QRS Dur : 102 ms QT Int : 438 ms P-R-T Axes : 54 71 64 degrees QTcB Int : 455 ms Normal sinus rhythm Normal ECG When compared with ECG of 30-Oct-2024 04:54, No significant change was found Confirmed by Chucky Oro ([id number]) on 10/31/2024 4:24:17 PM Referred By: REFERRED SELF Confirmed By: Chucky Oro
[2024-10-31] MEDS: cefTRIAXone SODIUM 2,000 MG/50 ML BAG IV SCH (18:13)
[2024-10-31] MEDS: HALOPERIDOL LACTATE 5 MG/ML 1 ML VIAL IV STA (21:15)
[2024-10-31] MEDS: POTASSIUM CHLORIDE 20 MEQ/15 ML UDC PO STA (23:16)
--- NOTE | 2024-11-01 00:09 | Hospitalist Progress Note ---
Date of Service October 31, 2024 Assessment & Plan (1) Intentional overdose: Plan: suiscide by Beta Joleen overdose (2) Shock: (3) Seizure: (4) Respiratory failure: Plan Admitted to intensive care unit/emergency intubation in the field, intentional Rx multidrug drug overdose/shock secondary to medicine with hypotension Echo, normal LV function, CT scan of head is negative continue pressor support as per icu team Urine drug screen positive for marijuana, with other testing negative Alcohol level 74.8 Salicylates negative and acetaminophen negative Initial lactate 3.1, with follow-up 2.7, and will follow serially COVID testing negative Pantoprazole 40 mg IV twice daily Zofran 4 mg IV every 6 hours as needed Extubated on 10/31 remains on pressor support multiple out pt providers have ordered similar meds, med recc at or will be vital Admission and Anticipated Discharge Date Admission Date: October 29, 2024 Subjective Patient awakens with verbal stimuli able to follow simple commands. Physical Exam Physical Exam: pt is ventilated has coarse breath sounds bilaterally cardiac is regular Results & Data Results & Data Vital Signs (Past 12 Hours) Vital Signs Temp Pulse Resp BP Pulse Ox Pulse Ox O2 Del Method 10/31/24 23:48 65 10/31/24 23:29 Oxymask 10/31/24 22:00 99/71 L 10/31/24 22:00 37.1 C 68 21 99/71 L 90 10/31/24 21:06 37.7 C H 73 18 91 10/31/24 20:30 131/77 10/31/24 20:09 37.7 C H 74 22 10/31/24 20:08 Oxymask 10/31/24 19:00 37.6 C H 70 28 H 122/76 92 10/31/24 18:00 102/63 10/31/24 18:00 102/63 10/31/24 18:00 102/63 10/31/24 17:57 37.1 C 69 17 91 10/31/24 17:00 37.2 C 67 22 93 10/31/24 17:00 107/10/31/24 17:00 107/10/31/24 17:00 107/10/31/24 17:00 107/10/31/24 17:00 107/10/31/24 16:51 91 Oxymask 10/31/24 16:43 90 Nasal Cannula 10/31/24 16:06 37.1 C 67 17 90 10/31/24 16:01 109/81 10/31/24 16:01 109/81 10/31/24 16:01 109/81 10/31/24 16:00 92 10/31/24 16:00 63 10/31/24 16:00 63 98/58 L 10/31/24 15:48 37.1 C 64 19 93 10/31/24 15:06 37.0 C 64 20 91 10/31/24 15:00 109/66 10/31/24 14:48 37.1 C 63 19 90 10/31/24 14:12 37.2 C 64 26 H 88 L 10/31/24 14:00 88 L Nasal Cannula 10/31/24 13:55 80/55 L 10/31/24 13:55 80/55 L 10/31/24 13:55 80/55 L 10/31/24 13:36 37.4 C 63 20 95 10/31/24 13:12 37.4 C 63 21 96 O2 Del Method O2 Flow Rate O2 Flow Rate 10/31/24 23:48 10/31/24 23:29 13 10/31/24 22:00 10/31/24 22:00 10/31/24 21:06 10/31/24 20:30 10/31/24 20:09 10/31/24 20:08 10 10/31/24 19:00 10/31/24 18:00 10/31/24 18:00 10/31/24 18:00 10/31/24 17:57 10/31/24 17:00 10/31/24 17:00 10/31/24 17:00 10/31/24 17:00 10/31/24 17:00 10/31/24 17:00 10/31/24 16:51 6 10/31/24 16:43 6 10/31/24 16:06 10/31/24 16:01 10/31/24 16:01 10/31/24 16:01 10/31/24 16:00 Nasal Cannula 4 10/31/24 16:00 10/31/24 16:00 10/31/24 15:48 10/31/24 15:06 10/31/24 15:00 10/31/24 14:48 10/31/24 14:12 10/31/24 14:00 4 10/31/24 13:55 10/31/24 13:55 10/31/24 13:55 10/31/24 13:36 10/31/24 13:12 PG Care Time/CCT Total # of Minutes Spent Total Time Spent with Patient: Total time spent is greater than 50% in coordination of care (as documented) at patient's floor/unit and/or counseling patient: Coding Level of Care Code 14892 SUB INP/OBS CARE 2/35MIN Diagnoses Intentional overdose T50.902A Shock R57.9 Seizure R56.9 Respiratory failure J96.01; J96.02 Chronicity: acute Respiratory failure complication: hypoxia and hypercapnia (4) Respiratory failure Chronicity: acute Respiratory failure complication: hypoxia and hypercapnia Qualified Code(s): J96.01 - Acute respiratory failure with hypoxia; J96.02 - Acute respiratory failure with hypercapnia
[2024-11-01 04:53] LABS: Basophils # (auto) 0.01 K/uL (0.00-0.20); Basophils % (auto) 0.1 %; Hematocrit (blood only) 31.4 % (37.0-47.0); Hemoglobin 10.3 g/dl (12.0-16.0); Immature Granulocytes # (auto) 0.03 K/uL (0.01-0.20); Immature Granulocytes % (auto) 0.4 %; Lymphocytes # (auto) 1.32 K/uL (1.20-3.40); Lymphocytes % (auto) 16.7 %; Mean Corpuscular Hemoglobin 29.9 pg (25.0-34.0); Mean Corpuscular Hgb Conc 32.8 g/dL (32.0-36.0); Mean Corpuscular Volume 91.3 fL (80.0-100.0); Mean Platelet Volume 9.4 fL (9.4-12.4); Monocytes # (auto) 0.37 K/uL (0.11-0.59); Monocytes % (auto) 4.7 %; Neutrophils # (auto) 6.17 K/uL (1.40-6.50); Neutrophils % (auto) 78.1 %; Platelet Count 193 K/uL (130-400); RDW Standard Deviation 43.3 fL (36.4-46.3); Red Blood Count 3.44 M/uL (4.20-5.40)
[2024-11-01 05:05] LABS: Albumin Globulin Ratio 1.1 (0.9-2); Albumin Level 3.5 gm/dl (3.4-5.0); Bilirubin,Total 0.6 mg/dl (0.2-1.0); Creatinine Clr Calc Pharmacy 87.2 ml/min; Globulin 3.3 gm/dl (2.5-4.0); Magnesium 1.8 mg/dl (1.7-2.4); Potassium 4.1 mmol/L (3.5-5.1); Total Protein 6.8 gm/dl (6.0-8.3)
[2024-11-01 05:14] LABS: Partial Thromboplastin Ratio 1.2; Partial Thromboplastin Time 31 Seconds (21-31); Prothrombin Time 10.4 Seconds (9.0-12.0)
--- NOTE | 2024-11-01 07:21 | Critical Care Progress Note ---
Date of Service November 01, 2024 Assessment & Plan (1) Suicide attempt by beta chavez overdose: (2) Seizure: (3) Respiratory failure: (4) Required emergency intubation: (5) Shock: (6) Intentional overdose: Plan Reason Critically Ill: 64 YOF presented unresponsive requiring intubation in the field, seizure x2, bradycardic and hypotensive. Found with suicide note and multiple empty bottles around the patient, most concerning at this time would be the empty bottle of propranolol found in conjunction with her bradycardia and hypotension. Neuro -encephalopathy: Likely multifactorial -Agitated delirium overnight -Active auditory visual hallucinations -Check TSH Possible seizure-like activity -EEG reviewed Acute alcohol intoxication: Resolved -No obvious alcohol withdraw Polysubstance abuse: Marijuana positive Intentional drug overdose: Lamotrigine level pending -Awaiting mental health evaluation. Cardiac - shock resolved Respiratory -liberated from ventilator yesterday GI - -bedside swallow eval first possible speech evaluation -If passes bedside swallow will initiate diet RENAL/LYTES - - replete electrolytes - Parra catheter to gravity ENDO - relative adrenal insufficiency -Random cortisol low, given stress dose steroids -Discontinuing additional steroids at the this time HEME - NO acute needs ID -febrile illness -Started on Rocephin for possible pneumonia given ventilator requirements and fever -Consider transition to Augmentin for 5 days (7 days total therapy) LINES/IV ACCESS - [place], [place], -Hopeful to discontinue invasive lines today DVT PROPHYLAXIS - SCDS, Lovenox DISPO -critical care needs have resolved stable for downgrade out of ICU. Admission and Anticipated Discharge Date Admission Date: October 29, 2024 Subjective Overnight patient became more interactive however this is more agitated delirium requiring chemical restraint. Patient having auditory and visual hallucinations, some I oriented. Somewhat redirectable Had increased oxygen requirement overnight, suspect baseline obstructive sleep apnea Physical Exam Physical Exam: General: Alert. nontoxic. Skin: Warm, dry, Head: Atraumatic Ears, nose, mouth and throat: airway patent Cardiovascular: Normal peripheral perfusion Respiratory: no respiratory distress Gastrointestinal: Non distended Musculoskeletal: No deformity Results & Data Results & Data Vital Signs (Past 12 Hours) Vital Signs Temp Pulse Pulse Resp BP Pulse Ox O2 Del Method 11/01/24 06:00 36.7 C 59 L 16 128/77 99 11/01/24 05:44 62 18 97 High Flow Nasal Cannula 11/01/24 05:00 36.5 C 59 L 20 125/75 97 11/01/24 04:06 36.2 C L 58 L 15 117/70 96 11/01/24 03:51 36.0 C L 61 18 95 11/01/24 03:12 36.2 C L 59 L 15 96 11/01/24 03:00 135/82 11/01/24 02:57 35.9 C L 62 16 95 11/01/24 02:45 60 20 96 High Flow Nasal Cannula 11/01/24 02:06 36.0 C L 61 17 118/66 95 11/01/24 01:54 36.0 C L 61 18 95 11/01/24 01:30 36.1 C L 62 17 95 11/01/24 00:23 64 20 96 High Flow Nasal Cannula 11/01/24 00:03 36.3 C L 64 19 114/65 92 10/31/24 23:48 65 10/31/24 23:29 Oxymask 10/31/24 23:27 36.3 C L 65 25 H 88 L 10/31/24 23:18 36.3 C L 66 19 95/68 L 88 L 10/31/24 22:57 36.6 C 66 19 88 L 10/31/24 22:00 99/71 L 10/31/24 22:00 37.1 C 68 21 99/71 L 90 10/31/24 21:06 37.7 C H 73 18 91 10/31/24 20:30 131/77 10/31/24 20:09 37.7 C H 74 22 10/31/24 20:08 Oxymask O2 Flow Rate FiO2 11/01/24 06:00 11/01/24 05:44 50 50 11/01/24 05:00 11/01/24 04:06 11/01/24 03:51 11/01/24 03:12 11/01/24 03:00 11/01/24 02:57 11/01/24 02:45 50 70 11/01/24 02:06 11/01/24 01:54 11/01/24 01:30 11/01/24 00:23 50 80 11/01/24 00:03 10/31/24 23:48 10/31/24 23:29 13 10/31/24 23:27 10/31/24 23:18 10/31/24 22:57 10/31/24 22:00 10/31/24 22:00 10/31/24 21:06 10/31/24 20:30 10/31/24 20:09 10/31/24 20:08 10 Critical Care Results & Data Vital Signs (Past 12 Hours) Vital Signs Temp Pulse Pulse Resp BP Pulse Ox O2 Del Method 11/01/24 06:00 36.7 C 59 L 16 128/77 99 11/01/24 05:44 62 18 97 High Flow Nasal Cannula 11/01/24 05:00 36.5 C 59 L 20 125/75 97 11/01/24 04:06 36.2 C L 58 L 15 117/70 96 11/01/24 03:51 36.0 C L 61 18 95 11/01/24 03:12 36.2 C L 59 L 15 96 11/01/24 03:00 135/82 11/01/24 02:57 35.9 C L 62 16 95 11/01/24 02:45 60 20 96 High Flow Nasal Cannula 11/01/24 02:06 36.0 C L 61 17 118/66 95 11/01/24 01:54 36.0 C L 61 18 95 11/01/24 01:30 36.1 C L 62 17 95 11/01/24 00:23 64 20 96 High Flow Nasal Cannula 11/01/24 00:03 36.3 C L 64 19 114/65 92 10/31/24 23:48 65 10/31/24 23:29 Oxymask 10/31/24 23:27 36.3 C L 65 25 H 88 L 10/31/24 23:18 36.3 C L 66 19 95/68 L 88 L 10/31/24 22:57 36.6 C 66 19 88 L 10/31/24 22:00 99/71 L 10/31/24 22:00 37.1 C 68 21 99/71 L 90 10/31/24 21:06 37.7 C H 73 18 91 10/31/24 20:30 131/77 10/31/24 20:09 37.7 C H 74 22 10/31/24 20:08 Oxymask O2 Flow Rate FiO2 11/01/24 06:00 11/01/24 05:44 50 50 11/01/24 05:00 11/01/24 04:06 11/01/24 03:51 11/01/24 03:12 11/01/24 03:00 11/01/24 02:57 11/01/24 02:45 50 70 11/01/24 02:06 11/01/24 01:54 11/01/24 01:30 11/01/24 00:23 50 80 11/01/24 00:03 10/31/24 23:48 10/31/24 23:29 13 10/31/24 23:27 10/31/24 23:18 10/31/24 22:57 10/31/24 22:00 10/31/24 22:00 10/31/24 21:06 10/31/24 20:30 10/31/24 20:09 10/31/24 20:08 10 Lab & Micro Results (Past 24 Hours) RBC 3.44 M/uL (4.20-5.40) L 11/01/24 WBC 7.90 K/ul (4.8-10.8) 11/01/24 Hgb 10.3 g/dl (12.0-16.0) L 11/01/24 Hct 31.4 % (37.0-47.0) L 11/01/24 MCV 91.3 fL (80.0-100.0) 11/01/24 MCH 29.9 pg (25.0-34.0) 11/01/24 MCHC 32.8 g/dL (32.0-36.0) 11/01/24 RDW Standard Deviation 43.3 fL (36.4-46.3) 11/01/24 RDW Coefficient of Variation 13.0 % (11.5-14.5) 11/01/24 Plt Count 193 K/uL (130-400) 11/01/24 MPV 9.4 fL (9.4-12.4) 11/01/24 Neutrophils (%) (Auto) 78.1 % 11/01/24 Lymphocytes (%) (Auto) 16.7 % 11/01/24 Monocytes # (Auto) 0.37 K/uL (0.11-0.59) 11/01/24 Eosinophils # (Auto) 0.00 K/uL (0.00-0.50) 11/01/24 Immature Granulocyte % (Auto) 0.4 % 11/01/24 Neutrophils # (Auto) 6.17 K/uL (1.40-6.50) 11/01/24 Lymphocytes # (Auto) 1.32 K/uL (1.20-3.40) 11/01/24 Monocytes # (Auto) 0.37 K/uL (0.11-0.59) 11/01/24 Eosinophils # (Auto) 0.00 K/uL (0.00-0.50) 11/01/24 Basophils # (Auto) 0.01 K/uL (0.00-0.20) 11/01/24 Immature Granulocyte # (Auto) 0.03 K/uL (0.01-0.20) 4 Na 140 mmol/L (136-145) 11/01/24 K 4.1 mmol/L (3.5-5.1) 11/01/24 Cl 107 mmol/L (98-107) 11/01/24 CO2 26 mmol/L (21-32) 11/01/24 Anion Gap 7 (3-11) 11/01/24 BUN 12 mg/dl (6-23) 11/01/24 Creatinine 0.75 mg/dl (0.6-1.2) 11/01/24 BUN/Creatinine Ratio 16.0 (10-20) 11/01/24 Glu 104 mg/dl (70-99(Fasting)) H 11/01/24 Ca 9.0 mg/dl (8.6-10.3) 11/01/24 Total Bilirubin 0.6 mg/dl (0.2-1.0) 11/01/24 AST 18 U/L (13-39) 11/01/24 ALT 14 U/L (7-52) 11/01/24 Alkaline Phosphatase 73 U/L (34-104) 11/01/24 TP 6.8 gm/dl (6.0-8.3) 11/01/24 Albumin 3.5 gm/dl (3.4-5.0) 11/01/24 Globulin 3.3 gm/dl (2.5-4.0) 11/01/24 Albumin/Globulin Ratio 1.1 (0.9-2) 11/01/24 Mg 1.8 mg/dl (1.7-2.4) 11/01/24 04:32 Calcium Level 9.0 mg/dl (8.6-10.3) 11/01/24 04:32 Prothromb Time International Ratio 1.0 (0.9-1.1) 11/01/24 04:3 2 Microbiology 10/30/24 18:34 Gram Stain - Final Sputum,Vent Suction Sputum Culture - Preliminary Staphylococcus aureus Diagnostic Findings (Past 24 Hours) Chest X-Ray 10/31/24 06:00 EXAM: XR chest 1V portable CLINICAL HISTORY: EVAL LINES/TUBES/LUNG HAM JTF/BRM TECHNIQUE: An X-ray image of the chest is obtained in AP projection. COMPARISON: Prior 10/30/2024 FINDINGS: Endotracheal tube in situ, 31 mm proximal to the tim after repositioning, previously was only 13 mm above the tim Central venous line seen through the right jugular vein, with its tip slightly distal to the cavoatrial junction, in the right atrium, stable since prior Earlier seen nasogastric tube not appreciated on current radiograph Pulmonary Parenchyma: Prominent bronchovascular markings seen in the lung ham with persistent ill-defined airspace shadowing in the right perihilar region, stable Opacity seen blunting the left costophrenic angle, silhouetting the left hemidiaphragm and extending along the left lateral chest wall suggests pleural effusion, this shows progression since previous Heart and Mediastinum: Heart size and shape are normal. No mediastinal widening or masses. No hilar or mediastinal lymphadenopathy. Bony Thorax: Bony thorax appears intact without fractures or deformities. Soft Tissues: Soft tissues overlying the chest wall are unremarkable. IMPRESSION: 1. In-situ Endotracheal tube seen 31 mm above the tim now after repositioning, previously was 13 mm above tim. 2. In-situ Central venous line through the right jugular vein with its tip slightly distal to the cavoatrial junction, in the right atrium, stable since prior. 3. Earlier seen nasogastric tube not appreciated on current radiograph. 4. Interval worsening of the left sided pleural effusion. 5. Interval stable pulmonary changes as were seen earlier. 6. Clinical correlation advised. Electronically signed by Stacy Tian 10-31-2024 09:31 AM I & O Totals 24 Hours 10/31/24 11/01/24 11/02/24 06:59 06:59 06:59 Intake Total 2437.730 / 2437.730 428.754 / 428.754 Output Total 2480 / 2605 1415 / 1415 Balance -42.270 / -167.270 -986.246 / -986.246 Cumulative 10/29/24 18:05 thru 11/01/24 06:15 Intake Total 5605.695 Output Total 4645 Balance 960.695 RT Ventilator Mngmt (Last Documented) Ventilator Ordered Settings Ventilator Support Mode CPAP 10/31/24 08:00 Respiratory Rate 16 11/01/24 06:00 Ventilator Tidal Volume 420 10/31/24 04:00 Setting Minute Ventilation 5.5 10/31/24 07:48 Ventilator Positive Pressure 7 10/31/24 08:00 Support Setting Positive End Expiratory 5 10/31/24 08:00 Pressure Fraction of Inspired Oxygen 50 11/01/24 05:44 Machine Comment titrated to 40% 10/30/24 03:39 Ventilator - PT Measurements Respiratory Rate 16 Exhaled Tidal Volume 324 Minute Ventilation 5.5 Peak Inspiratory Airway 10 Pressure Plateau Pressure 16.1 Respiratory Cycle Inspiratory: 1:4.4 Expiratory Ratio Inspiratory Phase Time 0.8 End-Tidal CO2 48 Static Lung Compliance 37.84 Dynamic Lung Compliance 64.80 Normal Static Lung Compliance 49.00 Patient Measurements Comment Pt placed on PS by Dr. Soto Coding Level of Care Code 66802 SUB INP/OBS CARE 3/50MIN Diagnoses Suicide attempt by beta chavez overdose T44.7X2A Encounter type: initial encounter Seizure R56.9 Respiratory failure J96.01; J96.02 Chronicity: acute Respiratory failure complication: hypoxia and hypercapnia Required emergency intubation Z98.890 Shock R57.9 Intentional overdose T50.902A (1) Suicide attempt by beta chavez overdose Encounter type: initial encounter Qualified Code(s): T44.7X2A - Poisoning by beta-adrenoreceptor antagonists, intentional self-harm, initial encounter (3) Respiratory failure Chronicity: acute Respiratory failure complication: hypoxia and hypercapnia Qualified Code(s): J96.01 - Acute respiratory failure with hypoxia; J96.02 - Acute respiratory failure with hypercapnia
--- NOTE | 2024-11-01 08:06 | XRay Report ---
EXAM: XR chest 1V portable CLINICAL HISTORY: F/U. TECHNIQUE: X-ray chest was obtained in AP projection. COMPARISON: 10/31/24. FINDINGS: An endotracheal tube is not well appreciated in the current X-ray. A central venous line was seen through the right jugular vein, with its tip slightly distal to the cavoatrial junction, in the right atrium, stable since the prior. Pulmonary Parenchyma: Redemonstration of Prominent bronchovascular markings seen in the lung cao with persistent ill-defined airspace shadowing in the right perihilar region, stable. Redemonstartion of Opacity seen blunting the left costophrenic angle, and partially silhouetting the left hemidiaphragm suggests pleural effusion, this shows mild regression since the previous. Heart and Mediastinum: Heart size and shape are normal. No mediastinal widening or masses. No hilar or mediastinal lymphadenopathy. Bony Thorax: The bony thorax appears intact without fractures or deformities. Soft Tissues: Soft tissues overlying the chest wall are unremarkable. IMPRESSION: 1. Previously seen endotracheal tube is not well appreciated in current x-ray, removed, correlate clinically. 2. Interval improvement was noted in left-sided pleural effusion. 3. The rest of the findings are unchanged. Electronically signed by Stacy Tian 11-01-2024 08:06 AM
[2024-11-01 09:10] LABS: Thyroid Stimulating Hormone 0.382 uIu/ml (0.300-4.500)
[2024-11-01 13:48] LABS: Hematocrit (blood only) 31.4 % (37.0-47.0); Hemoglobin 10.4 g/dl (12.0-16.0); Mean Corpuscular Hemoglobin 29.8 pg (25.0-34.0); Mean Corpuscular Hgb Conc 33.1 g/dL (32.0-36.0); Mean Platelet Volume 9.4 fL (9.4-12.4); Platelet Count 209 K/uL (130-400); RDW Coefficient of Variation 12.8 % (11.5-14.5); RDW Standard Deviation 41.9 fL (36.4-46.3); Red Blood Count 3.49 M/uL (4.20-5.40); White Blood Count 9.42 K/ul (4.8-10.8)
[2024-11-01] MEDS: ceFAZolin 2000MG 2,000 MG/15 ML SYR IV SCH (13:52)
[2024-11-01] MEDS ORDERED: Nursing to Pharmacy Communication SCH (15:30)
[2024-11-01] MEDS: INSULIN ASPART PER UNIT CHARGE SC SCH (17:40)
--- NOTE | 2024-11-01 23:00 | Hospitalist Progress Note ---
Date of Service November 01, 2024 Assessment & Plan (1) Intentional overdose: Plan: suiscide by Beta Joleen overdose (2) Shock: (3) Seizure: (4) Respiratory failure: Plan Admitted to intensive care unit/emergency intubation in the field, intentional Rx multidrug drug overdose/shock secondary to medicine with hypotension Echo, normal LV function, CT scan of head is negative continue pressor support as per icu team Urine drug screen positive for marijuana, with other testing negative Alcohol level 74.8 Salicylates negative and acetaminophen negative Initial lactate 3.1, with follow-up 2.7, and will follow serially COVID testing negative Pantoprazole 40 mg IV twice daily Zofran 4 mg IV every 6 hours as needed Extubated on 10/31 Off pressor support on 11/01 Patient with a fever on 11/01, given staph aureus in sputum will switch ceftriaxone to cefazolin due to better coverage for MSSA and improved IDALIA. Transfer out of the ICU. multiple out pt providers have ordered similar meds, med recc at in will be vital Admission and Anticipated Discharge Date Admission Date: October 29, 2024 Subjective 64 yo female is a poor historian. Sister at bedside. One to one in room. Physical Exam Physical Exam: pt is awake on nasal cannula Improved breath sounds cardiac is regular Results & Data Results & Data Vital Signs (Past 12 Hours) Vital Signs Temp Pulse Pulse Resp BP BP Pulse Ox 11/01/24 20:04 37.2 C 61 20 117/67 98 11/01/24 20:00 11/01/24 16:00 11/01/24 12:21 37.9 C H 67 23 96 11/01/24 12:06 119/53 L 11/01/24 11:06 38.0 C H 67 21 95 11/01/24 11:01 130/56 L 11/01/24 11:01 130/56 L Pulse Ox O2 Del Method O2 Del Method O2 Flow Rate O2 Flow Rate 11/01/24 20:04 Nasal Cannula 3 11/01/24 20:00 Nasal Cannula 3 11/01/24 16:00 93 Nasal Cannula 4 11/01/24 12:21 11/01/24 12:06 11/01/24 11:06 11/01/24 11:01 11/01/24 11:01 PG Care Time/CCT Total # of Minutes Spent Total Time Spent with Patient: Total time spent is greater than 50% in coordination of care (as documented) at patient's floor/unit and/or counseling patient: Coding Level of Care Code 49492 SUB INP/OBS CARE 3/50MIN Diagnoses Intentional overdose T50.902A Shock R57.9 Seizure R56.9 Respiratory failure J96.01; J96.02 Chronicity: acute Respiratory failure complication: hypoxia and hypercapnia Time Spent (min) 50 (4) Respiratory failure Chronicity: acute Respiratory failure complication: hypoxia and hypercapnia Qualified Code(s): J96.01 - Acute respiratory failure with hypoxia; J96.02 - Acute respiratory failure with hypercapnia
[2024-11-02 04:22] LABS: Hematocrit (blood only) 31.4 % (37.0-47.0); Hemoglobin 10.5 g/dl (12.0-16.0); Mean Corpuscular Hemoglobin 30.2 pg (25.0-34.0); Mean Corpuscular Hgb Conc 33.4 g/dL (32.0-36.0); Mean Corpuscular Volume 90.2 fL (80.0-100.0); Mean Platelet Volume 9.1 fL (9.4-12.4); Platelet Count 209 K/uL (130-400); RDW Coefficient of Variation 12.6 % (11.5-14.5); RDW Standard Deviation 41.3 fL (36.4-46.3); Red Blood Count 3.48 M/uL (4.20-5.40); White Blood Count 6.87 K/ul (4.8-10.8)
[2024-11-02 04:39] LABS: BUN Creatinine Ratio 14.1 (10-20); C Reactive Protein 4.16 mg/dl (0-0.5); Calcium 9.2 mg/dl (8.6-10.3); Potassium 3.8 mmol/L (3.5-5.1)
[2024-11-02 09:52] LABS: Marijuana Quant, GCMS Urine 537 ng/mL (<5)
[2024-11-02] MEDS: ACETAMINOPHEN 325 MG TAB PO PRN (14:07)
--- NOTE | 2024-11-02 14:21 | Psychiatric Consultation ---
Date of Consultation November 02, 2024 Impression / Recommendations Impression 64 y/o domiciled by self, unemployed F h/o depression, anxiety presenting with multiple drug overdose (Propranolol, Quetiapine, Lamotrigine) in the context of alcohol intoxication and escalating depression. Stockpiled medications and sent photo of empty pill bottles to friend. Found unresponsive by EMS and presented two seizures in the field requiring IV benzodiazapine. Admitted to the ICU, requiring intubation and oxygen. Now lucid and seen by psychiatry from suicide attempt. Concern for major depressive episode. Pt minimizing symptoms however concern for loss of self esteem, inc guilt, suicidality, racing thoughts. Currently denies SI, is future oriented and presents intact reality testing wanting to live for family. High risk for repeat behavior. Agreeable to inpatient psychiatry admission. Labs reviewed: Hemoglobin 10.5, CRP 4.1; BMP, LFTs, procalcitonin, TSH, lipase, UA unremarkable; UDS positive for THC, blood alcohol 74 on admission; EKG unremarkable. Overall, I spent a total of 80 minutes with this case including review of chart records, nursing report, review of lab work, direct evaluation of the patient at bedside, counseling the patient, discussion of the patient with the hospitalist provider, discussion with the psychiatric liaison during clinical rounds, gathering collateral from sister and documentation in the electronic health record. (1) Major depression, recurrent: (2) Anxiety: (3) Suicide attempt by multiple drug overdose: Encounter type: initial encounter Qualified Code(s): T50.912A - Poisoning by multiple unspecified drugs, medicaments and biological substances, intentional self-harm, initial encounter (4) Cannabis abuse: (5) Chronic pain: Plan inpatient psychiatry admission after medically stable hold home psychotropics continue 1:1 sitter if pt requests discharge, contact nurse liaison for safety assessment Psych History Identifying Data 64 y/o domiciled by self, unemployed F h/o depression, anxiety presenting with multiple drug overdose (Propranolol, Quetiapine, Lamotrigine) in the context of alcohol intoxication and escalating depression. Stockpiled medications and sent photo of empty pill bottles to friend. Found unresponsive by EMS and presented two seizures in the field requiring IV benzodiazapine. Admitted to the ICU, requiring intubation and oxygen. Now lucid and seen by psychiatry from suicide attempt. Chief Complaint "Didn't know how to reach out to family and felt isolated" History of Present Illness Patient reports feeling isolated and felt like a burden on her family. "Did not know how to reach out to my family". Complains of racing thoughts and difficulty functioning. Reports being under a "lot of stress" and if she told the family that she would be "Sand". Often feels "nervous" and ruminates about financial worries. She denies having low mood. Says she has been isolated for months. Reports escalating medical problems including chronic pain. "Did not want to be a burden". Complains of severed sciatic nerve. Reports having poor recall of what occurred. Remembers doing well that day and was with her nieces and sister. In the evening they went to a country bar and had some drinks and food. She reports being happy. She cannot remember what happened afterwards. She was told that she took 5 bottles of medications. She reports being confused taking medications from multiple doctors and had a 150 mg Seroquel and also 50 mg Seroquel. She denies current suicidal ideation. She reports goals of having better functioning and less racing thoughts. Reports smoking 1 joint of cannabis nightly. Drinks alcohol socially and has many sober days. Denies other drug use. Becomes tearful and feels bad for what her family had to go through regarding the overdose. Home psychiatric medications: Propranlol 10mg TID, Lamotrigine 50mg QD, Paroxetine 40mg QD, Quetiapine 50mg HS. Social history: Patient lives in the home owned by sister. Sister and other family members live close by and supportive. Moved to [place] from 3 years ago and previously lived in [place] for 20 years. Past SSI and recently having difficulty obtaining SSI here. Past outpatient psychiatry at [facility]. No past psychiatric hospitalizations. Some access to firearms through family members. Allergies Allergy/AdvReac Type Severity Reaction Status Date / Time oxycodone [From OxyContin] Allergy Hives Verified 09/27/24 10:44 Home Medications Medication Instructions Recorded Confirmed Type folic acid 1 mg tablet 1 mg PO DAILY 09/27/24 09/27/24 History gabapentin 400 mg capsule 400 mg PO TID 09/27/24 09/27/24 History lamotrigine 25 mg tablet 25 mg PO DAILY 09/27/24 09/27/24 History magnesium oxide 400 mg (241.3 mg 400 mg PO DAILY 09/27/24 09/27/24 History magnesium) tablet meloxicam 15 mg tablet 15 mg PO DAILY 09/27/24 09/27/24 History pantoprazole 40 mg tablet,delayed 40 mg PO DAILY 09/27/24 09/27/24 History release paroxetine HCl 40 mg tablet 40 mg PO DAILY 09/27/24 09/27/24 History riboflavin (vitamin B2) 100 mg 100 mg PO DAILY 09/27/24 09/27/24 History tablet sumatriptan succinate 25 mg tablet See Rx Instructions PO .COMPLEX 09/27/24 09/27/24 History Patient History Medical History No significant past medical history Surgical History H/O breast augmentation History of hip replacement History of tubal ligation S/P spinal surgery Social History (System 11/05/23 @ 11:29 by Katherin Stover) Smoking Status: Never smoker Preferred Language: Citizen Of [place] Communication Ability: Effective Bell Captain Required: No Beliefs That Will Affect Care: Cultural Feels Safe at Home: Yes Assistive Devices: None Physical Exam Mental Examination: Appearance: Disheveled Eye Contact: Maintains Eye Contact Motor Behavior: Unremarkable Speech: Normal Mood: Euthymic and Happy Affect: Appropriate and Congruent Thought Process: Intact, Linear and Racing Thought Content: Intact Hallucinations: None Insight: Poor (to limited, concern she is guarded/minimizing) Judgement: Poor (recent overdose) Vital Signs (Past 24 Hours): Last Vital Signs Temp 37.7 C H 11/02/24 11:06 Pulse 63 11/02/24 11:06 Resp 16 11/02/24 11:06 BP 151/90 H 11/02/24 10:55 Pulse Ox 93 11/02/24 11:06 O2 Del Method Nasal Cannula 11/02/24 10:00 O2 Flow Rate 3 11/02/24 10:00 FiO2 50 11/01/24 08:12 Results & Data (PSY) Medications Administered Enoxaparin Sodium (Enoxaparin Inj 40 Mg/0.4 Ml Syr) 40 mg SQ PM LALO Stop: 11/28/24 23:16 Last Admin: 11/01/24 19:47 Dose: 40 mg Documented By: Admin: 10/31/24 20:18 Dose: 40 mg Documented By: Admin: 10/30/24 20:21 Dose: 40 mg Documented By: Admin: 10/30/24 01:16 Dose: 40 mg Documented By: CONNER Cefazolin Sodium (Ancef 2000mg) 2,000 mg in 15 mls @ 3.75 mls/min IV Q8H LALO Stop: 11/06/24 12:59 Last Admin: 11/02/24 03:10 Dose: 3.75 mls/min Documented By: Admin: 11/01/24 19:47 Dose: 3.75 mls/min Documented By: Admin: 11/01/24 13:52 Dose: 3.75 mls/min Documented By: FABRICIO [place] [address] [facility] Intl Hosp Care Lvl 3 Patient Type New History Comprehensive Exam Comprehensive Medical Decision Making High Complexity Diagnoses Major depression, recurrent F33.9 Anxiety F41.9 Suicide attempt by multiple drug overdose T50.912A Encounter type: initial encounter Cannabis abuse F12.10 Chronic pain G89.29
[2024-11-02] MEDS: PANTOprazole 40 MG TAB PO SCH (20:05)
--- NOTE | 2024-11-02 21:14 | Hospitalist Progress Note ---
Date of Service November 02, 2024 Assessment & Plan (1) Intentional overdose: Plan: suiscide by Beta Joleen overdose (2) Shock: (3) Seizure: (4) Respiratory failure: Plan Intentional overdose of beta blockers in a 64 yo female: she needed to be admitted to the intensive care unit/emergency intubation in the field, intentional Rx multidrug drug overdose/shock secondary to medicine with hypotension Patient required pressor support Echo, normal LV function, CT scan of head is negative Sputum culture showed MSSA: initially treated on ceftriaxone but due to fevers, switched to cefazolin on 11/01 Extubated on 10/31 Off pressor support on 11/01 Afebrile on 11/02 continue pressor support as per icu team Urine drug screen positive for marijuana, with other testing negative Alcohol level 74.8 Salicylates negative and acetaminophen negative Initial lactate 3.1, with follow-up 2.7, and will follow serially COVID testing negative Pantoprazole 40 mg IV twice daily Zofran 4 mg IV every 6 hours as needed T multiple out pt providers have ordered similar meds, med recc at [facility] Admission and Anticipated Discharge Date Admission Date: October 29, 2024 Subjective Patient reports to be breathing better. Her family states she looks better. Physical Exam Physical Exam: pt is awake on nasal cannula Improved breath sounds cardiac is regular Results & Data Results & Data Vital Signs (Past 12 Hours) Vital Signs Temp Pulse Pulse Resp BP BP Pulse Ox 11/02/24 20:32 36.5 C 60 18 150/90 H 93 11/02/24 20:30 11/02/24 19:27 36.8 C 62 19 157/93 H 95 11/02/24 16:04 65 20 151/90 H 96 11/02/24 16:02 36.8 C 11/02/24 16:00 11/02/24 15:00 62 21 93 11/02/24 14:00 62 19 93 11/02/24 13:00 64 18 92 11/02/24 12:06 37.5 C 66 13 91 11/02/24 11:06 37.7 C H 63 16 93 11/02/24 10:55 151/90 H 11/02/24 10:55 151/90 H 11/02/24 10:53 160/74 H 11/02/24 10:51 37.7 C H 62 20 89 L 11/02/24 10:00 37.6 C H 62 15 97 11/02/24 10:00 99 11/02/24 09:56 138/76 11/02/24 09:56 138/76 11/02/24 09:54 37.6 C H 63 15 93 Pulse Ox O2 Del Method O2 Del Method O2 Flow Rate 11/02/24 20:32 Room Air 11/02/24 20:30 Room Air 11/02/24 19:27 Room Air 11/02/24 16:04 Room Air 11/02/24 16:02 11/02/24 16:00 96 Room Air 11/02/24 15:00 11/02/24 14:00 11/02/24 13:00 11/02/24 12:06 11/02/24 11:06 11/02/24 10:55 11/02/24 10:55 11/02/24 10:53 11/02/24 10:51 11/02/24 10:00 11/02/24 10:00 Nasal Cannula 3 11/02/24 09:56 11/02/24 09:56 11/02/24 09:54 PG Care Time/CCT Total # of Minutes Spent Total Time Spent with Patient: Total time spent is greater than 50% in coordination of care (as documented) at patient's floor/unit and/or counseling patient: Coding Level of Care Code 63378 SUB INP/OBS CARE 2/35MIN Diagnoses Intentional overdose T50.902A Shock R57.9 Seizure R56.9 Respiratory failure J96.01; J96.02 Chronicity: acute Respiratory failure complication: hypoxia and hypercapnia (4) Respiratory failure Chronicity: acute Respiratory failure complication: hypoxia and hypercapnia Qualified Code(s): J96.01 - Acute respiratory failure with hypoxia; J96.02 - Acute respiratory failure with hypercapnia
[2024-11-03 07:29] LABS: Hemoglobin 12.1 g/dl (12.0-16.0); Mean Corpuscular Hgb Conc 34.6 g/dL (32.0-36.0); Mean Corpuscular Volume 86.8 fL (80.0-100.0); Mean Platelet Volume 9.3 fL (9.4-12.4); Platelet Count 289 K/uL (130-400); RDW Coefficient of Variation 12.1 % (11.5-14.5); RDW Standard Deviation 38.6 fL (36.4-46.3); Red Blood Count 4.03 M/uL (4.20-5.40); White Blood Count 7.16 K/ul (4.8-10.8)
[2024-11-03 07:51] LABS: BUN Creatinine Ratio 13.6 (10-20); C Reactive Protein 3.13 mg/dl (0-0.5); Calcium 9.8 mg/dl (8.6-10.3); Creatinine Clr Calc Pharmacy 78.2 ml/min; Potassium 3.8 mmol/L (3.5-5.1)
[2024-11-03] MEDS: ALBUT/IPRATROP 3MG/0.5MG NEB 3 ML VIAL NEB PRN (20:04)
[2024-11-03] MEDS: SODIUM CHLORIDE 0.65% NA SOLN 45 ML (OCEAN) STA (22:35)
--- NOTE | 2024-11-04 05:41 | Hospitalist Progress Note ---
Date of Service November 03, 2024 Assessment & Plan (1) Intentional overdose: Plan: suicide by Beta Joleen overdose (2) Shock: (3) Seizure: (4) Respiratory failure: Plan Intentional overdose of beta blockers in a 64 yo female: she needed to be admitted to the intensive care unit/emergency intubation in the field, intentional Rx multidrug drug overdose/shock secondary to medicine with hypotension Patient required pressor support Echo, normal LV function, CT scan of head is negative Sputum culture showed MSSA: initially treated on ceftriaxone but due to fevers, switched to cefazolin on 11/01 Extubated on 10/31 Off pressor support on 11/01 Afebrile on 11/02 On PCU, afebrile on 11/03 Urine drug screen positive for marijuana, with other testing negative Alcohol level 74.8 Salicylates negative and acetaminophen negative Initial lactate 3.1, with follow-up 2.7, and will follow serially COVID testing negative Pantoprazole 40 mg IV twice daily Zofran 4 mg IV every 6 hours as needed T multiple out pt providers have ordered similar meds, med recc at [facility] Admission and Anticipated Discharge Date Admission Date: October 29, 2024 Subjective 64 yo female reports no new symptoms. Physical Exam Physical Exam: pt is awake on nasal cannula Improved breath sounds cardiac is regular Results & Data Results & Data Vital Signs (Past 12 Hours) Vital Signs Temp Pulse Pulse Resp BP BP Pulse Ox 11/04/24 03:11 36.7 C 65 20 108/77 94 11/04/24 00:07 36.4 C L 65 18 127/77 95 11/03/24 23:53 55 L 11/03/24 21:56 11/03/24 20:04 18 94 11/03/24 19:09 36.9 C 66 18 125/83 96 O2 Del Method 11/04/24 03:11 Room Air 11/04/24 00:07 Room Air 11/03/24 23:53 11/03/24 21:56 Room Air 11/03/24 20:04 Room Air 11/03/24 19:09 Room Air PG Care Time/CCT Total # of Minutes Spent Total Time Spent with Patient: Total time spent is greater than 50% in coordination of care (as documented) at patient's floor/unit and/or counseling patient: Coding Level of Care Code 63599 SUB INP/OBS CARE 2/35MIN Diagnoses Intentional overdose T50.902A Shock R57.9 Seizure R56.9 Respiratory failure J96.01; J96.02 Chronicity: acute Respiratory failure complication: hypoxia and hypercapnia (4) Respiratory failure Chronicity: acute Respiratory failure complication: hypoxia and hypercapnia Qualified Code(s): J96.01 - Acute respiratory failure with hypoxia; J96.02 - Acute respiratory failure with hypercapnia
[2024-11-04] MEDS: hydrOXYzine HCl 25 MG TAB PO STA (14:28)
[2024-11-04] MEDS: LORazepam 0.5 MG TAB PO STA (18:04)
[2024-11-04] MEDS: LIDOCAINE 5% 1 PATCH TD STA (18:33)
[2024-11-04] MEDS: hydrOXYzine HCl 25 MG TAB PO PRN (20:40)
--- NOTE | 2024-11-04 22:51 | Hospitalist Progress Note ---
Date of Service November 04, 2024 Assessment & Plan (1) Intentional overdose: Plan: suicide by Beta Joleen overdose (2) Shock: (3) Seizure: (4) Respiratory failure: Plan #Intentional overdose of beta blockers in a 64 yo female: she needed to be admitted to the intensive care unit/emergency intubation in the field, intentional Rx multidrug drug overdose/shock secondary to medicine with hypotension Patient required pressor support Echo, normal LV function, CT scan of head is negative Sputum culture showed MSSA: initially treated on ceftriaxone but due to fevers, switched to cefazolin on 11/01 Extubated on 10/31 Off pressor support on 11/01 Since 11/02 patient has been afebrile Will discharge patient tomorrow Ordered lidocaine for her pain. #Urine drug screen positive for marijuana, with other testing negative Alcohol level 74.8 Salicylates negative and acetaminophen negative Initial lactate 3.1, with follow-up 2.7, and will follow serially COVID testing negative Pantoprazole 40 mg IV twice daily Zofran 4 mg IV every 6 hours as needed Anxiety ordered hydroxyzine which did not control her symptoms. This was increased to lorazepam as a one time dose. multiple out pt providers have ordered similar meds, med recc at [facility] Admission and Anticipated Discharge Date Admission Date: October 29, 2024 Subjective Patient complaining of pain which is chronic. States her food does not taste good. Also reports feeling anxious. Physical Exam Physical Exam: pt is awake on nasal cannula Improved breath sounds cardiac is regular Results & Data Results & Data Vital Signs (Past 12 Hours) Vital Signs Temp Pulse Pulse Resp BP Pulse Ox O2 Del Method 11/04/24 20:59 75 18 95 Room Air 11/04/24 19:58 36.8 C 72 18 129/82 96 Room Air 11/04/24 19:30 Room Air 11/04/24 15:03 76 11/04/24 14:54 36.8 C 70 16 161/92 H 96 Room Air PG Care Time/CCT Total # of Minutes Spent Total Time Spent with Patient: Total time spent is greater than 50% in coordination of care (as documented) at patient's floor/unit and/or counseling patient: Coding Level of Care Code 82433 SUB INP/OBS CARE 3/50MIN Diagnoses Intentional overdose T50.902A Shock R57.9 Seizure R56.9 Respiratory failure J96.01; J96.02 Chronicity: acute Respiratory failure complication: hypoxia and hypercapnia (4) Respiratory failure Chronicity: acute Respiratory failure complication: hypoxia and hypercapnia Qualified Code(s): J96.01 - Acute respiratory failure with hypoxia; J96.02 - Acute respiratory failure with hypercapnia
[2024-11-05] MEDS: DOXYCYCLINE HYCLATE 100 MG CAP PO SCH (10:32)
[2024-11-05] MEDS: FLUDROCORTISONE ACETATE 0.1 MG TAB PO SCH (10:37)
--- NOTE | 2024-11-05 11:44 | Discharge Summary ---
Discharge Summary Date of Service November 05, 2024 Principal Dx & Hospital Course #1 = Principal Diagnosis (1) Intentional overdose: suicide by Beta Joleen overdose (2) Shock: (3) Seizure: (4) Respiratory failure: Plan #Intentional overdose of beta blockers in a 64 yo female: she needed to be admitted to the intensive care unit/emergency intubation in the field, intentional Rx multidrug drug overdose/shock secondary to medicine with hypotension Patient required pressor support Echo, normal LV function, CT scan of head is negative Sputum culture showed MSSA: initially treated on ceftriaxone but due to fevers, switched to cefazolin on 11/01 Extubated on 10/31 Off pressor support on 11/01 Since 11/02 patient has been afebrile Will discharge patient tomorrow Ordered lidocaine for her pain. #Urine drug screen positive for marijuana, with other testing negative Alcohol level 74.8 Salicylates negative and acetaminophen negative Initial lactate 3.1, with follow-up 2.7, and will follow serially COVID testing negative Pantoprazole 40 mg IV twice daily Zofran 4 mg IV every 6 hours as needed Anxiety ordered hydroxyzine which did not control her symptoms. This was increased to lorazepam as a one time dose. multiple out pt providers have ordered similar meds, med recc at [facility] Admission HPI Per Admitting Provider The patient is a 64-year-old female with past medical history including seizure seizure disorder, GERD, anxiety/depression, mixed urinary incontinence, headache, and hypertension. She reportedly had a argument with family, went home, left a suicide note, and took excessive unknown doses of medications propranolol and Seroquel. She was intubated in the field, brought to the em ergency department for assessment. Emergency department in contact with toxicology department in [place], began emergency treatment. In the emergency department patient was placed on bicarbonate drip, epinephrine drip, ventilator management, and laboratories for CBC with differential, chemistry, urine drug screen and urinalysis. Patient remained unresponsive while in emergency department, was referred to [facility] service for admission to the ICU for ongoing care Discharge Plan Discharge Items Patient Disposition: Transfer Behavioral Health Fac Reason For Visit: DRUG OD, INTUBATED IN FIELD Discharge Diagnosis: drug overdose Activity: Resume your previous activity Non-emergency contact: Primary Care Provider Call non-emergency contact if: you have any medication questions Follow-up/Referrals: Florecita Tucker, DO [Primary Care Provider] - Diet: Regular Addtl Attending Provider Instructions: Complete doxycycline last dose wll be PM of 11/07 Being transferred to Inpatient psych. Pending Studies at Discharge: No Stand-Alone Forms: My [facility] Medications and DC Order Prescriptions: New doxycycline hyclate 100 mg Capsule 100 mg PO BID 5 Days Qty: 10 0RF fludrocortisone 0.1 mg tablet 0.1 mg PO DAILY Qty: 30 0RF Continued magnesium oxide 400 mg (241.3 mg magnesium) tablet 400 mg PO DAILY meloxicam 15 mg tablet 15 mg PO DAILY riboflavin (vitamin B2) 100 mg tablet 100 mg PO DAILY folic acid 1 mg tablet 1 mg PO DAILY pantoprazole 40 mg tablet,delayed release (DR/EC) 40 mg PO DAILY sumatriptan succinate 25 mg tablet See Rx Instructions PO .COMPLEX Rx Instructions: take 1 tab at onset of headache; if no relief may repeat 1 tab after at least 2 hrs; max = 4 tabs/24 hr PO Held gabapentin 400 mg capsule 400 mg PO TID Hold Instructions: Resume on 11/08/24. until cleared by psych paroxetine HCl 40 mg tablet 40 mg PO DAILY Hold Instructions: Resume on 11/08/24. until cleared by psych lamotrigine 25 mg tablet 25 mg PO DAILY Hold Instructions: Resume on 11/08/24. until cleared by psych Discharge Orders: Discharge Order (Routine); Ordered 11/05/24 Ordered By: Long Soler Admission Data Admit Date/Time: 10/29/24 21:20 Attending Provider: Long Soler Admit Provider: Dale Wall Primary Care Provider: Florecita Tucker Other Providers: Jono Garcia; Dale Wall; Winifred Toure; Artie Johnston; Rossy Hancock; Caroline Reyna; Carlos Schultz; Sulma Mancera; Tawanna Ponce Other Interventions: Discharge Summary Assessment (RN) Last Done: 11/05/24 10:59 Hospital Stay Data Consultations 10/29/24 19:05 Consult Finishing Technician Routine 10/29/24 20:19 ED Decision to Admit Stat 10/29/24 23:17 Consult Finishing Technician Routine 10/31/24 10:00 Consult Mental Health [Consult Psychiatry] Routine Diagnostic Imagining Performed 10/29/24 18:21 CT head/brain wo con Stat Pending Results Patient Have Any Pending Studies at Discharge: No Discharge Instructions Given to Patient (Per Discharging Provider) Complete doxycycline last dose wll be PM of 11/07 Being transferred to Inpatient psych. Coding Diagnoses Intentional overdose T50.902A Shock R57.9 Seizure R56.9 Respiratory failure J96.01; J96.02 Chronicity: acute Respiratory failure complication: hypoxia and hypercapnia
== END 2024-11-05 12:47 | DRG 917 ==
LOC: ED 18:28 → 1E 21:20 → SUATTDRO 21:20 → 1E 22:00 → 4W 11-02 20:29
DX: F41.9 Anxiety disorder, unspecified; R50.9 Fever, unspecified; K21.9 Gastro-esophageal reflux disease without esophagitis; R00.1 Bradycardia, unspecified; B95.61 Methicillin susceptible Staphylococcus aureus infection as the cause of diseases classified elsewhere; Y90.3 Blood alcohol level of 60-79 mg/100 ml; R41.0 Disorientation, unspecified; Z79.899 Other long term (current) drug therapy; T14.91XA Suicide attempt, initial encounter; F12.10 Cannabis abuse, uncomplicated; G89.29 Other chronic pain; F10.920 Alcohol use, unspecified with intoxication, uncomplicated; I10 Essential (primary) hypertension; J96.00 Acute respiratory failure, unspecified whether with hypoxia or hypercapnia; F33.9 Major depressive disorder, recurrent, unspecified; T44.7X2A Poisoning by beta-adrenoreceptor antagonists, intentional self-harm, initial encounter; Z88.5 Allergy status to narcotic agent; I95.9 Hypotension, unspecified; T43.592A Poisoning by other antipsychotics and neuroleptics, intentional self-harm, initial encounter; G93.40 Encephalopathy, unspecified; R57.9 Shock, unspecified; G40.909 Epilepsy, unspecified, not intractable, without status epilepticus

== ENCOUNTER 2024-11-05 09:27 | Inpatient (IN) ==
[2024-11-05] MEDS ORDERED: BISMUTH SUBSALICYLATE 262 MG CHEW PO PRN (09:53)
[2024-11-05] MEDS ORDERED: MAGNESIUM HYDROXIDE SUSP 30 ML UDC PO PRN (09:53)
[2024-11-05] MEDS ORDERED: hydrOXYzine HCl 25 MG TAB PO PRN ×2 (09:53)
[2024-11-05] MEDS ORDERED: SODIUM CHLORIDE 0.65% NA SOLN 45 ML (OCEAN) PRN (09:53)
--- NOTE | 2024-11-05 13:22 | History & Physical ---
Date of Service November 05, 2024 Impression / Recommendations Impression NOHEMI IBARRA is a 64-year-old woman who currently lives in [place], has a history of anxiety and depression, and was admitted on 11/05/24 12:47 on a 201 voluntary commitment for suicide attempt via overdose of propranolol, quetiapine and lamictal) requiring medical admission. Diagnostically consistent with unspecified depression with differential including MDD vs BPAD current depressive episode vs alcohol-induced depressive disorder as well as unspecified anxiety. Continue to hold off on restarting scheduled psychiatric medication at this time given some nausea today, likely from starting po antibiotics, and orthostatic hypotension. Will explore additional options as diagnostic clarification and symptom targets are identified. Her alcohol use history and negative consequences suggests possible substance use disorder. Motivational interviewing was done as a brief intervention. Intervention was greater than 5 minutes in length and included assessing readiness to quit, advice on how to reduce or abstain and to set a specific goal for this hospitalization. workers' compensation commissioner will also assist in anticipating barriers to reducing or abstaining from substance use and in problem-solving for solutions to those problems while arranging for referral to appropriate treatment. The patient is in contemplative stage with regards to transtheoretical model of change. Recommended decreasing consumption due to disinhibiting effects and potential for worsening psychiatric symptoms. Overall I spent a total of 75 minutes for this admission including review of chart records, review of labwork, direct evaluation of the patient, counseling the patient, ordering medication, risk assessment, discussion with the psychiatric liason RN and documentation in the electronic health record. (1) Suicide attempt by multiple drug overdose: Encounter type: initial encounter Qualified Code(s): T50.912A - Poisoning by multiple unspecified drugs, medicaments and biological substances, intentional self-harm, initial encounter (2) Intentional overdose: (3) Depression, unspecified: (4) Anxiety: (5) Chronic pain: (6) Alcohol use disorder: Plan 11/05/2024: The patient was admitted to the [facility] ([facility] unit) on q15 min checks (behavioral with suicide precautions) for safety. The patient will participate in group, recreational, and milieu therapies and will be offered additional individual and family sessions as clinically appropriate. -Continue prior to admission medications: protonix, doxcycline (through 11/07/24), lidocaine patch for left hip and fludrocortisone 0.1mg daily for orthostatic hypotension -Zofran prn for nausea Inventory Assets Strengths: supportive relationships, willing to get treatment Needs: safety and stabilization, medication adjustment, additional coping skills, increased outpatient services Suicide Risk Level Suicide Risk Level: High-Moderate (q15 min suicide checks) (s/p serious suicide attempt but now reporting glad to be alive and feels safe in the hospital and able to ask for support) Risk Factors Assessment Male: No : Yes Do You Have Access To A Gun?: Yes (possibly through family members) Health Problems: Yes (chronic pain) Mental Health Diagnoses: Yes Substance Use Disorders: Yes Previous Attempt: Yes Family History of Suicide: No Previous Psychiatric Hospitalization: No Hopelessness: No Protective Factors Assessment Stable Relationships: Yes Supportive Family: Yes Psychiatric History Identifying Data NOHEMI IBARRA is a 64-year-old woman who currently lives in [place], has a history of anxiety and depression, and was admitted on 11/05/24 12:47 on a 201 voluntary commitment for suicide attempt via overdose of propranolol, quetiapine and lamictal) requiring medical admission. Chief Complaint "I don't even know how it happened or how my mind went there". History of Present Illness Nohemi presents for psychiatric admission following medical admission for suicide attempt via polypharmacy overdose. She reports having no recollection of the suicide attempt rather recalls being out for dinner and drinking multiple whiskey beverages and then waking up at the hospital. She had left a suicide note and texted empty pill bottles to a friend asking the friend to take her dog leading to EMS response, intubation and subsequent ICU and medical stabilization. Currently she reports being glad to be alive and denies current SI. She is hopeful inpatient hospitalization can help her determine how she got to the point of attempting suicide noting "I can't figure out what would have triggered me". Acknowledges struggling with her mood at times including periods of depression and increased anger and impulsivity, especially when drinking hard liquor. Feels her family is an excellent support and loves her dog. States she cannot imagine ever leaving her dog. Reviewed suicide note which states: "So sorry I'm quite the disappointment to my family. You don't know me. Don't director of global sales me!! I've hated my life from [place]!! NO MORE BLACKSHEEP NOW. NO MORE WORRIES. I LOVED TOO HARD!" Nohemi gives permission for additional collateral from her sister. Her sister provides additional collateral that Nohemi often becomes more emotionally labile with outbursts of anger when she drinks any type of alcohol. Family collateral also notable for concerns for alcohol use and that Nohemi has struggled to maintain any type of consistent employment due to periods of emotional lability. Nohemi seems to go through 1-2 week periods of depression followed by periods of more elevated mood with increased irritability. Has a lot of "ups and downs". Family wonders if she uses alcohol and medications to cope with pain and mood symptoms and also seems to struggle with not overusing medications or yoder bstances. Additional information per initial psychiatry consult note by Dr. Schultz on 11/02/2024: "Patient reports feeling isolated and felt like a burden on her family. "Did not know how to reach out to my family". Complains of racing thoughts and difficulty functioning. Reports being under a "lot of stress" and if she told the family that she would be "Sand". Often feels "nervous" and ruminates about financial worries. She denies having low mood. Says she has been isolated for months. Reports escalating medical problems including chronic pain. "Did not want to be a burden". Complains of severed sciatic nerve. Reports having poor recall of what occurred. Remembers doing well that day and was with her nieces and sister. In the evening they went to a country bar and had some drinks and food. She reports being happy. She cannot remember what happened afterwards. She was told that she took 5 bottles of medications. She reports being confused taking medications from multiple doctors and had a 150 mg Seroquel and also 50 mg Seroquel. She denies current suicidal ideation. She reports goals of having better functioning and less racing thoughts. Reports s moking 1 joint of cannabis nightly. Drinks alcohol socially and has many sober days. Denies other drug use. Becomes tearful and feels bad for what her family had to go through regarding the overdose. Home psychiatric medications: Propranlol 10mg TID, Lamotrigine 50mg QD, Paroxetine 40mg QD, Quetiapine 50mg HS. Social history: Patient lives in the home owned by sister. Sister and other family members live close by and supportive. Moved to [place] from 3 years ago and previously lived in [place] for 20 years. Past SSI and recently having difficulty obtaining SSI here. Past outpatient psychiatry at [facility]. No past psychiatric hospitalizations. Some access to firearms through family members." Psychiatric ROS notable for possible history of hypomania. No current or known history of psychosis, PTSD, OCD nor eating disorder. Past Psychiatric History Current Psychiatric Diagnosis: depression, anxiety Outpatient Services: [facility] recently for psychiatry-did not find this helpful, no therapist Previous Psych Admissions: none Do You Have Access To A Gun?: Yes (possibly through family members) History of Previous Suicide Attempt: Yes (overdose leading to this admission) Past Medication Trials: lamictal, Seroquel, Paxil, propranolol Past Head Trauma/Neuro History recent seizure following intentional overdose Allergies Allergy/AdvReac Type Severity Reaction Status Date / Time oxycodone [From OxyContin] Allergy Hives Verified 09/27/24 10:44 Home Medications Medication Instructions Recorded Confirmed Type folic acid 1 mg tablet 1 mg PO DAILY 09/27/24 09/27/24 History gabapentin 400 mg capsule 400 mg PO TID 09/27/24 09/27/24 History lamotrigine 25 mg tablet 25 mg PO DAILY 09/27/24 09/27/24 History magnesium oxide 400 mg (241.3 mg 400 mg PO DAILY 09/27/24 09/27/24 History magnesium) tablet meloxicam 15 mg tablet 15 mg PO DAILY 09/27/24 09/27/24 History pantoprazole 40 mg tablet,delayed 40 mg PO DAILY 09/27/24 09/27/24 History release paroxetine HCl 40 mg tablet 40 mg PO DAILY 09/27/24 09/27/24 History riboflavin (vitamin B2) 100 mg 100 mg PO DAILY 09/27/24 09/27/24 History tablet sumatriptan succinate 25 mg tablet See Rx Instructions PO .COMPLEX 09/27/24 09/27/24 History doxycycline hyclate 100 mg capsule 100 mg PO BID 5 days #10 caps 11/05/24 Rx fludrocortisone 0.1 mg tablet 0.1 mg PO DAILY #30 tabs 11/05/24 Rx Alcohol History Hx of Alcohol Use Over the Past 12 Months: Yes concern that she may be minimizing her recent alcohol use based on collateral report Smoking Use Smoking Status: Never smoker Personal History Employment Status: Unemployed Beliefs That Will Affect Care: Cultural Patient History Medical History No significant past medical history Surgical History History of hip replacement S/P spinal surgery H/O breast augmentation History of tubal ligation Social History Smoking Status: Never smoker Preferred Language: Tanzanian Communication Ability: Effective Parking Supervisor Required: No Beliefs That Will Affect Care: Cultural Feels Safe at Home: Yes Assistive Devices: None Review of Systems Review of Systems: All systems reviewed & are unremarkable except as noted in HPI & below (nausea) Physical Exam Psychiatric: Orientation: alert and oriented x 3 Apperance: appropriately dressed and appropriately groomed Eye Contact: good eye contact Motor Behavior: no abnormal motor movements Speech: normal rate/rhythm/volume of speech Affect: euthymic affect (smiling, laughing at times); + mood not congruent with affect Mood: + depressed mood and + anxious mood Thought Process: + circumstantial thought process Thought Content: reality based without delusions (concern for some minimization ) Suicidal Thoughts: denies suicidal thoughts (bu s/p serious suicide attempt), denies suicidal plan and denies suicidal intent Homicidal Thoughts: denies homicidal thoughts Hallucinations: no auditory hallucinations and no visual hallucinations Cognition: remote memory grossly intact, attention grossly intact and language grossly intact; + recent memory not intact (not surrounding attempt) Estimated Intelligence: consistent with education level Insight: + limited insight Judgment: + limited judgement Exam Statement: A physical exam was performed on the medical floor by Dr. Soler for the purposes of medical clearance. I accept that physical as correct and adequate for the purposes of the inpatient physical exam. Results & Data (U) Current Inpatient Medications Current Inpatient Medications: Current Inpatient Medications Acetaminophen (Acetaminophen 325 Mg Tab) 650 mg PO Q4H PRN PRN Reason: Headache or Minor Fever Stop: 12/05/24 09:52 Al Hydrox/Mg Hydrox/Simethicone (Aluminum/Magnesium Susp 30 Ml Udc) 30 ml PO Q4H PRN PRN Reason: GI Upset Stop: 12/05/24 09:52 Bismuth Subsalicylate (Bismuth Subsalicylate 262 Mg Chew) 2 tab PO Q30M PRN PRN Reason: Loose Stool/Diarrhea Stop: 12/05/24 09:52 Hydroxyzine HCl (Hydroxyzine Hcl 25 Mg Tab) 50 mg PO HSZ PRN PRN Reason: Insomnia Stop: 12/05/24 09:52 Hydroxyzine HCl (Hydroxyzine Hcl 25 Mg Tab) 25 mg PO Q4H PRN PRN Reason: Anxiety Stop: 12/05/24 09:52 Magnesium Hydroxide (Magnesium Hydroxide Susp 30 Ml Udc) 30 ml PO DAILY PRN PRN Reason: Constipation Stop: 12/05/24 09:52 Sodium Chloride (Sodium Chloride 0.65% Na Soln 45 Ml ([place])) 1 - 2 sprays NA PRN PRN PRN Reason: Nasal Dryness/Congestion Stop: 12/05/24 09:52
[2024-11-05] MEDS: DOXYCYCLINE HYCLATE 100 MG CAP PO SCH (20:55)
[2024-11-05] MEDS: PANTOprazole 40 MG TAB PO SCH (20:55)
[2024-11-06] MEDS: ACETAMINOPHEN 325 MG TAB PO PRN (06:25)
--- NOTE | 2024-11-06 08:55 | Psychiatric Progress Note ---
Date of Service November 06, 2024 Impression / Recommendations Impression NOHEMI IBARRA is a 64-year-old woman who currently lives in [place], has a history of anxiety and depression, and was admitted on 11/05/24 12:47 on a 201 voluntary commitment for suicide attempt via overdose of propranolol, quetiapine and lamictal) requiring medical admission. Diagnostically consistent with unspecified depression with differential including MDD vs BPAD current depressive episode vs alcohol-induced depressive disorder as well as unspecified anxiety. A: Showing more anticipated affect (tearfulness) and able to speak more about potential recent stressors including argument with her sister prior to suicide attempt while reviewing suicide note and processing emotions related to this including her ongoing guilt. Concern for possible mood disorder like BPAD, she agrees to complete Mood Disorder questionnaire today especially given reference to at times possible grandiose delusion re: ability or sense she may fly away. Discussed medication treatment options in detail. Discussed risks, benefits and alternatives. Patient would like to start and consented to naltrexone for alcohol use cravings, mirtazapine for anxiety/depression/insomnia and duloxetine for depression/chronic pain. Likely will also start abilify pending MDQ for mood stabilization. Reviewed side effects including but not limited to: GI, BILLINGS, sexual side effects with duloxetine; need to avoid opioids/GI/liver changes with naltrexone; sedation/increased appetite with mirtazapine. Her alcohol use history and negative consequences suggests possible substance use disorder. Ongoing motivational interviewing was done today. She plans to avoid any future alcohol use, feels she will able to do this without additional support or need for residential or IOP dual diagnosis treatment. She is very open to and desires outpatient therapy. Also agreeable to use of naltrexone to help avoid cravings for alcohol. Overall, I spent a total of 65 minutes on this case including meeting with the patient, reviewing the chart, nursing report, multidisciplinary team meeting, orders, and documentation. (1) Suicide attempt by multiple drug overdose: (2) Intentional overdose: (3) Depression, unspecified: (4) Anxiety: (5) Chronic pain: (6) Alcohol use disorder: Plan 11/06/2024: -Start naltrexone 25mg daily -Start mirtazapine 15mg HS -Start duloxetine 20mg daily tomorrow AM -Discontinue fludrocortisone given sweating and improving BP -Given Mood Disorder Questionnaire/PHQ-9 to complete -ROIs edited to reflect her wish for family not to have access/information about the content of her suicide note 11/05/2024: The patient was admitted to the [facility] ([facility]) on q15 min checks (behavioral with suicide precautions) for safety. The patient will participate in group, recreational, and milieu therapies and will be offered additional individual and family sessions as clinically appropriate. -Continue prior to admission medications: protonix, doxcycline (through 11/07/24), lidocaine patch for left hip and fludrocortisone 0.1mg daily for orthostatic hypotension -Zofran prn for nausea Inventory Assets Strengths: supportive relationships, willing to get treatment Needs: safety and stabilization, medication adjustment, additional coping skills, increased outpatient services Suicide Risk Level Suicide Risk Level: High-Moderate (q15 min suicide checks) (s/p serious suicide attempt but now reporting glad to be alive and feels safe in the hospital and able to ask for support) Risk Factors Assessment Male: No : Yes Do You Have Access To A Gun?: Yes (possibly through family members) Health Problems: Yes (chronic pain) Mental Health Diagnoses: Yes Substance Use Disorders: Yes Previous Attempt: Yes Family History of Suicide: No Previous Psychiatric Hospitalization: No Hopelessness: No Protective Factors Assessment Stable Relationships: Yes Supportive Family: Yes Interval History Identifying Information NOHEMI IBARRA is a 64-year-old woman who currently lives in [place], has a history of anxiety and depression, and was admitted on 11/05/24 12:47 on a 201 voluntary commitment for suicide attempt via overdose of propranolol, quetiapine and lamictal) requiring medical admission. Chief Complaint "It's ok that I'm crying like this right?". Review of Systems Sleep Information Total Hours of Sleep: 13.75 Meal Information Percent Meal Consumed - Lunch: 100 Percent Meal Consumed - Dinner: 0 Subjective Subjective Patient was seen & assessed and interval progress reviewed with treatment team nursing and social work. Didn't attend any groups yesterday, slept all day and overnight for ~13 hours. Today awake and engaging in groups, interacting well with peers. Reports her mood is "good" today. Showed her the suicide note found when EMS responded. She was tearful, noted some shock that she wrote what she did. Denies having been stockpiling medications, rather recalls that she had been getting new medications scripts and was on a lot of medications. She felt like "too many". She is glad to be on fewer medications now. Reflected on her feeling during childhood of being different from her siblings but denies feeling like the "black sheep" now. She does recall fighting with her sister on the way home from the bar which she attributes to "drinking that Whiskey, I was mean, I think my sister thought I was on something else but it was just the alcohol". Given seeing the suicide note and her attempt she states her plan is to avoid all alcohol use moving forward "I'm done, absolutely, I never want to drink again after this". She doesn't feel she will have any problems stopping and doesn't feel she had an alcohol use disorder/problematic drinking but does feel she had "way too many" Whiskey drinks the night of her attempt. Reflects on recent stressors of her best friend in [place] experiencing significant losses and she felt unable to fully support her. Continues to feel that her family and local close friend are wonderful supports. Doesn't want to burden her family or make them feel guilty by her suicide note so plans to not share this with them. Continues to feel very grateful for being alive and having a "wonderful" family. Does note she disagrees with her sister related to her sister's feelings that their father can be "emotional abusive" to Nohemi, she feels her father is a wonderful father and just has "tough love". Agrees that therapy would be beneficial and agreeable to this. Reflected on how she is managing self-guilt associated with her suicide attempt. Reports ongoing night sweats, attributes this to being in the hospital and medication overdose. Describes having vivid dreams last night. Describes aroldo etimes having odd sense that "I could just take off and fly". She mentions recent losses of friends contributing to her depressed mood. Expresses a desire to start fresh and is open to medication changes and therapy. Having some congestion today which she attributes to dry air the hospital. Reviewed negative COVID test prior to admission to [facility]. Reviewed psychiatric history. She denies any access to guns-reports family may have guns at their homes but they are in safes and she wouldn't even know where to look for them. No prior suicide attempts until attempt leading to this hospitalization. Past med trials of Klonopin about 10 years ago and possible abilify and Latuda while in [place]. She thinks abilify was helpful. History of trazodone. Ongoing sleep difficulty, she notes Seroquel was very helpful for allowing her sleep even with her chronic pain. She asks for medication to help with sleep. Physical Exam Psychiatric Orientation: alert and oriented x 3 Apperance: appropriately dressed and appropriately groomed Eye Contact: good eye contact Motor Behavior: no abnormal motor movements Speech: normal rate/rhythm/volume of speech Affect: euthymic affect (smiling, laughing at times), + tearful affect and + labile affect Mood: + depressed mood Thought Process: + circumstantial thought process Thought Content: reality based without delusions Suicidal Thoughts: denies suicidal thoughts (bu s/p serious suicide attempt), denies suicidal plan and denies suicidal intent Homicidal Thoughts: denies homicidal thoughts Hallucinations: no auditory hallucinations and no visual hallucinations Cognition: recent memory grossly intact, remote memory grossly intact, attention grossly intact and language grossly intact Estimated Intelligence: consistent with education level Insight: + limited insight Judgment: + limited judgement Vital Signs (Past 24 Hours) Last Vital Signs Temp 36.9 C 11/06/24 06:35 Pulse 96 H 11/06/24 06:36 Resp 16 11/06/24 06:35 BP 132/87 11/06/24 06:36 Pulse Ox 99 11/05/24 13:10 O2 Del Method Room Air 11/05/24 13:10 Results & Data ([facility]) Current Inpatient Medications Current Inpatient Medications: Current Inpatient Medications Acetaminophen (Acetaminophen 325 Mg Tab) 650 mg PO Q4H PRN PRN Reason: Headache or Minor Fever Stop: 12/05/24 09:52 Last Admin: 11/06/24 06:25 Dose: 650 mg Al Hydrox/Mg Hydrox/Simethicone (Aluminum/Magnesium Susp 30 Ml Udc) 30 ml PO Q4H PRN PRN Reason: GI Upset Stop: 12/05/24 09:52 Bismuth Subsalicylate (Bismuth Subsalicylate 262 Mg Chew) 2 tab PO Q30M PRN PRN Reason: Loose Stool/Diarrhea Stop: 12/05/24 09:52 Doxycycline Hyclate (Doxycycline Hyclate 100 Mg Cap) 100 mg PO BID LALO Stop: 11/10/24 20:59 Last Admin: 11/05/24 20:55 Dose: 100 mg Fludrocortisone Acetate (Fludrocortisone Acetate 0.1 Mg Tab) 0.1 mg PO DAILY [facility] Stop: 12/06/24 08:59 Hydroxyzine HCl (Hydroxyzine Hcl 25 Mg Tab) 50 mg PO HSZ PRN PRN Reason: Insomnia Stop: 12/05/24 09:52 Hydroxyzine HCl (Hydroxyzine Hcl 25 Mg Tab) 25 mg PO Q4H PRN PRN Reason: Anxiety Stop: 12/05/24 09:52 Lidocaine (Lidocaine 5% 1 Patch) 1 patch TD QAM PRN PRN Reason: left hip pain Stop: 12/05/24 13:24 Magnesium Hydroxide (Magnesium Hydroxide Susp 30 Ml Udc) 30 ml PO DAILY PRN PRN Reason: Constipation Stop: 12/05/24 09:52 Miscellaneous (Remove Lidoderm Patch) 1 each N/A DAILY@2100 [facility] Stop: 12/05/24 20:59 Last Admin: 11/05/24 20:56 Dose: 1 each Ondansetron HCl (Ondansetron 2 Mg Od Tab) 2 mg PO Q8H PRN PRN Reason: Nausea And Vomiting Stop: 12/05/24 13:22 Pantoprazole Sodium (Pantoprazole 40 Mg Tab) 40 mg PO BID [facility] Stop: 12/05/24 20:59 Last Admin: 11/05/24 20:55 Dose: 40 mg Sodium Chloride (Sodium Chloride 0.65% Na Soln 45 Ml ([place])) 1 - 2 sprays NA PRN PRN PRN Reason: Nasal Dryness/Congestion Stop: 12/05/24 09:52 (1) Suicide attempt by multiple drug overdose Encounter type: initial encounter Qualified Code(s): T50.912A - Poisoning by multiple unspecified drugs, medicaments and biological substances, intentional self-harm, initial encounter
[2024-11-06] MEDS: FLUDROCORTISONE ACETATE 0.1 MG TAB PO SCH (10:08)
[2024-11-06] MEDS: NALTREXONE HCL 50 MG TAB PO SCH (13:12)
[2024-11-06] MEDS: ONDANSETRON 2 MG OD TAB PO PRN (17:38)
[2024-11-06] MEDS: ALUMINUM/MAGNESIUM SUSP 30 ML UDC PO PRN (19:04)
[2024-11-06] MEDS: MIRTAZAPINE TAB 15 MG TAB PO SCH (20:59)
--- NOTE | 2024-11-07 08:21 | Psychiatric Progress Note ---
Date of Service November 07, 2024 Impression / Recommendations Impression NILES IBARRA is a 64-year-old woman who currently lives in [place], has a history of anxiety and depression, and was admitted on 11/05/24 12:47 on a 201 voluntary commitment for suicide attempt via overdose of propranolol, quetiapine and lamictal) requiring medical admission. Diagnostically consistent with unspecified depression with differential including MDD vs BPAD current depressive episode vs BPAD mixed episode vs alcohol-induced depressive disorder as well as unspecified anxiety. A: Some mood lability but overall reporting positive mood and focused on desire to return home. Some ongoing concern for minimization vs limited insight into severity of her attempt. Encouragingly she is very motivated for outpatient therapy and CM and continues to communicate with her supports including her son and sister. She continues to deny any significant substance use issues though does remain focused on goal of avoiding any future alcohol use (continues to deny need and declines offers for any futher dual diagnosis or substance use tx). Discussed medication treatment options in detail. Discussed risks, benefits and alternatives. Patient would like to start and consented to Abilify for mood stabilization for suspect BPAD.Reviewed side effects including but not limited to: movement (TD, NMS), cardiac (QTc prolongation), and metabolic (stroke, insulin resistance) and necessity for fasting lipid and glucose labwork and AIMS done with score of 0. No significant congestion today, sense of dry airways improving with nasal saline. No further diaphoresis. Overall, I spent a total of 45 minutes on this case including meeting with the patient, reviewing the chart, nursing report, multidisciplinary team meeting, orders, and documentation. (1) Suicide attempt by multiple drug overdose: (2) Intentional overdose: (3) Depression, unspecified: (4) Anxiety: (5) Chronic pain: (6) Alcohol use disorder: Plan 11/07/2024: -Start abilify 5mg HS -Fasting lipid panel, HbA1c, Vit D and Vit B12 tomorrow AM 11/06/2024: -Start naltrexone 25mg daily -Start mirtazapine 15mg HS -Start duloxetine 20mg daily tomorrow AM -Discontinue fludrocortisone given sweating and improving BP -Given Mood Disorder Questionnaire/PHQ-9 to complete -ROIs edited to reflect her wish for family not to have access/information about the content of her suicide note 11/05/2024: The patient was admitted to the [facility] ([facility] inpatient mental health unit) on q15 min checks (behavioral with suicide precautions) for safety. The patient will participate in group, recreational, and milieu therapies and will be offered additional individual and family sessions as clinically appropriate. -Continue prior to admission medications: protonix, doxcycline (through ), lidocaine patch for left hip and fludrocortisone 0.1mg daily for orthostatic hypotension -Zofran prn for nausea Inventory Assets Strengths: supportive relationships, willing to get treatment Needs: safety and stabilization, medication adjustment, additional coping skills, increased outpatient services Suicide Risk Level Suicide Risk Level: Moderate (q15 min suicide checks) (s/p serious suicide attem pt but now reporting glad to be alive and feels safe in the hospital and able to ask for support) Risk Factors Assessment Male: No : Yes Do You Have Access To A Gun?: No Health Problems: Yes (chronic pain) Mental Health Diagnoses: Yes Substance Use Disorders: Yes Previous Attempt: Yes Family History of Suicide: No Previous Psychiatric Hospitalization: No Hopelessness: No Protective Factors Assessment Stable Relationships: Yes Supportive Family: Yes Interval History Identifying Information NILES IBARRA is a 64-year-old woman who currently lives in [place], has a history of anxiety and depression, and was admitted on 11/05/24 12:47 on a 201 voluntary commitment for suicide attempt via overdose of propranolol, quetiapine and lamictal) requiring medical admission. Chief Complaint "OK, I slept really well". Review of Systems Sleep Information Total Hours of Sleep: 7 Meal Information Percent Meal Consumed - Breakfast: 25 Percent Meal Consumed - Lunch: 75 Percent Meal Consumed - Dinner: 0 Subjective Subjective Patient was seen & assessed and interval progress reviewed with nursing and social work. Rated her mood last evening as "hopeful". Slept for 7 hours last evening. Prior to bedtime was asking about Ambien and told RN this had been discussed (it had not been). Today expresses frustration with potential prolonged length of stay as she is hopeful to leave by the end of the week at the latest. Met with new outpatient CM. Motivated for therapy. Feels her mood is "good". Slept well with mirtazapine, denies any side effects from new psychiatric medications. Didn't complete Mood Disorder Questionnaire but agreeable to trying to do this again today. She does feel she's had hypomania vs [place] in the past. Wants to start Abilify for mood stabilization. Discussed goal of trying to minimize polypharmacy and focusing on use of naltrexone, mirtazapine, duloxetine and ab ilify. Continues to have chronic hip pain. Appetite improving today. Physical Exam Psychiatric Orientation: alert and oriented x 3 Apperance: appropriately dressed and appropriately groomed Eye Contact: good eye contact Motor Behavior: no abnormal motor movements Speech: normal rate/rhythm/volume of speech Affect: euthymic affect (smiling, laughing at times), + labile affect and + irritable affect Mood: + anxious mood Thought Process: + circumstantial thought process Thought Content: + preoccupation Suicidal Thoughts: denies suicidal thoughts (bu s/p serious suicide attempt), denies suicidal plan and denies suicidal intent Homicidal Thoughts: denies homicidal thoughts Hallucinations: no auditory hallucinations and no visual hallucinations Cognition: recent memory grossly intact, remote memory grossly intact, attention grossly intact and language grossly intact Estimated Intelligence: consistent with education level Insight: + limited insight Judgment: + limited judgement Vital Signs (Past 24 Hours) Last Vital Signs Temp 36.9 C 11/07/24 06:35 Pulse 118 H 11/07/24 06:36 Resp 18 11/07/24 06:35 BP 123/79 11/07/24 06:36 Pulse Ox 99 11/05/24 13:10 O2 Del Method Room Air 11/05/24 13:10 [facility] Current Inpatient Medications Current Inpatient Medications: Current Inpatient Medications Acetaminophen (Acetaminophen 325 Mg Tab) 650 mg PO Q4H PRN PRN Reason: Headache or Minor Fever Stop: 12/05/24 09:52 Last Admin: 11/06/24 06:25 Dose: 650 mg Al Hydrox/Mg Hydrox/Simethicone (Aluminum/Magnesium Susp 30 Ml Udc) 30 ml PO Q4H PRN PRN Reason: GI Upset Stop: 12/05/24 09:52 Last Admin: 11/06/24 19:04 Dose: 30 ml Bismuth Subsalicylate (Bismuth Subsalicylate 262 Mg Chew) 2 tab PO Q30M PRN PRN Reason: Loose Stool/Diarrhea Stop: 12/05/24 09:52 Doxycycline Hyclate (Doxycycline Hyclate 100 Mg Cap) 100 mg PO BID LALO Stop: 11/10/24 20:59 Last Admin: 11/06/24 20:58 Dose: 100 mg Duloxetine HCl (Duloxetine Hcl 20 Mg Cap) 20 mg PO QAM LALO Stop: 12/07/24 08:59 Lidocaine (Lidocaine 5% 1 Patch) 1 patch TD QAM PRN PRN Reason: left hip pain Stop: 12/05/24 13:24 Magnesium Hydroxide (Magnesium Hydroxide Susp 30 Ml Udc) 30 ml PO DAILY PRN PRN Reason: Constipation Stop: 12/05/24 09:52 Mirtazapine (Mirtazapine Tab 15 Mg Tab) 15 mg PO HS LALO Stop: 12/06/24 21:59 Last Admin: 11/06/24 20:59 Dose: 15 mg Miscellaneous (Remove Lidoderm Patch) 1 each N/A DAILY@2100 LALO Stop: 12/05/24 20:59 Last Admin: 11/06/24 20:59 Dose: 1 each Naltrexone HCl (Naltrexone Hcl 50 Mg Tab) 25 mg PO DAILY LALO Stop: 12/06/24 12:29 Last Admin: 11/06/24 13:12 Dose: 25 mg Ondansetron HCl (Ondansetron 2 Mg Od Tab) 2 mg PO Q8H PRN PRN Reason: Nausea And Vomiting Stop: 12/05/24 13:22 Last Admin: 11/06/24 17:38 Dose: 2 mg Pantoprazole Sodium (Pantoprazole 40 Mg Tab) 40 mg PO BID LALO Stop: 12/05/24 20:59 Last Admin: 11/06/24 20:59 Dose: 40 mg Sodium Chloride (Sodium Chloride 0.65% Na Soln 45 Ml ([place])) 1 - 2 sprays NA PRN PRN PRN Reason: Nasal Dryness/Congestion Stop: 12/05/24 09:52 Mental Health & Subst Abuse Tx Therapist Name of Therapist: Corin Watters Therapist's Date of Therapist Appointment: 11/16/23 Time of Therapist Appointment: 1000 Therapy Appointment Comment: [address] [place] [address] Therapist Release of Information: Obtained, Reviewed and Signed (1) Suicide attempt by multiple drug overdose Encounter type: initial encounter Qualified Code(s): T50.912A - Poisoning by multiple unspecified drugs, medicaments and biological substances, intentional self-harm, initial encounter
[2024-11-07] MEDS: DULoxetine HCL 20 MG CAP PO SCH (09:06)
[2024-11-07] MEDS: LIDOCAINE 5% 1 PATCH TD PRN (09:48)
[2024-11-07] MEDS: ARIPiprazole 5 MG TAB PO SCH (21:17)
[2024-11-08 08:51] LABS: Chol HDL Ratio 5.4 (0-5)
--- NOTE | 2024-11-08 08:59 | Psychiatric Progress Note ---
Date of Service November 08, 2024 Impression / Recommendations Impression NILES IBARRA is a 64-year-old woman who currently lives in [place], has a history of anxiety and depression, and was admitted on 11/05/24 12:47 on a 201 voluntary commitment for suicide attempt via overdose of propranolol, quetiapine and lamictal) requiring medical admission. Diagnostically consistent with unspecified depression with differential including MDD vs BPAD current depressive episode vs BPAD mixed episode vs alcohol-induced depressive disorder as well as unspecified anxiety. A: Mood improving, less anxiety. Still with some sleep difficulty. More expansive thought process today, monitoring to ensure no hypomania. Mood Disorder Questionnaire reviewed and consistent with diagnosis of BPAD. She agrees to further titration of abilify for mood stabilization. Labwork reviewed and notable for nml HbA1c, elevated TGs/cholesterol/LDL (should discuss potential for need for statin with PCP), low Vit D. Overall, I spent a total of 50 minutes on this case including meeting with the patient, reviewing the chart, nursing report, multidisciplinary team meeting, orders, and documentation. (1) Bipolar affective disorder, current episode mixed: (2) Suicide attempt by multiple drug overdose: (3) Intentional overdose: (4) Depression, unspecified: (5) Anxiety: (6) Chronic pain: (7) Alcohol use disorder: Plan 11/08/2024: -Increase abilify to 15mg HS -Start Vit D supplementation 11/07/2024: -Start abilify 5mg HS -Fasting lipid panel, HbA1c, Vit D and Vit B12 tomorrow AM 11/06/2024: -Start naltrexone 25mg daily -Start mirtazapine 15mg HS -Start duloxetine 20mg daily tomorrow AM -Discontinue fludrocortisone given sweating and improving BP -Given Mood Disorder Questionnaire/PHQ-9 to complete -ROIs edited to reflect her wish for family not to have access/information about the content of her suicide note 11/05/2024: The patient was admitted to the [facility] ([facility] mental health unit) on q15 min checks (behavioral with suicide precautions) for safety. The patient will participate in group, recreational, and milieu therapies and will be offered additional individual and family sessions as clinically appropriate. -Continue prior to admission medications: protonix, doxcycline (through 11/07/24), lidocaine patch for left hip and fludrocortisone 0.1mg daily for orthostatic hypotension -Zofran prn for nausea Inventory Assets Strengths: supportive relationships, willing to get treatment Needs: safety and stabilization, medication adjustment, additional coping skills, increased outpatient services Suicide Risk Level Suicide Risk Level: Moderate (q15 min suicide checks) (s/p serious suicide attempt but now reporting glad to be alive and feels safe in the hospital and able to ask for support) Risk Factors Assessment Male: No : Yes Do You Have Access To A Gun?: No Health Problems: Yes (chronic pain) Mental Health Diagnoses: Yes Substance Use Disorders: Yes Previous Attempt: Yes Family History of Suicide: No Previous Psychiatric Hospitalization: No Hopelessness: No Protective Factors Assessment Stable Relationships: Yes Supportive Family: Yes Interval History Identifying Information NILES IBARRA is a 64-year-old woman who currently lives in [place], has a history of anxiety and depression, and was admitted on 11/05/24 12:47 on a 201 voluntary commitment for suicide attempt via overdose of propranolol, quetiapine and lamictal) requiring medical admission. Chief Complaint "Struggled this morning due to nausea but I feel much better". Review of Systems Sleep Information Total Hours of Sleep: 6.5 Meal Information Percent Meal Consumed - Breakfast: 100 Percent Meal Consumed - Lunch: 90 Percent Meal Consumed - Dinner: 75 Subjective Subjective Patient was seen & assessed and interval progress reviewed with nursing. Visited with her son yesterday and this went well. Reported her mood as "10" and "excitement" last evening. Some nausea after taking antibiotic last evening. Intermittent BILLINGS. Today reports mood improvement over the afternoon as nausea resolved. Found Mylax prn very helpful. Completed antibiotic course. Reflects on feeling "regretful for not reaching out for help" prior to attempt as she noticed depression worsening though remains consistent regarding not having thought of SI prior to attempt. Feels hospitalization is increasingly beneficial as she learns more coping skills and this has caused her to reflect on her communication style and ways she wants to improve her relationship with her father. She also reflects on seeing multiple providers prior to attempt and having too many providers making medication changes. Moving forward she wants to try to see the same provider at [facility] when possible and then only have her new psychiatric provider manage her medications. She woke up around 4am and couldn't go back to sleep, she's hopeful she's sleep better tonight. No side effects from psychiatric medications so far. Physical Exam Psychiatric Orientation: alert and oriented x 3 Apperance: appropriately dressed and appropriately groomed Eye Contact: good eye contact Motor Behavior: no abnormal motor movements Speech: normal rate/rhythm/volume of speech (expansive) Affect: + anxious affect Mood: + depressed mood and + anxious mood Thought Process: + circumstantial thought process Thought Content: reality based without delusions Suicidal Thoughts: denies suicidal thoughts (but s/p serious suicide attempt), denies suicidal plan and denies suicidal intent Homicidal Thoughts: denies homicidal thoughts Hallucinations: no auditory hallucinations and no visual hallucinations Cognition: recent memory grossly intact, remote memory grossly intact, attention grossly intact and language grossly intact Estimated Intelligence: consistent with education level Insight: + fair insight Judgment: + fair judgement Vital Signs (Past 24 Hours) Last Vital Signs Temp 36.8 C 11/08/24 06:00 Pulse 100 H 11/08/24 06:28 Resp 18 11/08/24 06:00 BP 138/86 11/08/24 06:28 Pulse Ox 99 11/08/24 06:00 O2 Del Method Room Air 11/08/24 06:00 Results & Data ([facility]) Laboratory Results Laboratory Results - last 24 hr 11/08/24 07:52 Estimat Average Glucose Pending Hemoglobin A1c Pending Triglycerides 187 H Cholesterol 249 H LDL Cholesterol, Calc 166 VLDL Cholesterol, Calc 37 H HDL Cholesterol 46 Cholesterol/HDL Ratio 5.4 H Vitamin B12 Pending 25-OH Vitamin D Total Pending Current Inpatient Medications Current Inpatient Medications: Current Inpatient Medications Acetaminophen (Acetaminophen 325 Mg Tab) 650 mg PO Q4H PRN PRN Reason: Headache or Minor Fever Stop: 12/05/24 09:52 Last Admin: 11/08/24 06:29 Dose: 650 mg Al Hydrox/Mg Hydrox/Simethicone (Aluminum/Magnesium Susp 30 Ml Udc) 30 ml PO Q4H PRN PRN Reason: GI Upset Stop: 12/05/24 09:52 Last Admin: 11/06/24 19:04 Dose: 30 ml Aripiprazole (Aripiprazole 5 Mg Tab) 5 mg PO HS LALO Stop: 12/07/24 21:59 Last Admin: 11/07/24 21:17 Dose: 5 mg Bismuth Subsalicylate (Bismuth Subsalicylate 262 Mg Chew) 2 tab PO Q30M PRN PRN Reason: Loose Stool/Diarrhea Stop: 12/05/24 09:52 Doxycycline Hyclate (Doxycycline Hyclate 100 Mg Cap) 100 mg PO BID [facility] Stop: 11/10/24 20:59 Last Admin: 11/07/24 21:17 Dose: 100 mg Duloxetine HCl (Duloxetine Hcl 20 Mg Cap) 20 mg PO QAM LALO Stop: 12/07/24 08:59 Last Admin: 11/07/24 09:06 Dose: 20 mg Lidocaine (Lidocaine 5% 1 Patch) 1 patch TD QAM PRN PRN Reason: left hip pain Stop: 12/05/24 13:24 Last Admin: 11/07/24 09:48 Dose: 1 patch Magnesium Hydroxide (Magnesium Hydroxide Susp 30 Ml Udc) 30 ml PO DAILY PRN PRN Reason: Constipation Stop: 12/05/24 09:52 Mirtazapine (Mirtazapine Tab 15 Mg Tab) 15 mg PO HS [facility] Stop: 12/06/24 21:59 Last Admin: 11/07/24 21:17 Dose: 15 mg Miscellaneous (Remove Lidoderm Patch) 1 each N/A DAILY@2100 [facility] Stop: 12/05/24 20:59 Last Admin: 11/07/24 21:18 Dose: 1 each Naltrexone HCl (Naltrexone Hcl 50 Mg Tab) 25 mg PO DAILY [facility] Stop: 12/06/24 12:29 Last Admin: 11/07/24 09:06 Dose: 25 mg Ondansetron HCl (Ondansetron 2 Mg Od Tab) 2 mg PO Q8H PRN PRN Reason: Nausea And Vomiting Stop: 12/05/24 13:22 Last Admin: 11/06/24 17:38 Dose: 2 mg Pantoprazole Sodium (Pantoprazole 40 Mg Tab) 40 mg PO BID [facility] Stop: 12/05/24 20:59 Last Admin: 11/07/24 21:17 Dose: 40 mg Sodium Chloride (Sodium Chloride 0.65% Na Soln 45 Ml ([place])) 1 - 2 sprays NA PRN PRN PRN Reason: Nasal Dryness/Congestion Stop: 12/05/24 09:52 Mental Health & Subst Abuse Tx Psychiatrist Name of Psychiatrist: [facility] Comment: Must attend therapy first to start psychiatrist referral Therapist Name of Therapist: Mary Garibay Therapist's Date of Therapist Appointment: 11/16/23 Time of Therapist Appointment: 1200 Therapy Appointment Comment: [address] [facility] [place] [address] Therapist Release of Information: Obtained, Reviewed and Signed Senior Engineering Team Leader Name [facility] Senior Engineering Team Leader[facility] Phone Number for Senior Engineering Team Leader: [phone] Date of Appointment with Senior Engineering Team Leader: 11/16/24 Time of Appointment with Senior Engineering Team Leader: 9am Case Management Appointment Comment: Will meet at your house (2) Suicide attempt by multiple drug overdose Encounter type: initial encounter Qualified Code(s): T50.912A - Poisoning by multiple unspecified drugs, medicaments and biological substances, intentional self-harm, initial encounter
[2024-11-08 09:50] LABS: Estimated Average Glucose 108 mg/dl; Hemoglobin A1C 5.4 % (4.5-5.6)
[2024-11-08] MEDS: ARIPiprazole 15 MG TAB PO SCH (21:42)
[2024-11-09] MEDS: INFLUENZA VACC TS2024-25(6m+)/PF (IIV3) 0.5mL Syr IM ONE (08:32)
[2024-11-09] MEDS: CHOLECALCIFEROL 10 MCG (400 UNITS) TAB PO SCH (08:34)
--- NOTE | 2024-11-09 08:47 | Psychiatric Progress Note ---
Date of Service November 09, 2024 Impression / Recommendations Impression NILES IBARRA is a 64-year-old woman who currently lives in [place], has a history of anxiety and depression, and was admitted on 11/05/24 12:47 on a 201 voluntary commitment for suicide attempt via overdose of propranolol, quetiapine and lamictal) requiring medical admission. Diagnostically consistent with unspecified depression with differential including MDD vs BPAD current depressive episode vs BPAD mixed episode vs alcohol-induced depressive disorder as well as unspecified anxiety. A: Mood continues to improve, sleeping well, tolerating medication changes. Feels hopeful. Family support meeting this afternoon. Overall, I spent a total of 37 minutes on this case including meeting with the patient, reviewing the chart, nursing report, multidisciplinary team meeting, orders, and documentation. (1) Bipolar affective disorder, current episode mixed: (2) Suicide attempt by multiple drug overdose: (3) Intentional overdose: (4) Depression, unspecified: (5) Anxiety: (6) Chronic pain: (7) Alcohol use disorder: Plan 11/09/2024: Continue current medications and tx plan. 11/08/2024: -Increase abilify to 15mg HS -Start Vit D supplementation 11/07/2024: -Start abilify 5mg HS -Fasting lipid panel, HbA1c, Vit D and Vit B12 tomorrow AM 11/06/2024: -Start naltrexone 25mg daily -Start mirtazapine 15mg HS -Start duloxetine 20mg daily tomorrow AM -Discontinue fludrocortisone given sweating and improving BP -Given Mood Disorder Questionnaire/PHQ-9 to complete -ROIs edited to reflect her wish for family not to have access/information about the content of her suicide note 11/05/2024: The patient was admitted to the [facility] ([facility] unit) on q15 min checks (behavioral with suicide precautions) for safety. The patient will participate in group, recreational, and milieu therapies and will be offered additional individual and family sessions as clinically appropriate. -Continue prior to admission medications: protonix, doxcycline (through 11/07/24), lidocaine patch for left hip and fludrocortisone 0.1mg daily for orthostatic hypotension -Zofran prn for nausea Inventory Assets Strengths: supportive relationships, willing to get treatment Needs: safety and stabilization, medication adjustment, additional coping skills, increased outpatient services Suicide Risk Level Suicide Risk Level: Moderate (q15 min suicide checks) (s/p serious suicide attempt but mood improving, denies SI and feels safe in the hospital and able to ask for support) Risk Factors Assessment Male: No : Yes Do You Have Access To A Gun?: No Health Problems: Yes (chronic pain) Mental Health Diagnoses: Yes Substance Use Disorders: Yes Previous Attempt: Yes Family History of Suicide: No Previous Psychiatric Hospitalization: No Hopelessness: No Protective Factors Assessment Stable Relationships: Yes Supportive Family: Yes Interval History Identifying Information NILES IBARRA is a 64-year-old woman who currently lives in [place], has a history of anxiety and depression, and was admitted on 11/05/24 12:47 on a 201 voluntary commitment for suicide attempt via overdose of propranolol, quetiapine and lamictal) requiring medical admission. Chief Complaint "I feel pretty good, a little anxious about the meeting". Review of Systems Sleep Information Total Hours of Sleep: 7.25 Meal Information Percent Meal Consumed - Breakfast: 25 Percent Meal Consumed - Lunch: 100 Percent Meal Consumed - Dinner: 100 Subjective Subjective Patient was seen & assessed and interval progress reviewed with treatment team. More insightful during groups, appropriately tearful at times reflecting on attempt. Working on effective communication skills. Taking notes and working to incorporate new coping skills. Slept >7 hours. Reports slight anxiety about support meeting but otherwise feeling good. Slept well overnight with exception of a few brief awakenings due to disruption from a peer. Had elevated BP this morning but denies any symptoms related to this. Denies any medication side effects. Journaling and finding this helpful. Physical Exam Psychiatric Orientation: alert and oriented x 3 Apperance: appropriately dressed and appropriately groomed Eye Contact: good eye contact Motor Behavior: no abnormal motor movements Speech: normal rate/rhythm/volume of speech Affect: euthymic affect Mood: + anxious mood Thought Process: goal directed thought process Thought Content: reality based without delusions Suicidal Thoughts: denies suicidal thoughts, denies suicidal plan and denies suicidal intent Homicidal Thoughts: denies homicidal thoughts Hallucinations: no auditory hallucinations and no visual hallucinations Cognition: recent memory grossly intact, remote memory grossly intact, attention grossly intact and language grossly intact Estimated Intelligence: consistent with education level Insight: + fair insight Judgment: + fair judgement Vital Signs (Past 24 Hours) Last Vital Signs Temp 36.7 C 11/09/24 06:38 Pulse 106 H 11/09/24 06:38 Resp 16 11/09/24 06:38 BP 164/110 H 11/09/24 06:38 Pulse Ox 99 11/08/24 06:00 O2 Del Method Room Air 11/08/24 06:00 Results & Data ([facility]) Laboratory Results Laboratory Results - last 24 hr 11/08/24 07:52 Estimat Average Glucose 108 Hemoglobin A1c 5.4 Triglycerides 187 H Cholesterol 249 H LDL Cholesterol, Calc 166 VLDL Cholesterol, Calc 37 H HDL Cholesterol 46 Cholesterol/HDL Ratio 5.4 H Vitamin B12 448 25-OH Vitamin D Total 29.8 L Current Inpatient Medications Current Inpatient Medications: Current Inpatient Medications Acetaminophen (Acetaminophen 325 Mg Tab) 650 mg PO Q4H PRN PRN Reason: Headache or Minor Fever Stop: 12/05/24 09:52 Last Admin: 11/08/24 06:29 Dose: 650 mg Al Hydrox/Mg Hydrox/Simethicone (Aluminum/Magnesium Susp 30 Ml Udc) 30 ml PO Q4H PRN PRN Reason: GI Upset Stop: 12/05/24 09:52 Last Admin: 11/08/24 09:27 Dose: 30 ml Aripiprazole (Aripiprazole 15 Mg Tab) 15 mg PO [facility] Stop: 12/08/24 21:59 Last Admin: 11/08/24 21:42 Dose: 15 mg Bismuth Subsalicylate (Bismuth Subsalicylate 262 Mg Chew) 2 tab PO Q30M PRN PRN Reason: Loose Stool/Diarrhea Stop: 12/05/24 09:52 Lidocaine (Lidocaine 5% 1 Patch) 1 patch TD QAM PRN PRN Reason: left hip pain Stop: 12/05/24 13:24 Last Admin: 11/08/24 09:27 Dose: 1 patch Magnesium Hydroxide (Magnesium Hydroxide Susp 30 Ml Udc) 30 ml PO DAILY PRN PRN Reason: Constipation Stop: 12/05/24 09:52 Mirtazapine (Mirtazapine Tab 15 Mg Tab) 15 mg PO [facility] Stop: 12/06/24 21:59 Last Admin: 11/08/24 21:42 Dose: 15 mg Miscellaneous (Remove Lidoderm Patch) 1 each N/A DAILY@2100 [facility] Stop: 12/05/24 20:59 Last Admin: 11/08/24 21:46 Dose: 1 each Naltrexone HCl (Naltrexone Hcl 50 Mg Tab) 25 mg PO DAILY [facility] Stop: 12/06/24 12:29 Last Admin: 11/09/24 08:34 Dose: 25 mg Ondansetron HCl (Ondansetron 2 Mg Od Tab) 2 mg PO Q8H PRN PRN Reason: Nausea And Vomiting Stop: 12/05/24 13:22 Last Admin: 11/06/24 17:38 Dose: 2 mg Pantoprazole Sodium (Pantoprazole 40 Mg Tab) 40 mg PO BID [facility] Stop: 12/05/24 20:59 Last Admin: 11/09/24 08:34 Dose: 40 mg Sodium Chloride (Sodium Chloride 0.65% Na Soln 45 Ml ([place])) 1 - 2 sprays NA PRN PRN PRN Reason: Nasal Dryness/Congestion Stop: 12/05/24 09:52 Vitamin D (Cholecalciferol 10 Mcg (400 Units) Tab) 10 mcg PO QAM [facility] Stop: 12/09/24 08:59 Last Admin: 11/09/24 08:34 Dose: 10 mcg Mental Health & Subst Abuse Tx Psychiatrist Name of Psychiatrist: [facility] Comment: Must attend therapy first to start psychiatrist referral Therapist Name of Therapist: Mary Garibay Therapist's Date of Therapist Appointment: 11/16/23 Time of Therapist Appointment: 1200 Therapy Appointment Comment: [address] [place] [address] Therapist Release of Information: Obtained, Reviewed and Signed Social Media Senior Associate Name of Social Media Senior Associate: [facility] Phone Number for Social Media Senior Associate: [phone] Date of Appointment with Social Media Senior Associate: 11/16/24 Time of Appointment with Social Media Senior Associate: 9am Case Management Appointment Comment: Will meet at your house (2) Suicide attempt by multiple drug overdose Encounter type: initial encounter Qualified Code(s): T50.912A - Poisoning by multiple unspecified drugs, medicaments and biological substances, intentional self-harm, initial encounter
--- NOTE | 2024-11-10 08:42 | Discharge Summary ---
Date of Service November 10, 2024 History of Present Illness Nohemi presents for psychiatric admission following medical admission for suicide attempt via polypharmacy overdose. She reports having no recollection of the suicide attempt rather recalls being out for dinner and drinking multiple whiskey beverages and then waking up at the hospital. She had left a suicide note and texted empty pill bottles to a friend asking the friend to take her dog leading to EMS response, intubation and subsequent ICU and medical stabilization. Currently she reports being glad to be alive and denies current SI. She is hopeful inpatient hospitalization can help her determine how she got to the point of attempting suicide noting "I can't figure out what would have triggered me". Acknowledges struggling with her mood at times including periods of depression and increased anger and impulsivity, especially when drinking hard liquor. Feels her family is an excellent support and loves her dog. States she cannot imagine ever leaving her dog. Reviewed suicide note which states: "So sorry I'm quite the disappointment to my family. You don't know me. Don't postmaster relief me!! I've hated my life from [place]!! NO MORE BLACKSHEEP NOW. NO MORE WORRIES. I LOVED TOO HARD!" Nohemi gives permission for additional collateral from her sister. Her sister provides additional collateral that Nohemi often becomes more emotionally labile with outbursts of anger when she drinks any type of alcohol. Family collateral also notable for concerns for alcohol use and that Nohemi has struggled to maintain any type of consistent employment due to periods of emotional lability. Nohemi seems to go through 1-2 week periods of depression followed by periods of more elevated mood with increased irritability. Has a lot of "ups and downs". Family wonders if she uses alcohol and medications to cope with pain and mood symptoms and also seems to struggle with not overusing medications or substances. Additional information per initial psychiatry consult note by Dr. Schultz on 11/02/2024: "Patient reports feeling isolated and felt like a burden on her family. "Did not know how to reach out to my family". Complains of racing thoughts and difficulty functioning. Reports being under a "lot of stress" and if she told the family that she would be "Sand". Often feels "nervous" and ruminates about financial worries. She denies having low mood. Says she has been isolated for months. Reports escalating medical problems including chronic pain. "Did not want to be a burden". Complains of severed sciatic nerve. Reports having poor recall of what occurred. Remembers doing well that day and was with her nieces and sister. In the evening they went to a country bar and had some drinks and food. She reports being happy. She cannot remember what happened afterwards. She was told that she took 5 bottles of medications. She reports being confused taking medications from multiple doctors and had a 150 mg Seroquel and also 50 mg Seroquel. She denies current suicidal ideation. She reports goals of having better functioning and less racing thoughts. Reports smoking 1 joint of cannabis nightly. Drinks alcohol socially and has many sober days. Denies other drug use. Becomes tearful and feels bad for what her family had to go through regarding the overdose. Home psychiatric medications: Propranlol 10mg TID, Lamotrigine 50mg QD, Paroxetine 40mg QD, Quetiapine 50mg HS. Social history: Patient lives in the home owned by sister. Sister and other family members live close by and supportive. Moved to [place] from 3 years ago and previously lived in [place] for 20 years. Past SSI and recently having difficulty obtaining SSI here. Past outpatient psychiatry at [facility]. No past psychiatric hospitalizations. Some access to firearms through family members." Psychiatric ROS notable for possible history of hypomania. No current or known history of psychosis, PTSD, OCD nor eating disorder. Physical Exam Vital Signs (Past 24 Hours) Last Vital Signs Temp 36.8 C 11/10/24 08:26 Pulse 100 H 11/10/24 08:26 Resp 18 11/10/24 08:26 BP 134/67 11/10/24 08:26 Pulse Ox 99 11/10/24 08:26 O2 Del Method Room Air 11/08/24 06:00 Principal Diagnosis Bipolar Affective Disorder, mixed episode Psychiatric Data See daily stay summary. In short, patient was engaged with the social/therapeutic milieu of the unit, safety was maintained and the patient was cooperative with care. Medication changes included initiation of Abilify for mood stabilization; duloxetine for depression and chronic pain; mirtazapine for depression/anxiety/insomnia; naltrexone 25mg daily for alcohol use and off-label for reducing potential weight gain with Abilify; Vit D supplementation and they tolerated this well. Baseline labs of fasting glucose, fasting lipid profile, and weight were preformed (see labwork results below, TGs and cholesterol elevated). Recommend repeat weight in one month. Recommend repeat fasting glucose, HbA1c and fasting lipid profile every 12 weeks and then annually. If symptoms arise recommend checking BP, EKG, prolactin level as clinically indicated or relevant. A support session was held and safety plan was completed prior to discharge. They participated in safety planning and in discussions about ways to seek support and recognizing warning signs and utilizing coping skills. Reviewed ways to have their safety plan and contacts easily available should thoughts of SI re-emerge in the future. Reviewed importance of seeking emergency care should SI intensify, worsen or should they feel unsafe in the future which they agree to do. On the day of discharge they stated their mood was "optimistic" and remained future-oriented including spending time with family, seeing her dog, shopping at a local [employer] and engaging in aftercare appointments for psychiatry, therapy and case management. Day of Discharge Assessment Today the patient voices readiness for discharge. They note improvement in mood and anxiety. They deny thoughts of harm to self or others. Thoughts are organized and they are clinically improved from admission. There is no evidence of psychosis. They improved in the hospital with support and medication adjustments. They agree to take medications as prescribed and keep follow-up appointments. At the time of the discharge they are deemed to be stable and appropriate for outpatient level of care. They are not deemed to be at imminent risk of harm to self or others. They are aware of emergency and crisis services. Knows to call 911 or go to nearest emergency care center if in a crisis which cannot be handled as an outpatient. Suicide risk assessment: Acute risk is low given improvement in mood and denial of SI, lack of access to lethal means, plan to avoid substance use, improvement in sleep, hopefulness. Chronic risk is moderate given some non-modifiable risk factors: periods of impulsivity, prior attempt, chronic pain, mood disorder but also with protective factors including good social support, sense of responsibility to family and social supports, outpatient care in place, positive coping skills, positive problem solving, willingness to engage with treatment and self-observation. Counseled on ways to reduce acute and chronic risk including engaging with outpatient providers, using safety plan if needed, utilizing supports, taking medication, and using coping skills and learning more coping skills in therapy. Modifiable risk factors of SI and depression were addressed during hospitalization through development of new coping skills, support meeting, safety planning, and medication adjustments. Discharge physical exam: See admission H&P, MSE per above and day of discharge summary. Overall, I spent a total of 35 minutes on this case including meeting with the patient, reviewing the chart, nursing report, multidisciplinary team meeting, discharge orders, anticipatory planning, safety planning, risk assessment and documentation. Transition of Care Transition Of Care Record: was reviewed with the patient Advance Directives Advance Directives Information Provided: Yes Advance Directives: No Mental Health Advance Directive: No Advance Directives on File: No Living Will: No Power of Vault Manager: No Advance Directives Reason:: Declines as Mental Health Visit. Suicide Risk Level Suicide Risk Level Comments: Acute risk is low given denial of SI, see further assessment above Risk Factors Assessment Male: No : Yes Do You Have Access To A Gun?: No Health Problems: Yes (chronic pain) Mental Health Diagnoses: Yes Substance Use Disorders: Yes Previous Attempt: Yes (leading to admission) Family History of Suicide: No Previous Psychiatric Hospitalization: No Hopelessness: No Protective Factors Assessment Stable Relationships: Yes Supportive Family: Yes Good Rapport with Provider: Yes (PCP) Discharge Data Lab Results 11/08/24 07:52 Estimat Average Glucose 108 Hemoglobin A1c 5.4 Triglycerides 187 H Cholesterol 249 H LDL Cholesterol, Calc 166 VLDL Cholesterol, Calc 37 H HDL Cholesterol 46 Cholesterol/HDL Ratio 5.4 H Vitamin B12 448 25-OH Vitamin D Total 29.8 L Hospital Course (1) Bipolar affective disorder, current episode mixed: (2) Suicide attempt by multiple drug overdose: (3) Intentional overdose: (4) Depression, unspecified: (5) Anxiety: (6) Chronic pain: (7) Alcohol use disorder: Plan 11/10/2024: Stable and ready for discharge 11/09/2024: Continue current medications and tx plan. 11/08/2024: -Increase abilify to 15mg HS -Start Vit D supplementation 11/07/2024: -Start abilify 5mg HS -Fasting lipid panel, HbA1c, Vit D and Vit B12 tomorrow AM 11/06/2024: -Start naltrexone 25mg daily -Start mirtazapine 15mg HS -Start duloxetine 20mg daily tomorrow AM -Discontinue fludrocortisone given sweating and improving BP -Given Mood Disorder Questionnaire/PHQ-9 to complete -ROIs edited to reflect her wish for family not to have access/information about the content of her suicide note 11/05/2024: The patient was admitted to the [facility] ([facility] unit) on q15 min checks (behavioral with suicide precautions) for safety. The patient will participate in group, recreational, and milieu therapies and will be offered additional individual and family sessions as clinically appropriate. -Continue prior to admission medications: protonix, doxcycline (through 11/07/24), lidocaine patch for left hip and fludrocortisone 0.1mg daily for orthostatic hypotension -Zofran prn for nausea Mental Health & Subst Abuse Tx Psychiatrist Name of Psychiatrist: [facility] Comment: Must attend therapy first to start psychiatrist referral Therapist Name of Therapist: Mary Garibay Therapist's Date of Therapist Appointment: 11/16/23 Time of Therapist Appointment: 1200 Therapy Appointment Comment: [address] [place] [address] Therapist Release of Information: Obtained, Reviewed and Signed Debit Agent [facility] Phone Number for Debit Agent: [phone] Date of Appointment with Debit Agent: 11/16/24 Time of Appointment with Debit Agent: 9am Case Management Appointment Comment: Will meet at your house Post Discharge Appointments Contact Information Discharge Discharge Address: [address] [place] [address] Discharge Plan Discharge Items Patient Disposition: Home - Self-Care Reason For Visit: UNSPECIFIED DEPRESSIVE DISORDER Discharge Diagnosis: Bipolar Affective Disorder, mixed episode Activity: Resume your previous activity Non-emergency contact: Primary Care Provider, Psychiatrist, Therapist and Certified Dietary Manager Call non-emergency contact if: you have any medication questions and your symptoms worsen Follow-up/Referrals: Florecita Tucker DO [Primary Care Provider] - Diet: Regular Addtl Attending Provider Instructions: Optional mobile apps: -Suicide safety plan -Virtual [employer] SPECIAL CARE INSTRUCTIONS: 1. Follow through with your scheduled aftercare appointments. If unable to keep an appointment, please call to reschedule. 2. Take your medication only as prescribed. Medication should not be changed or stopped without the approval of your doctor. In the event of worsening symptoms or concerns about side effects, contact your doctor immediately. 3. Utilize new healthy coping skills, anger management skills, and stress management skills learned during your hospitalization. Journal feelings and process them with a support person. Identify stressors or situations that may result in relapse, deterioration or inappropriate behaviors and develop a plan to deal with those issues. 4. If your coping skills are ineffective and you are in crisis, contact your outpatient providers for direction. If unable to reach your providers, please call the [facility] CRISIS LINE AT , go to the [facility] walk-in center at [address], [address], [place], or go to the closest Emergency Room. 5. Avoid alcohol and un-prescribed drugs. 6. You have been provided with the Mental Health Advance Directives Pamphlet for your review. 7. Your condition is stable for discharge to outpatient level of care, but recovery is an ongoing process. Ifthoughts to harm yourself or others return, follow the safety plan developed during your stay. Planning for a safe return home includes securing weapons. Our treatment team recommends weaponsbe removed from the home until your outpatient provider reassesses your progress. In rare cases where the items themselvescannot be removed, guns and ammunitionshould be secured separatelyand keys stored by a reliable personoutside of the home. If you were admitted on an involuntary commitment, the police or other legal authorities may be involved in this process. AFTERCARE APPOINTMENTS: * Please call your insurance company prior to your scheduled appointment to confirm your aftercare providers are covered. Take your insurance information to your appointments. WHO TO CALL AND WHEN: Medical Emergencies: For questions or emergencies related to your hospital stay, please contact the Inpatient Behavioral Health Unit at [phone]. A advertising space clerk is on-call 31/05 for the Behavioral Health Unit for emergencies At any time you feel your situation is an emergency, you may also call 911 immediately. National Crisis Hotline: 988 Pending Studies at Discharge: No Stand-Alone Forms: My [facility] Medications and DC Order Prescriptions: New naltrexone 50 mg Tablet 25 mg PO DAILY 30 Days Qty: 15 0RF lidocaine 5 % Adhesive Patch,Medicated 1 patch transdermal QAM PRN (Reason: hip pain) 30 Days Qty: 30 0RF mirtazapine 15 mg Tablet 15 mg PO HS 30 Days Qty: 30 0RF cholecalciferol (vitamin D3) [Vitamin D3] 10 mcg (400 unit) Tablet 10 mcg PO QAM 30 Days Qty: 30 0RF aripiprazole [Abilify] 15 mg Tablet 15 mg PO HS 30 Days Qty: 30 0RF duloxetine 20 mg capsule,delayed release(DR/EC) 20 mg PO DAILY 30 Days Qty: 30 0RF Continued riboflavin (vitamin B2) 100 mg tablet 100 mg PO DAILY pantoprazole 40 mg tablet,delayed release (DR/EC) 40 mg PO DAILY sumatriptan succinate 25 mg tablet See Rx Instructions PO .COMPLEX Rx Instructions: take 1 tab at onset of headache; if no relief may repeat 1 tab after at least 2 hrs; max = 4 tabs/24 hr PO Discontinued gabapentin 400 mg capsule 400 mg PO TID Hold Instructions: Resume on 11/08/24. until cleared by psych magnesium oxide 400 mg (241.3 mg magnesium) tablet 400 mg PO DAILY meloxicam 15 mg tablet 15 mg PO DAILY paroxetine HCl 40 mg tablet 40 mg PO DAILY Hold Instructions: Resume on 11/08/24. until cleared by psych folic acid 1 mg tablet 1 mg PO DAILY lamotrigine 25 mg tablet 50 mg PO DAILY Hold Instructions: Resume on 11/08/24. until cleared by psych doxycycline hyclate 100 mg Capsule 100 mg PO BID 5 Days Qty: 10 0RF propranolol 10 mg tablet 10 mg PO BID quetiapine 50 mg tablet 100 mg PO DAILY amitriptyline 25 mg tablet 25 mg PO HS Discharge Orders: Discharge Order (Routine); Ordered 11/10/24 Ordered By: Winifred Toure Admission Data Admit Date/Time: 11/05/24 12:47 Attending Provider: Winifred Toure Admit Provider: Winifred Toure Primary Care Provider: Florecita Tucker Other Interventions: Discharge Summary Assessment (RN) Last Done: 11/10/24 08:26 PSY Interdisciplinary Discharge Planning Last Done: 11/10/24 09:51 Coding Level of Care Code 86210 D/C day mgmt > 30 min Diagnoses Bipolar affective disorder, current episode mixed F31.60 Suicide attempt by multiple drug overdose T50.912A Encounter type: initial encounter Intentional overdose T50.902A Depression, unspecified F32.A Anxiety F41.9 Chronic pain G89.29 Alcohol use disorder F10.90
== END 2024-11-10 10:10 | disposition home or self-care (01) | DRG 885 ==
LOC: 3S 12:47